=== PATIENT | female | born 1945 | race Caucasian/White ===

== ENCOUNTER 2020-01-06 13:19 | Outpatient (CLI) | payer MEDICARE, OTHER, SELFPAY ==
--- NOTE | 2020-01-06 13:33 | XR_ITS ---
WS: [id number] WRIST RIGHT TECHNIQUE: 3 views of the right wrist CLINICAL INFORMATION: PAIN IN RIGHT WRIST COMPARISON: None. FINDINGS: Moderate diffuse edema right arm and right hand. Degenerative arthritis the first CMC. No acute fract ures. Normal scapholunate interval. Normal radiocarpal joint. Distal radial ulnar joint is normal. Hy pertrophic spurring along the dorsal carpal bones. XR/XR wrist RT min 3V* [id number] IMPRESSION: 1. Moderate diffuse soft tissue edema. No acute fractures. 2. Degenerative arthritis first CMC.
--- NOTE | 2020-01-06 13:33 | XR_ITS ---
WS: [id number] ANKLE RIGHT TECHNIQUE: 3 views of the right ankle CLINICAL INFORMATION: PAIN IN RIGHT ANKLE AND JOINTS OF RIGHT FOOT COMPARISON: None. FINDINGS: Soft tissue edema. Screw fixation across the medial malleolus. Plate and screw fixation distal fibula lateral malleolus. Degenerative arthritis of the ankle mortise. Achilles and plantar calcaneal spurr ing. IMPRESSION: Moderate soft tissue edema with postoperative changes described above.
== END 2020-01-06 13:20 | disposition home or self-care (01) ==
PROVIDERS: Family Provider Nurse Practitioner Family; PCP Nurse Practitioner Family; Visit Provider Nurse Practitioner Family
DX: M19.031 Primary osteoarthritis, right wrist (principal); M25.531 Pain in right wrist; M25.571 Pain in right ankle and joints of right foot; R60.9 Edema, unspecified; Z98.890 Other specified postprocedural states
CPT/HCPCS: 73110; 73610

== ENCOUNTER 2020-04-19 12:42 | Outpatient (CLI) | payer MEDICARE, OTHER, SELFPAY ==
--- NOTE | 2020-04-19 12:50 | XR_ITS ---
WS: [id number] Lumbar spine, 3 views, 04/19/2020 Clinical Data: LOW BACK PAIN Comparison: Lumbar spine, 11/26/2008. Findings: No compression fractures or subluxation is seen. Degenerative disc narrowing is present at L4-L5 and L5-S1. There is a slight dextroscoliosis of the lumbar spine. Osteoarthritic spurring of all the lumb ar vertebral bodies is noted. The transverse processes and SI joints are normal. XR/XR lumbar spine 2-3V* [id number] Impression: 1. Degenerative disc disease at L4-L5 and L5-S1. 2. 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
== END 2020-04-19 12:43 | disposition home or self-care (01) ==
LOC: RADWPI 12:45
PROVIDERS: Family Provider Nurse Practitioner Family; PCP Nurse Practitioner Family; Visit Provider Nurse Practitioner Family
DX: M54.5 Low back pain (principal); R20.0 Anesthesia of skin; M51.36 Other intervertebral disc degeneration, lumbar region; M47.816 Spondylosis without myelopathy or radiculopathy, lumbar region
CPT/HCPCS: 72100

== ENCOUNTER → 2020-05-09 08:16 | Outpatient (BNVA) | payer MEDICARE, OTHER, SELFPAY | PROVIDERS: Family Provider Nurse Practitioner Family; PCP Nurse Practitioner Family; Referring Provider Nurse Practitioner Family; Visit Provider Anesthesiology Pain Medicine | DX: M54.42 Lumbago with sciatica, left side (principal); M62.830 Muscle spasm of back; M54.9 Dorsalgia, unspecified; M47.816 Spondylosis without myelopathy or radiculopathy, lumbar region; M48.061 Spinal stenosis, lumbar region without neurogenic claudication; Z79.891 Long term (current) use of opiate analgesic | CPT/HCPCS: 99204 ==

== ENCOUNTER → 2020-05-24 13:30 | Outpatient (BNVA) | payer MEDICARE, OTHER, SELFPAY | PROVIDERS: Family Provider Nurse Practitioner Family; PCP Nurse Practitioner Family; Visit Provider Anesthesiology Pain Medicine | DX: M47.816 Spondylosis without myelopathy or radiculopathy, lumbar region (principal); M54.9 Dorsalgia, unspecified | CPT/HCPCS: 64493; 64494; 64495; J3490 ==

== ENCOUNTER → 2020-06-07 09:38 | Outpatient (BNVA) | payer MEDICARE, OTHER, SELFPAY | PROVIDERS: Family Provider Nurse Practitioner Family; PCP Nurse Practitioner Family; Visit Provider Anesthesiology Pain Medicine | DX: M47.816 Spondylosis without myelopathy or radiculopathy, lumbar region (principal); M48.061 Spinal stenosis, lumbar region without neurogenic claudication; M54.9 Dorsalgia, unspecified; M62.830 Muscle spasm of back | CPT/HCPCS: 99213 ==

== ENCOUNTER → 2020-06-15 14:20 | Outpatient (BNVA) | payer MEDICARE, OTHER, SELFPAY | PROVIDERS: Family Provider Nurse Practitioner Family; PCP Nurse Practitioner Family; Visit Provider Anesthesiology Pain Medicine | DX: M47.816 Spondylosis without myelopathy or radiculopathy, lumbar region (principal); M54.9 Dorsalgia, unspecified | CPT/HCPCS: 64635; 64636; J1030 ==

== ENCOUNTER → 2020-06-29 12:21 | Outpatient (BNVA) | payer MEDICARE, OTHER, SELFPAY | PROVIDERS: Family Provider Nurse Practitioner Family; PCP Nurse Practitioner Family; Visit Provider Anesthesiology Pain Medicine | DX: M47.816 Spondylosis without myelopathy or radiculopathy, lumbar region (principal); M54.9 Dorsalgia, unspecified | CPT/HCPCS: 64635; 64636; J1030 ==

== ENCOUNTER → 2020-07-13 09:57 | Outpatient (BNVA) | payer MEDICARE, OTHER, SELFPAY | PROVIDERS: Family Provider Nurse Practitioner Family; PCP Nurse Practitioner Family; Visit Provider Anesthesiology Pain Medicine | DX: M47.816 Spondylosis without myelopathy or radiculopathy, lumbar region (principal); M48.061 Spinal stenosis, lumbar region without neurogenic claudication; M54.9 Dorsalgia, unspecified; M62.830 Muscle spasm of back | CPT/HCPCS: 99213 ==

== ENCOUNTER → 2020-08-24 12:46 | Outpatient (BNVA) | payer MEDICARE, OTHER, SELFPAY | PROVIDERS: Family Provider Nurse Practitioner Family; PCP Nurse Practitioner Family; Visit Provider Anesthesiology Pain Medicine | DX: M54.16 Radiculopathy, lumbar region (principal); M54.9 Dorsalgia, unspecified | CPT/HCPCS: 64483; 64484; J1040; J3490 ==

== ENCOUNTER → 2020-09-07 10:27 | Outpatient (BNVA) | payer MEDICARE, OTHER, SELFPAY | PROVIDERS: Family Provider Nurse Practitioner Family; PCP Nurse Practitioner Family; Visit Provider Anesthesiology Pain Medicine | DX: M54.42 Lumbago with sciatica, left side (principal); M47.816 Spondylosis without myelopathy or radiculopathy, lumbar region; M48.061 Spinal stenosis, lumbar region without neurogenic claudication; M62.830 Muscle spasm of back; M79.605 Pain in left leg; M54.9 Dorsalgia, unspecified | CPT/HCPCS: 99213 ==

== ENCOUNTER 2020-11-16 09:18 | Outpatient (CLI) | payer MEDICARE, OTHER, SELFPAY ==
[2020-11-16 09:20] VITALS: BP 166/92; BP 169/88; PULSE 71; PULSE 77; RESP 14; RESP 18; TEMP 36.6; O2SAT 95; O2SAT 96
--- NOTE | 2020-11-16 09:46 | AMB.MCA ---
Patient Information Referred by: Symptom onset date: 11/12/20 COVID 19 common symptoms: positive cough, non-productive cough, fatigue, body aches and nasal congestion COVID 19 other sytmptoms: negative chest pressure, chest pain, pleuritic pain, requiring oxygen or requiring more oxygen Severity: mild Treatment prior to arrival: none OZH COVID test results: No Data to Display outside results available, scanned Criteria/Plan Inclusion/Exclusion Criteria weight >/= 40kg, + direct test </= 10 days ago and symptom onset </= 10 days ago age >/= 65 not requiring hospitalization, not requiring oxygen (if not chronically on oxygen) and no increase oxygen requirement (if chronically on oxygen) Patient education patient/caregiver received/reviewed fact sheet, Emergency Use Authorization/unapproved drug status discussed with patient/caregiver, alternatives to this treatment discussed with patient/caregiver, risks and benefits of medication reviewed with patient/caregiver, patient/caregiver given opportunity for questions, which were answered and patient/caregiver consents to receiving Monoclonal Antibody Treatment Plan for treatment Meets criteria for Monoclonal Antibody infusion Ordering Monoclonal Antibody infusion for today
[2020-11-16 10:32] VITALS: BP 171/89; PULSE 63; RESP 16; TEMP 36.6; O2SAT 96
[2020-11-16 11:02] VITALS: BP 164/89; PULSE 66; RESP 16; TEMP 36.7; O2SAT 96
--- NOTE | 2020-11-16 11:27 | PC.NURSE ---
Prn note Patient infusion complete with no side effects noted. Will continue to monitor post infusion.
[2020-11-16 12:08] VITALS: BP 166/92; PULSE 71; RESP 14; TEMP 36.6; O2SAT 95
--- NOTE | 2020-11-16 12:10 | PC.NURSE ---
Discharge note Patient iv removed with catheter intact. Pressure dressing applied. Patient tolerated well. Patient monitored for post infusion side effects with no side effects noted. Patient left ambulatory to private vehicle.
--- NOTE | 2020-11-23 12:16 | DCPLANNER ---
Addendum entered by Freda Allen 11/29/20 13:46: repair manager called to check on patient after getting the BAM infusion. Patient stated that she is not feeling good at all. Still has all of the symptoms of COVID - patient has a follow up appointment with her primary care physician. She stated that she has not been admitted to hospital. Original Note: repair manager had message that patient received the BAM infusion. repair manager called to check on patient after receiving the BAM infusion. Patient stated that before the infusion she had a cold, had a cough and a fever. Patient stated that after the infusion, she is feeling good, she stated that her muscles are sore, and she has been light headed. Patient stated that she is going to call her primary care physician and scheduling an appointment.
== END 2020-11-16 12:13 | disposition home or self-care (01) ==
PROVIDERS: PCP Nurse Practitioner Family; Referring Provider Nurse Practitioner Family; Visit Provider Nurse Practitioner
DX: U07.1 COVID-19 (principal)
CPT/HCPCS: 96365; J7050

== ENCOUNTER 2020-12-22 10:35 | Inpatient (IN) | payer MEDICARE, OTHER, SELFPAY ==
[2020-12-22] VITALS (65 sets, daily range): BP systolic 129–216; BP diastolic 56–129; PULSE 81–118; RESP 17–42; TEMP 36.8–37.7; O2SAT 85–98; BMI 47.0
--- NOTE | 2020-12-22 11:03 | CT_ITS ---
WS: [id number] CT CHEST ANGIOGRAPHY WITH REFORMATS HISTORY: dyspnea post COVID TECHNIQUE: Contiguous axial images are obtained through the chest during arterial injection of intrav enous contrast. Images are reconstructed to evaluate the pulmonary arteries. MIP imaging also reviewe d. All CT scans at [facility] use at least one of these dose optimization techniques: aut omated exposure control; mA and/or kV adjustment per patient size (includes targeted exams where dose is matched to clinical indication); or iterative reconstruction. CONTRAST: Omnipaque 350; 95 mL IV. DLP: 575.48 mGy.cm COMPARISON: None available. Small bilateral lower lobe pulmonary emboli. There are scattered emboli extending from the proximal l obar branches into the segmental branches. There is mild dilatation of the RIGHT pulmonary artery. Th e main pulmonary artery is normal size. Atherosclerosis aorta. Small bilateral pleural effusions. Compressive atelectasis at the lung bases, LEFT greater than RIGHT . Small pericardial effusion. No adenopathy. Tricuspid regurgitation into hepatic vein. Stable RIGHT adrenal adenoma. LEFT parapelvic cysts. CT/CT angio chest PE protcl [id number] IMPRESSION: 1. Bilateral lower lobe pulmonary emboli. 2. Small bilateral pleural effusions with bibasilar atelectasis. 3. Cardiomegaly.
--- NOTE | 2020-12-22 11:03 | ECG_ITS ---
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: : 1945 Requested By: Franky Garcia Order Number: [id number] Reading MD: SAMANTHA LYON Measurements Intervals [place] Rate: 134 P: CO: QRS: 67 QRSD: 89 T: -55 QT: 301 QTc: 451 Interpretive Statements ATRIAL FIBRILLATION WITH RAPID VENTRICULAR RESPONSE LOW QRS VOLTAGE IN PRECORDIAL LEADS [QRS DEFLECTION < 1.0 mV IN CHEST LEADS] ST DEVIATION AND MODERATE T-WAVE ABNORMALITY, CONSIDER INFERIOR ISCHEMIA [-0.1+ mV T WAVE IN II/aVF] No previous ECG available for comparison Electronically Signed On 12-22-2020 18:17:33 BATTERY TESTER by SAMANTHA LYON [email or web address] regional hospitalCompringcleveland clinic mercy hospital.[employer]/store/OM/[id number]
--- NOTE | 2020-12-22 11:10 | W.ED.COVID ---
HPI - COVID General: Chief Complaint: COVID symptoms Stated Complaint: BODY ACHES, SOB, COVID +11/15 Time Seen by Provider: 12/22/20 10:53 Triage information: Has fever, cough or shortness of breath. No known COVID + exposure last 14 days History of Present Illness: HPI Narrative: 75 yo male presents emergency room complaining of fever and shortness of breath. States she has had these symptoms since mid November. November 15 she tested positive for Covid on the she received a bam infusion. She finished out her quarantine was not hospitalized and did not have any other problems other than she did end up requiring oxygen. She wears 2.5 L/min by nasal cannula at night only. This started after she was diagnosed. She had a low-grade temps up to 100.3 middle of a productive cough but no colored sputum. She gets some chest pain that begins epigastric and radiates up into the center of her chest does not go into the neck or arms. She is not diabetic not hypertensive no history of cancer no history of diabetes or heart disease. Prior testing date: 11/15/20 COVID 19 common symptoms: positive fever(s), chills, cough, productive cough, dyspnea, fatigue, body aches, nasal congestion, nausea and vomiting; negative headache(s), loss of sense of smell and/or taste, throat pain or diarrhea COVID 19 other sytmptoms: positive requiring oxygen; negative chest pain Onset (ago): week(s) Severity: mild Pertinent comorbid conditions: on home oxygen Treatment prior to arrival: none COVID Results: Nasal/Oral Coronavirus 2019 PCR Pending 12/22/20 21:49 12/22/20 Review of Systems Const: Reports: fever(s), chills, body aches and fatigue ENMT: Reports: nasal congestion; Denies: throat pain Card: Denies: chest pain, edema, dyspnea on exertion or orthopnea Resp: Reports: dyspnea and productive cough GI: Reports: nausea and vomiting; Denies: diarrhea : Denies: flank pain, difficulty voiding, dysuria, urinary frequency or urinary urgency Skin/Breast: Denies: rash or pruritus Neuro: Denies: headache(s) PFS ED PFSH: Family History Other Cancer Diabetes Social History Smoking and tobacco status: never smoked Second hand smoke exposure: No Alcohol intake: never History of recent travel: No Physical Exam Const: COMMON NORMALS: no acute distress GENERAL APPEARANCE: cooperative and comfortable ORIENTATION/CONSCIOUSNESS: Yes awake, Yes oriented to person, Yes oriented to place and Yes oriented to time HENMT: COMMON NORMALS: normocephalic, atraumatic and hearing grossly normal bilaterally HEAD & SCALP: normocephalic and atraumatic Neck/C-Spine: COMMON NORMALS: no JVD Resp: COMMON NORMALS: normal respiratory effort, No retractions and No use of accessory muscles AUSCULTATION: rales, wheezes and diminished lung sounds bilateral in the lower lung tom Cardio: COMMON NORMALS: no JVD, regular rate, regular rhythm and No murmurs present (Cardio) RATE: regular rate RHYTHM: regular rhythm GI: COMMON NORMALS: Soft to palpation and No hepatosplenomegaly present AUSCULTATION: Yes normoactive bowel sounds PALPATION: Yes Soft to palpation, No Tenderness to palpation present (GI), No Guarding due to palpation present (GI) and Yes No hepatosplenomegaly present Extremity: COMMON NORMALS: normal to inspection, capillary refill normal, no clubbing, cyanosis or edema, no calf tenderness and no pedal edema Neuro: SENSORIUM/ORIENTATION: Yes oriented to person, Yes oriented to place and Yes oriented to time Skin: COMMON NORMALS: no rashes or lesions noted GENERAL SKIN EXAM: no rashes or lesions noted Course Vital Signs: Vital signs: Vital Signs Temperature 98.7 F 12/23/20 08:00 Pulse Rate 97 12/23/20 12:00 Respiratory Rate 37 H 12/23/20 12:00 Blood Pressure 91/73 12/23/20 12:00 Pulse Oximetry 93 12/23/20 12:00 MDM - COVID MDM Narrative: Medical decision making narrative: Patient is bilateral pulmonary emboli as well as pulmonary effusions started on heparin in the event they decide to drain the effusions. I am also suspicious of underlying secondary pneumonia. Will admit to the hospitalist consult pulmonology or radiology for draining effusions as needed. Discussed with the patient and with ssis ssrs developer and hospitalist orders are written Lab Data: Labs: Lab Results 12/22/20 12/22/2012/22/21 Range/Units 11:11 11:40 11:40 WBC 16.5 H (4.0-10.0) 10^3/ uL RBC 4.04 L (4.1-5.3) 10^6/u L Hgb 10.9 L (11.5-15.3) g/dL Hct 36.5 L (37.0-47.0) % MCV 90.3 (81-99) fL MCH 27.0 L (28.0-34.0) pg MCHC 29.9 L (30.0-36.0) g/dL RDW 13.7 (12.1-15.1) % Plt Count 606 H (130-400) 10^3/c mm MPV 9.2 (7.4-10.4) fL Neut % (Auto) 78.7 % Lymph % (Auto) 12.2 % Nobles % (Auto) 7.8 % Eos % (Auto) 0.1 % Baso % (Auto) 0.2 % Neut # (Auto) 12.98 H (1.8-7.7) 10^3/u L Lymph # (Auto) 2.0 (0.8-4.8) 10^3/u L Nobles # (Auto) 1.3 H (0.2-0.9) 10^3/u L Eos # (Auto) 0.0 (0.0-0.8) 10^3/u L Baso # (Auto) 0.0 (0.0-0.1) 10^3/u L Nucleated RBC % (a uto) 0 % Nucleated RBCs # 0.0 /100WBC D-Dimer 6.09 H (0-0.59) ug/mIFE U Specimen Type Arterial Sample Site Right radial ABG pH 7.50 H (7.35-7.45) ABG pCO2 39.9 (35-45) mmHg ABG pO2 67.8 L (80.0-100.0) mmH g ABG HCO3 30.9 H (22-26) mmol/L ABG Base Excess 7.1 H (-2.0-2.0) mmol/ L Clayton Test Yes Hematocrit 34.7 L (37-47) % O2 Delivery Device Nasal cannula [employer] Developer ID [place] Sodium (136-145) mmol/L Potassium (3.5-5.1) mmol/L Chloride (98-107) mmol/L Carbon Dioxide (22-29) mmol/L Anion Gap (5-19) BUN (8-23) mg/dL Creatinine (0.5-0.9) mg/dL GFR Calculation Glucose (65-115) mg/dL Calculated Osmolal ity (285-295) mOsm/k g Lactic Acid (0.5-2.2) mmol/L Calcium (8.5-10.5) mg/dL Total Bilirubin (0.15-1.2) mg/dL AST (0-32) U/L ALT (0-33) U/L Alkaline Phosphata se (35-105) IU/L Creatine Kinase (26-192) U/L Troponin T Baselin e (0-10) ng/L Troponin T 120 Min mary[place] igloo (0-10) ng/L Delta Troponin T (0-10) ABS# C-Reactive Protein (0.0-4.9) mg/L NT-Pro-B Natriuret Pep (0-450) pg/mL Total Protein (6.6-8.7) g/dL Albumin (3.5-5.2) g/dL Globulin (1.3-4.6) g/dL Procalcitonin (0-0.5) ng/mL 12/22/20 12/22/20 12/22/20 Range/Units 11:40 11:40 11:40 WBC (4.0-10.0) 10^3/ uL RBC (4.1-5.3) 10^6/u L Hgb (11.5-15.3) g/dL Hct (37.0-47.0) % MCV (81-99) fL MCH (28.0-34.0) pg MCHC (30.0-36.0) g/dL RDW (12.1-15.1) % Plt Count (130-400) 10^3/c mm MPV (7.4-10.4) fL Neut % (Auto) % Lymph % (Auto) % Nobles % (Auto) % Eos % (Auto) % Baso % (Auto) % Neut # (Auto) (1.8-7.7) 10^3/u L Lymph # (Auto) (0.8-4.8) 10^3/u L Nobles # (Auto) (0.2-0.9) 10^3/u L Eos # (Auto) (0.0-0.8) 10^3/u L Baso # (Auto) (0.0-0.1) 10^3/u L Nucleated RBC % (a uto) % Nucleated RBCs # /100WBC D-Dimer (0-0.59) ug/mIFE U Specimen Type Sample Site ABG pH (7.35-7.45) ABG pCO2 (35-45) mmHg ABG pO2 (80.0-100.0) mmH g ABG HCO3 (22-26) mmol/L ABG Base Excess (-2.0-2.0) mmol/ L Clayton Test Hematocrit (37-47) % O2 Delivery Device [employer] Developer ID Sodium 142 (136-145) mmol/L Potassium 4.6 (3.5-5.1) mmol/L Chloride 104 (98-107) mmol/L Carbon Dioxide 28 (22-29) mmol/L Anion Gap 14.6 (5-19) BUN 13 (8-23) mg/dL Creatinine 0.5 (0.5-0.9) mg/dL GFR Calculation Not Reportable Glucose 146 H (65-115) mg/dL Calculated Osmolal ity 297 H (285-295) mOsm/k g Lactic Acid 1.2 (0.5-2.2) mmol/L Calcium 8.5 (8.5-10.5) mg/dL Total Bilirubin 0.2 (0.15-1.2) mg/dL AST 35 H (0-32) U/L ALT 59 H (0-33) U/L Alkaline Phosphata se 101 (35-105) IU/L Creatine Kinase 26 (26-192) U/L Troponin T Baselin e 12 H (0-10) ng/L Troponin T 120 Min [place] (0-10) ng/L Delta Troponin T (0-10) ABS# C-Reactive Protein 146.5 H (0.0-4.9) mg/L NT-Pro-B Natriuret Pep (0-450) pg/mL Total Protein 5.6 L (6.6-8.7) g/dL Albumin 2.6 L (3.5-5.2) g/dL Globulin 3.0 (1.3-4.6) g/dL Procalcitonin (0-0.5) ng/mL 12/22/20 12/22/20 12/22/20 Range/Units 11:40 14:16 14:16 WBC (4.0-10.0) 10^3/ uL RBC (4.1-5.3) 10^6/u L Hgb (11.5-15.3) g/dL Hct (37.0-47.0) % MCV (81-99) fL MCH (28.0-34.0) pg MCHC (30.0-36.0) g/dL RDW (12.1-15.1) % Plt Count (130-400) 10^3/c mm MPV (7.4-10.4) fL Neut % (Auto) % Lymph % (Auto) % Nobles % (Auto) % Eos % (Auto) % Baso % (Auto) % Neut # (Auto) (1.8-7.7) 10^3/u L Lymph # (Auto) (0.8-4.8) 10^3/u L Nobles # (Auto) (0.2-0.9) 10^3/u L Eos # (Auto) (0.0-0.8) 10^3/u L Baso # (Auto) (0.0-0.1) 10^3/u L Nucleated RBC % (a uto) % Nucleated RBCs # /100WBC D-Dimer (0-0.59) ug/mIFE U Specimen Type Sample Site ABG pH (7.35-7.45) ABG pCO2 (35-45) mmHg ABG pO2 (80.0-100.0) mmH g ABG HCO3 (22-26) mmol/L ABG Base Excess (-2.0-2.0) mmol/ L Clayton Test Hematocrit (37-47) % O2 Delivery Device [employer] Developer ID Sodium (136-145) mmol/L Potassium (3.5-5.1) mmol/L Chloride (98-107) mmol/L Carbon Dioxide (22-29) mmol/L Anion Gap (5-19) BUN (8-23) mg/dL Creatinine (0.5-0.9) mg/dL GFR Calculation Glucose (65-115) mg/dL Calculated Osmolal ity (285-295) mOsm/k g Lactic Acid (0.5-2.2) mmol/L Calcium (8.5-10.5) mg/dL Total Bilirubin (0.15-1.2) mg/dL AST (0-32) U/L ALT (0-33) U/L Alkaline Phosphata se (35-105) IU/L Creatine Kinase (26-192) U/L Troponin T Baselin e (0-10) ng/L Troponin T 120 Min [place] 11.57 H (0-10) ng/L Delta Troponin T -0.43 L (0-10) ABS# C-Reactive Protein (0.0-4.9) mg/L NT-Pro-B Natriuret Pep 1137 H (0-450) pg/mL Total Protein (6.6-8.7) g/dL Albumin (3.5-5.2) g/dL Globulin (1.3-4.6) g/dL Procalcitonin 0.12 (0-0.5) ng/mL COVID Results: Nasal/Oral Coronavirus 2019 PCR Pending 12/22/20 21:49 12/22/20 Discharge Plan Discharge Admit Provider: Baljinder Sales Coding Level of Care Code ED Preschool Teacher'S Assistant for [facility] Fwd Exam Comprehensive
[2020-12-22 11:26] LABS: ABG PCO2 39.9 mmHg (35-45); Base Excess ABG 7.1 mmol/L (-2.0-2.0); Blood Gas Allen Test YES; Blood Gas Operator Identificat MONRO; HCO3 ABG 30.9 mmol/L (22-26); PO2 ABG 67.8 mmHg (80.0-100.0)
[2020-12-22 11:27] LABS: Arterial Blood Gas Hematocrit 34.7 % (37-47); Blood Gas Sample Site RIGHT RADIAL; Blood Gas Sample Type ARTERIAL; Oxygen Device NASAL CANNULA
[2020-12-22 12:12] LABS: Basophils % 0.2 %; Eosinophils % 0.1 %; Hematocrit 36.5 % (37.0-47.0); Hemoglobin 10.9 g/dL (11.5-15.3); Lymphocytes % 12.2 %; Mean Corpuscular HGB Conc 29.9 g/dL (30.0-36.0); Mean Corpuscular Volume 90.3 fL (81-99); Mean Platelet Volume 9.2 fL (7.4-10.4); Monocytes # 1.3 10^3/uL (0.2-0.9); Monocytes % 7.8 %; Neutrophils # 12.98 10^3/uL (1.8-7.7); Neutrophils % 78.7 %; Nucleated Red Blood Cells % 0 %; Platelet Count 606 10^3/cmm (130-400); Red Blood Count 4.04 10^6/uL (4.1-5.3); Red Cell Distribution Width 13.7 % (12.1-15.1); White Blood Count 16.5 10^3/uL (4.0-10.0)
[2020-12-22] MEDS: metoprolol tartrate 1 mg/1 mL SDV 5 mL 5 MG IV (12:17)
[2020-12-22] MEDS: metoprolol tartrate 50 mg Tablet PO (12:19)
[2020-12-22 12:23] LABS: Alanine Aminotransferase 59 U/L (0-33); Albumin Level 2.6 g/dL (3.5-5.2); Alkaline Phosphatase 101 IU/L (35-105); Aspartate Amino Transferase 35 U/L (0-32); Blood Urea Nitrogen 13 mg/dL (8-23); C Reactive Protein 146.5 mg/L (0.0-4.9); Calcium 8.5 mg/dL (8.5-10.5); Carbon Dioxide 28 mmol/L (22-29); Chloride 104 mmol/L (98-107); Creatine Phosphokinase 26 U/L (26-192); Glucose 146 mg/dL (65-115); Lactic Sepsis W/Reflex 1.2 mmol/L (0.5-2.2); Osmolality Calculated 297 mOsm/kg (285-295); Sodium 142 mmol/L (136-145); Total Bilirubin 0.2 mg/dL (0.15-1.2); Total Protein 5.6 g/dL (6.6-8.7)
[2020-12-22 12:25] LABS: Troponin(5th) Baseline 12 ng/L (0-10)
[2020-12-22 12:31] LABS: Anion Gap 14.6 (5-19); Potassium 4.6 mmol/L (3.5-5.1)
[2020-12-22 12:46] LABS: D Dimer 6.09 ug/mIFEU (0-0.59)
--- NOTE | 2020-12-22 13:03 | ECG_ITS ---
[facility] Test Date: 2020-12-22 Pat Name: Nano Lu Department: Room: Gender: Female Presbyterian Clergy: : 1945 Requested By: Franky Garcia Order Number: [id number] Reading MD: SAMANTHA LYON Measurements Intervals [place] Rate: 83 P: 57 CT: 204 QRS: 55 QRSD: 99 T: 16 QT: 373 QTc: 439 Interpretive Statements SINUS RHYTHM LOW QRS VOLTAGE IN PRECORDIAL LEADS [QRS DEFLECTION < 1.0 mV IN CHEST LEADS] Compared to ECG 12/22/2020 11:20:45 Atrial fibrillation no longer present T-wave abnormality no longer present Possible ischemia no longer present Electronically Signed On 12-22-2020 18:19:27 SERVICE ARCHITECT by SAMANTHA LYON [email or web address] medical [id number]
[2020-12-22] MEDS: iohexol 350 mg/mL 100 mL Btl IV (13:43)
[2020-12-22] MEDS: levofloxacin-dextrose 5 % 750 MG/150 ML PREMIX 100 MG IV (14:59)
[2020-12-22] MEDS: heparin 5,000 unit/mL INJ 1 mL 4000 UNIT IVP (15:00)
--- NOTE | 2020-12-22 15:12 | PM.HP ---
Providers/Chief Complaint Primary Care Provider: GISSELLE Bonilla Chief Complaint: COVID SYMPTOMS, SOB, FEVER History of Present Illness Nano Lu is a 75 year old female who was diagnosed with COVID-19 in mid November who is presenting with complaints of increasing shortness of breath, fever, productive cough with white mucus, and generalized muscle aches. She received monoclonal antibodies when she was diagnosed with Covid. She also took a pill but does not know what it was exactly. Her initial symptoms were mild. However about 2 to 3 weeks ago her symptoms started worsening. Her shortness of breath became worse couple of weeks ago. Currently she describes her symptoms as severe. In emergency room she is found to have leukocytosis, mild hypoxia which improved with supplemental oxygen, CT showing bilateral lower lobe subsegmental PE, small bilateral pleural effusions, and A. fib on EKG. She converted back to sinus after 1 dose of metoprolol IV. She reports to 3 episodes of loose stools couple of days ago. No diarrhea currently. She denies abdominal pain. No rectal blood or black stool. No nausea or vomiting. Denies chest pain. Denies similar episodes in the past. Review of Systems General: Reports: 10 or more systems reviewed and unremarkable except in HPI and below Medications/Allergies Home Medications Medication Instructions Recorded Confirmed Last Taken Type ibuprofen 200 mg capsule 200 mg PO Q6H PRN 05/09/20 12/22/20 12/22/20 History Allergies Allergy/AdvReac Type Severity Reaction Status Date / Time codeine Allergy Unknown Verified 12/22/20 11:41 PFSH Acute PFSH: Family History Other Cancer Diabetes Social History Smoking and tobacco status: never smoked Second hand smoke exposure: No Alcohol intake: never History of recent travel: No Vitals/I&O/Wt Last Vital Signs Temp 98.4 F 12/22/20 10:47 Pulse 82 12/22/20 14:32 Resp 21 H 12/22/20 14:32 BP 158/114 12/22/20 14:32 Pulse Ox 96 12/22/20 14:32 Weight last 48 hrs Weight 136.078 kg Physical Exam Narrative: EXAM NARRATIVE: The patient is awake alert oriented. Mild distress. Mood and affect are appropriate. Responses are adequate. Skin is warm and dry. Moist mucous membranes. Eyes PERRL, extraocular muscles are intact. Normal speech. Speaks in full sentences. Neck is supple. No JVD Lungs decreased breath sounds bibasilarly. No crackles. No respiratory distress no accessory muscle use. Heart S1, S2, regular Abdomen is obese, soft, nontender, bowel sounds are present Extremities bilateral 2+ pedal edema, no cyanosis, no calf tenderness bilaterally. Normal capillary refill. Neuro exam is nonfocal. Data : 12/22/20 11:40 12/22/20 11:40 Other Labs: Generic Name Dose Route Start Last Admin Trade Name Freq PRN Reason Stop Dose Admin Levofloxacin/Dextrose 750 mg in 150 mls @ 100 mls/hr 12/22/20 14:29 12/22/20 14:59 Levaquin-D5w IV 12/22/20 15:58 100 mls/hr ONCE ONE Administration Protocol Laboratory Results WBC 16.5 10^3/uL (4.0-10.0) H 12/22/20 11:40 RBC 4.04 10^6/uL (4.1-5.3) L 12/22/20 11:40 Hgb 10.9 g/dL (11.5-15.3) L 12/22/20 11:40 Hct 36.5 % (37.0-47.0) L 12/22/20 11:40 MCV 90.3 fL (81-99) 12/22/20 11:40 MCH 27.0 pg (28.0-34.0) L 12/22/20 11:40 MCHC 29.9 g/dL (30.0-36.0) L 12/22/20 11:40 RDW 13.7 % (12.1-15.1) 12/22/20 11:40 Plt Count 606 10^3/cmm (130-400) H 12/22/20 11:40 MPV 9.2 fL (7.4-10.4) 12/22/20 11:40 Neut % (Auto) 78.7 % 12/22/20 11:40 Lymph % (Auto) 12.2 % 12/22/20 11:40 [place] % (Auto) 7.8 % 12/22/20 11:40 Eos % (Auto) 0.1 % 12/22/20 11:40 Baso % (Auto) 0.2 % 12/22/20 11:40 Neut # (Auto) 12.98 10^3/uL (1.8-7.7) H 12/22/20 11:40 Lymph # (Auto) 2.0 10^3/uL (0.8-4.8) 12/22/20 11:40 [place] # (Auto) 1.3 10^3/uL (0.2-0.9) H 12/22/20 11:40 Eos # (Auto) 0.0 10^3/uL (0.0-0.8) 12/22/20 11:40 Baso # (Auto) 0.0 10^3/uL (0.0-0.1) 12/22/20 11:40 Nucleated RBC % (auto) 0 % 12/22/20 11:40 Nucleated RBCs # 0.0 /100WBC 12/22/20 11:40 D-Dimer 6.09 ug/mIFEU (0-0.59) H 12/22/20 11:40 Specimen Type Arterial 12/22/20 11:11 Sample Site Right radial 12/22/20 11:11 ABG pH 7.50 (7.35-7.45) H 12/22/20 11:11 ABG pCO2 39.9 mmHg (35-45) 12/22/20 11:11 ABG pO2 67.8 mmHg (80.0-100.0) L 12/22/20 11:11 ABG HCO3 30.9 mmol/L (22-26) H 12/22/20 11:11 ABG Base Excess 7.1 mmol/L (-2.0-2.0) H 12/22/20 11:11 [place] Test Yes 12/22/20 11:11 Hematocrit 34.7 % (37-47) L 12/22/20 11:11 O2 Delivery Device Nasal cannula 12/22/20 11:11 Thermal Cutting Machine Operator ID [place] 12/22/20 11:11 Sodium 142 mmol/L (136-145) 12/22/20 11:40 Potassium 4.6 mmol/L (3.5-5.1) 12/22/20 11:40 Chloride 104 mmol/L (98-107) 12/22/20 11:40 Carbon Dioxide 28 mmol/L (22-29) 12/22/20 11:40 Anion Gap 14.6 (5-19) 12/22/20 11:40 BUN 13 mg/dL (8-23) 12/22/20 11:40 Creatinine 0.5 mg/dL (0.5-0.9) 12/22/20 11:40 GFR Calculation Not Reportable 12/22/20 11:40 Glucose 146 mg/dL (65-115) H 12/22/20 11:40 Calculated Osmolality 297 mOsm/kg (285-295) H 12/22/20 11:40 Lactic Acid 1.2 mmol/L (0.5-2.2) 12/22/20 11:40 Calcium 8.5 mg/dL (8.5-10.5) 12/22/20 11:40 Total Bilirubin 0.2 mg/dL (0.15-1.2) 12/22/20 11:40 AST 35 U/L (0-32) H 12/22/20 11:40 ALT 59 U/L (0-33) H 12/22/20 11:40 Alkaline Phosphatase 101 IU/L (35-105) 12/22/20 11:40 Creatine Kinase 26 U/L (26-192) 12/22/20 11:40 Troponin T Baseline 12 ng/L (0-10) H 12/22/20 11:40 Troponin T 120 Minute 11.57 ng/L (0-10) H 12/22/20 14:16 Delta Troponin T -0.43 ABS# (0-10) L 12/22/20 14:16 C-Reactive Protein 146.5 mg/L (0.0-4.9) H 12/22/20 11:40 Total Protein 5.6 g/dL (6.6-8.7) L 12/22/20 11:40 Albumin 2.6 g/dL (3.5-5.2) L 12/22/20 11:40 Globulin 3.0 g/dL (1.3-4.6) 12/22/20 11:40 Impressions Chest CTA 12/22/20 11:03 IMPRESSION: 1. Bilateral lower lobe pulmonary emboli. 2. Small bilateral pleural effusions with bibasilar atelectasis. 3. Cardiomegaly. EKG. First 1 is A. fib with RVR heart rate at around 130. Second EKG is normal sinus. Micro: Microbiology 12/22/20 12:43 Blood Culture - Preliminary Blood SPECIMEN COLLECTED 12/22/20 11:44 Blood Culture - Preliminary Blood SPECIMEN COLLECTED A&P Additional A&P Information 75-year-old female who was diagnosed with COVID-19 and received monoclonal antibodies mid-November who is presenting with worsening shortness of breath, fever, cough. Acute hypoxic respiratory failure secondary to below. Improved with supplemental oxygen. Currently on 2 L of oxygen via nasal cannula and feels better. Bilateral subsegmental PE after recent COVID-19 diagnosis. Being admitted to ICU. Will order echo. Heparin is going. Will be seen by Dr. Cross tomorrow. Recent COVID-19. Received monoclonal antibodies. I am not convinced that her symptoms are related to Covid 19 pneumonia. Not sure if she needs specific treatments for this infection such as convalescent plasma or steroids. We will try to discuss with the molecular technologist. However I think it would be appropriate to cover her with Rocephin and doxycycline for community-acquired type pneumonia. We will check her procalcitonin. We will continue monitor CRP and D-dimer. Also will prescribe vitamins. Bilateral pleural effusions. I suspect this is due to PE or pneumonia. ER physician spoke with interventional radiology. They are planning to do thoracentesis. Will wait for the echo report to rule out CHF. We will check her BNP. A. fib with RVR. Converted to sinus after first dose of metoprolol in ER. Will prescribe p.o. metoprolol. Will wait for echo. We will continue anticoagulation. Cardiac consult inpatient or outpatient. Anemia. Monitor. Morbid obesity. CODE STATUS. She was to be full code. The plan of care was discussed with the patient. She verbalized understanding and agreement. Attestations Medical Necessity Statement*: The patient is being admitted with several serious medical findings to ICU. I expect that she will spend more than 2 midnights in the hospital. 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
[2020-12-22 15:13] LABS: Troponin 5 2HR 11.57 ng/L (0-10)
[2020-12-22 15:14] LABS: Troponin 5 2HR Delta -0.43 ABS# (0-10)
[2020-12-22 15:35] LABS: Procalcitonin 0.12 ng/mL (0-0.5)
[2020-12-22] MEDS: famotidine 20 mg/2 mL INJ IVP (15:41)
[2020-12-22] MEDS: cefTRIAXone 1,000 MG in sodium chloride 0.9% (plus) 50 ML 100 MG IV ×2 (15:42→20:02)
[2020-12-22 16:26] LABS: NT Pro B Type Natriuretic Pept 1137 pg/mL (0-450)
--- NOTE | 2020-12-22 17:03 | ECG_ITS ---
[facility] Test Date: 2020-12-22 Pat Name: Nano Lu Department: Room: [facility] Gender: Female Test Technician: : 1945 Requested By: Frnaky Garcia Order Number: [id number] Reading MD: SAMANTHA LYON Measurements Intervals [place] Rate: 84 P: 59 GA: 203 QRS: 62 QRSD: 98 T: -16 QT: 369 QTc: 438 Interpretive Statements SINUS RHYTHM NONSPECIFIC T-WAVE ABNORMALITY Compared to ECG 12/22/2020 12:55:47 T-wave abnormality now present Electronically Signed On 12-22-2020 18:18:58 IMMERSION METALCLEANER by SAMANTHA LYON [email or web address] [email or web address] hospitals lake west medical centerYgrene Energy Fund/store/[id number]
[2020-12-22] MEDS: heparin drip 25,000 UNIT/500 ML PREMIX 98 UNIT IV (17:10)
--- NOTE | 2020-12-22 18:22 | PC.NURSE ---
EKG done at 1809 and shown to ER doctor
[2020-12-22 18:43] LABS: Troponin 5 6HR 10.98 ng/L (0-10); Troponin 5 6HR Delta -1.02 ng/L (0-12)
--- NOTE | 2020-12-22 19:45 | PC.NURSE ---
ICU arrival: Patient arrived to ICU9 via gurney from ER and accompanied by ER staff X1. 3L O2 via NC being given with SPO2 93%. Patient A&O4, and able to transfer self to and from ER bed to ICU bed with standby assistance. Pt brought suitcase, purse, and phone that was all included in her belongings, and were placed at bedside. Heparin gtt running at 36mL/hr. James light in reach. Bed locked and in lowest position. No verbalized needs at this time
--- NOTE | 2020-12-22 20:00 | PC.NURSE ---
Heparin gtt running at 36mL/hr at time of transfer. RN updated this in JAN to reflect current infusion rate (starting at 1900).
[2020-12-22] MEDS: guaiFENesin-dextromethorphan UDC 10 mL PO (20:02)
[2020-12-22] MEDS: doxycycline 100 mg Tablet PO (20:02)
[2020-12-22] MEDS: metoprolol tartrate 25 mg Tablet PO (20:04)
[2020-12-22 23:40] LABS: Partial Thromboplastin Time 58.5 SECONDS (23.9-36.7)
[2020-12-23] VITALS (296 sets, daily range): BP systolic 91–180; BP diastolic 56–114; PULSE 86–148; RESP 21–47; TEMP 36.8–38.3; O2SAT 90–95
[2020-12-23] MEDS: guaiFENesin-dextromethorphan UDC 10 mL PO (00:28)
[2020-12-23] MEDS: albuterol 8 gm MDI 2 PUFF INHALATION ×4 (01:08→23:14)
[2020-12-23] MEDS: famotidine 20 mg/2 mL INJ IVP (03:49)
[2020-12-23 05:22] LABS: Basophils # 0.1 10^3/uL (0.0-0.1); Basophils % 0.4 %; Eosinophils % 0.1 %; Hemoglobin 10.9 g/dL (11.5-15.3); Lymphocytes # 1.8 10^3/uL (0.8-4.8); Lymphocytes % 8.2 %; Mean Corpuscular HGB Conc 30.3 g/dL (30.0-36.0); Mean Corpuscular Hemoglobin 27.6 pg (28.0-34.0); Mean Corpuscular Volume 91.1 fL (81-99); Mean Platelet Volume 10.6 fL (7.4-10.4); Monocytes # 1.9 10^3/uL (0.2-0.9); Monocytes % 8.6 %; Neutrophils # 17.96 10^3/uL (1.8-7.7); Nucleated Red Blood Cells % 0 %; Platelet Count 451 10^3/cmm (130-400); Red Blood Count 3.95 10^6/uL (4.1-5.3); Red Cell Distribution Width 13.8 % (12.1-15.1); White Blood Count 21.9 10^3/uL (4.0-10.0)
[2020-12-23 05:32] LABS: D Dimer 7.49 ug/mIFEU (0-0.59)
[2020-12-23 05:45] LABS: Partial Thromboplastin Time 39.7 SECONDS (23.9-36.7)
--- NOTE | 2020-12-23 06:00 | USCV_ITS ---
Nano Lu Age: 75 Gender: F : 1945 Exam Date: 12/23/2020 05:19 Ordering Phys: Baljinder Sales MD Technologist: Winifred Henriquez [place] [facility] [place]: AFIB,PE BP: 151 / 112 HR: 108 Rhythm: Sinus Technical Quality: Suboptimal MEASUREMENTS (Male / Female) Normal Values 2D ECHO LV Diastolic Diameter PLAX 4.0 cm 4.2 - 5.9 / 3.9 - 5.3 cm LV Systolic Diameter PLAX 2.8 cm LV Chamber Size 3.4 cm IVS Diastolic Thickness 1.4 cm 0.6 - 1.0 / 0.6 - 0.9 cm IVS Systolic Thickness 1.8 cm LVPW Diastolic Thickness 1.6 cm 0.6 - 1.0 / 0.6 - 0.9 cm LVPW Systolic Thickness 1.8 cm RV Chamber Size 2.8 cm LVOT Diameter 2.0 cm LV Ejection Fraction 2D Teich 56.5 % LA Diameter 2.8 cm Aorta at Sinotubular Diameter 3.1 cm M-MODE LV Diastolic Diameter MM 4.2 cm 4.2 - 5.9 / 3.9 - 5.3 cm LV Systolic Diameter MM 3.2 cm LV Ejection Fraction MM Teich 47.3 % IVS Diastolic Thickness MM 1.7 cm 0.6 - 1.0 / 0.6 - 0.9 cm IVS Systolic Thickness MM 1.5 cm LVPW Diastolic Thickness MM 1.1 cm 0.6 - 1.0 / 0.6 - 0.9 cm LVPW Systolic Thickness MM 1.8 cm Aortic Annulus Diameter 3.1 cm LA Ao Ratio MM 1.0 MV E Point Septal Separation 0.7 cm DOPPLER AV Peak Velocity 176.0 cm/s LVOT Peak Velocity 63.0 cm/s AV Area Cont Eq vti 1.5 cm squared AV Area Cont Eq pk 1.2 cm squared MV Area PHT 7.9 cm squared Mitral E to A Ratio 0.9 MV E' Velocity 29.5 cm/s Mitral E to MV E' Ratio 3.2 Mitral E to LV E' Lateral Ratio 3.3 Mitral E to LV E' Septal Ratio 3.1 TR Peak Velocity 207.8 cm/s TR Peak Gradient 17.3 mmHg TR Mean Velocity 132.0 cm/s TR Mean Gradient 8.5 mmHg TR Velocity Time Integral 44.7 cm TV Peak E Velocity 82.0 cm/s Right Atrial Pressure 15.0 mmHg Pulmonary Artery Systolic Pressu 32.3 mmHg PV Peak Velocity 114.0 cm/s RV Acceleration Time 0.2 s RV Ejection Time 0.3 s RV AcT/ET 0.5 FINDINGS Left Ventricle Normal left ventricular cavity size. Normal left ventricular systolic function. Left ventricular ejection fraction is estimated at 70 %. Although no diagnostic regional wall motion abnormality could be identified, this possibility cannot be excluded based on the study. Right Ventricle Probably normal right ventricle size and systolic function. Right ventricular systolic pressure 32.3 mmHg. Right Atrium Right atrium not well visualized. Left Atrium Left atrium not well visualized. Mitral Valve Mitral valve not well visualized. Aortic Valve Aortic valve not well visualized. Tricuspid Valve Tricuspid valve not well visualized. Pulmonic Valve Pulmonic valve not well visualized. Pericardium Small pericardial effusion more along right ventricle. No evidence of hemodynamic compromise based on the study. Aorta Normal-sized aortic root. Dilated inferior vena cava with decreased respiratory variation. CONCLUSIONS 1. This is a technically very difficult study. 2. Normal left ventricular cavity size and systolic function. Left ventricular ejection fraction is estimated at 70 %. Although no diagnostic regional wall motion abnormality could be identified, this possibility cannot be excluded based on the study. 3. Small pericardial effusion more along right ventricle. 4. Dilated inferior vena cava. 5. Patient was tachycardic throughout the study. Recommend repeat study with echo contrast once patient's heart rate is better controlled. Daisy Malik MD (Electronically Signed) Final Date: 23 December 2020 12:48 S
--- NOTE | 2020-12-23 06:00 | XR_ITS ---
WS: [id number] PORTABLE CHEST HISTORY: Pneumonia and pleural effusions. COMPARISON: CT 12/22/2020. Mild pulmonary venous congestion. Small bilateral pleural effusions. RIGHT pleural effusion is small. LEFT pleural effusion with associated atelectasis and possible pneumonia at the lingula. Cardiac size: Cardiac silhouette is obscured by the airspace disease and fluid on the LEFT. Mediastinum/Aorta: Normal mediastinum. No osseous abnormality seen. XR/XR chest 1V portable [id number] IMPRESSION: 1. Small bilateral pleural effusions. 2. Mild CHF. 3. Increased consolidation at the lingula is probably pneumonia and pleural fl uid.
[2020-12-23] MEDS: heparin 5,000 unit/mL INJ 1 mL IV ×2 (06:10→22:11)
--- NOTE | 2020-12-23 06:36 | PC.NURSE ---
Shift Summary; Pt rested throughout shift. When up to use restroom, or with any repositioning/active movement pt desat's into low to mid 80%. Heparin gtt per protocol. A&O4. Persistently coughing up copious amounts of thick sputum. Send off collected along with sputum culture. Education given on medications, current plan of care, and need for resting. Education reinforced many times reminding pt the importance of breathing through nose in increase O2 intake through NC. Heparin @ 41mL/hr. 3L NC Bed low and locked. Call light in reach. No verbalized needs at this time. Report given to lianna jurado RN.
[2020-12-23 07:13] LABS: Procalcitonin 0.11 ng/mL (0-0.5)
[2020-12-23 07:24] LABS: Alanine Aminotransferase 47 U/L (0-33); Albumin Level 2.6 g/dL (3.5-5.2); Alkaline Phosphatase 93 IU/L (35-105); Anion Gap 14.4 (5-19); Aspartate Amino Transferase 26 U/L (0-32); Blood Urea Nitrogen 11 mg/dL (8-23); C Reactive Protein 153.7 mg/L (0.0-4.9); Calcium 8.8 mg/dL (8.5-10.5); Carbon Dioxide 28 mmol/L (22-29); Chloride 101 mmol/L (98-107); Globulin 3.9 g/dL (1.3-4.6); Glucose 150 mg/dL (65-115); Magnesium 1.6 mg/dL (1.7-2.3); Osmolality Calculated 290 mOsm/kg (285-295); Potassium 4.4 mmol/L (3.5-5.1); Sodium 139 mmol/L (136-145); Total Bilirubin 0.2 mg/dL (0.15-1.2); Total Protein 6.5 g/dL (6.6-8.7)
--- NOTE | 2020-12-23 08:50 | USCV_ITS ---
MichelleNano friend Age: 75 Gender: F : 1945 Exam Date: 12/23/2020 11:37 Ordering Phys: Baljinder Sales MD Technologist: Winifred Henriquez [place] [facility] [place]: PE BILATERALLY HISTORY: PE bilaterally PROCEDURES: The venous duplex Doppler examination of both lower extremities was performed in the standard fashion. The following venous structures were evaluated: common femoral vein, profunda vein, proximal portion of the greater saphenous vein, superficial femoral vein, and the popliteal vein. In addition, the posterior tibial and peroneal trunk were evaluated. Serial compression, augmentation maneuvers, and spectral Doppler flow evaluation were performed. FINDINGS: Normal 2-D Doppler and augmentation and compressibility throughout the lower extremity venous structures. Additional imaging through the proximal calf veins also reveals no thrombus. Limited evaluation of the greater saphenous vein is patent with no thrombus. CONCLUSIONS No DVT bilateral lower extremities. Dr. Anisha Salazar DO (Electronically Signed) Final Date: 23 December 2020 12:59 S
[2020-12-23] MEDS: magnesium sulfate premix 2 GM/50 ML PIGGYBACK IV (09:12)
[2020-12-23] MEDS: FUROsemide 10 mg/mL SDV 2mL 20 MG IVP ×2 (09:12→15:34)
[2020-12-23] MEDS: doxycycline 100 mg Tablet PO ×2 (09:13→17:09)
[2020-12-23] MEDS: metoprolol tartrate 25 mg Tablet PO ×2 (09:13→15:46)
[2020-12-23] MEDS: zinc gluconate 50 mg Tablet PO (09:13)
[2020-12-23] MEDS: thiamine 100 mg Tablet PO (09:13)
--- NOTE | 2020-12-23 10:55 | US_ITS ---
WS: [id number] Ultrasound chest. HISTORY: Pleural effusions. Only small bilateral pleural effusions are identified. The LEFT pleural effusion is small and contain s atelectatic lung tissue. There is a small RIGHT pleural effusion which also contains moderate amoun t of pleural thickening. This is only a very small effusion. US/US chest [id number] IMPRESSION: Small bilateral pleural effusions containing atelectatic lung. Not sufficient a mount to perform thoracentesis. Pleural fusions probably less than 200 cc.
--- NOTE | 2020-12-23 10:59 | PM.CONSULT ---
Providers/Reason For Consult Consulting Physican/Specialty*: Yayo Cross MD / Pulmonary Critical Care Reason for Consult*: Bilateral PE, Bilateral Pleural Effusions Attending Physician: Baljinder Sales Primary Care Provider: GISSELLE Bonilla History of Present Illness History of Present Illness Nano Lu is a 75 year old female who was diagnosed with COVID-19 in mid November presented to ED on 12/22/2020 with chief complaints of increasing shortness of breath, fever, productive cough with white mucus, and generalized muscle aches, gradual worsening over last 3 weeks. For COVID-19 infection she received monoclonal antibodies as outpatient. She also took a pill but does not know what it was exactly. In the ED, labs revealed leukocytosis, mild hypoxia which improved with 3 L supplemental oxygen, elevated BNP and CT showing bilateral lower lobe subsegmental PE, small bilateral pleural effusions, and A. fib on EKG. She converted back to sinus after 1 dose of metoprolol IV. She reports to 3 episodes of loose stools couple of days ago. No diarrhea currently. She denies abdominal pain. No rectal blood or black stool. No nausea or vomiting. Denies chest pain. Denies similar episodes in the past. Patient is admitted to ICU for close monitoring due to A. fib with RVR on presentation and CT showing bilateral lower lobe PE Pulmonary consulted for bilateral lower lobe PE and bilateral pleural effusions Patient seen at bedside in sitting position with 5 L nasal cannula. Patient reported having to use urinal every hour overnight (received Lasix 20 mg yesterday night in ED) her shortness of breath is worsening on exertion and requiring O2 to increase up to 5 L At rest her O2 requirement is still 3 L. Reported smoking socially during her teenage years. Review of Systems General: Reports: 10 or more systems reviewed and unremarkable except in HPI and below Meds/Allergies Home Medications and Allergies Home Medications Medication Instructions Recorded Confirmed Last Taken Type ibuprofen 200 mg capsule 200 mg PO Q6H PRN 05/09/20 12/22/20 12/22/20 History Allergies Allergy/AdvReac Type Severity Reaction Status Date / Time codeine Allergy Unknown Verified 12/22/20 11:41 Current Medications Current Medications Generic Name Dose Route Start Last Admin Trade Name Freq PRN Reason Stop Dose Admin Albuterol Sulfate 2 puff 12/23/20 00:26 12/23/20 08:47 Albuterol 8 Gm Mdi INHALATION 2 puff Q4H.RESPIRATORY PRN Administration SHORTNESS OF BREATH Doxycycline Monohydrate 100 mg 12/22/20 18:00 12/23/20 09:13 Doxycycline 100 Mg Tablet PO 100 mg BID MARIA DE JESUS Administration Protocol Famotidine 20 mg 12/22/20 15:00 12/23/20 03:49 Famotidine 20 Mg/2 Ml Inj IVP 20 mg Q12H MARIA DE JESUS Administration Guaifenesin/Dextromethorphan 10 ml 12/22/20 19:38 12/23/20 00:28 Guaifenesin-Dextromethorphan Udc 10 Ml PO 10 ml Q4H PRN Administration COUGH Heparin Sodium (Beef Lung) 0 unit 12/22/20 14:00 12/23/20 06:10 Heparin 5,000 Unit/Ml Inj 1 Ml IV 5,000 unit PRN PRN Administration Heparin weight-base protocol Protocol Heparin Sodium/Sodium Chloride 25,000 unit in 500 mls @ 0 mls/hr 12/22/20 14:00 12/23/20 07:06 Heparin Drip IV Infused .Q0M MARIA DE JESUS Titration Protocol Per Protocol Ceftriaxone Sodium 1,000 mg/ 50 mls @ 100 mls/hr 12/22/20 16:00 12/22/20 20:40 Sodium Chloride IV Infused Q24H MARIA DE JESUS Infusion Protocol Metoprolol Tartrate 25 mg 12/22/20 21:00 12/23/20 09:13 Metoprolol Tartrate 25 Mg Tablet PO 25 mg BID@0900,2100 MARIA DE JESUS Administration Thiamine Mononitrate 100 mg 12/23/20 09:00 12/23/20 09:13 Thiamine 100 Mg Tablet PO 100 mg DAILY MARIA DE JESUS Administration Vitamin D 5,000 unit 12/23/20 09:00 12/23/20 09:14 Cholecalciferol (Vitamin D3) 5,000 Unit Tablet PO Not Given DAILY MARIA DE JESUS Zinc Gluconate 50 mg 12/23/20 09:00 12/23/20 09:13 Zinc Gluconate 50 Mg Tablet PO 50 mg DAILY MARIA DE JESUS Administration PFSH Acute PFSH: Medical History History of ankle fracture Surgical History History of back surgery Hx of carpal tunnel repair Hx of knee surgery Family History Other Cancer Diabetes Social History Smoking and tobacco status: never smoked Second hand smoke exposure: No Alcohol intake: never History of recent travel: No Vitals/I&O/Wt Last Vital Signs Temp 98.7 F 12/23/20 08:00 Pulse 107 H 12/23/20 10:35 Resp 37 H 12/23/20 10:35 BP 122/81 12/23/20 10:35 Pulse Ox 92 12/23/20 10:35 12/22/20 12/23/20 12/23/20 22:59 06:59 14:59 Intake Total 679.667 / 679.667 750 / 1429.667 870.333 / 870.333 Balance 679.667 / 679.667 750 / 1429.667 870.333 / 870.333 Weight last 48 hrs Weight 10.625 oz Weight 300 lb Physical Exam Narrative: EXAM NARRATIVE: General: alert, in mild respiratory distress HEENT: conj clear, EOMI, PERRL, mmm, Neck: supple, no meningismus Heme: no cervical LAP Pulmonary: Bilateral lower lobe crackles Cardiovascular: rrr, nl s1s2, no mrg Abdomen: soft, nt, nd, no r/g, bs+ Extremities: pulses +, 2+ pedal edema, no c/c : no CVA tenderness Skin: intact, no rash MSK: no back or neck pain Neurologic: grossly intact Urinary Catheter Management^: Patel: Cath Placed During This Visit: yes Urinary Catheter Date of Insertion: 12/23/20 Urinary Catheter Time of Insertion: 09:30 Data Micro: Micro: Microbiology 12/22/20 12:43 Blood Culture - Pr eliminary Blood Gram positive c occi 12/22/20 11:44 Blood Culture - Pr eliminary Blood SPECIMEN COLLEC KWAKU A&P Assessment and plan (1) Acute respiratory failure with hypoxia: Status: Acute (2) Pulmonary embolism associated with COVID-19: Status: Acute (3) Afib: Status: Acute Qualifiers: Atrial fibrillation type: unspecified chronic Qualified Code(s): I48.20 - Chronic atrial fibrillation, unspecified # Acute hypoxic respiratory failure due to bilateral PE and patient with recent COVID-19 infection last month #New onset A. fib with RVR #Bilateral pleural effusions likely due to reduced cardiac function in view of A. fib RVR versus community-acquired pneumonia #Blood cultures positive from for gram-positive cocci -Currently patient is requiring 3 L nasal cannula and a 5 L on exertion and saturating 93% -CTPA 12/22/2020: On admission: Small bilateral lower lobe pulmonary embolus extending from proximal lobar branches to the segmental branches. -In ED patient converted to sinus after first dose of metoprolol. -Currently on metoprolol and heparin drip for A. fib RVR -Held heparin for possible right thoracentesis by IR; resume after thoracentesis -Recommended to do echo to assess LV function and right heart strain in view of bilateral PE -Recommended to give Lasix 20 mg and see how she responds; BNP 1170 -Covered with Rocephin and azithromycin for possible underlying committee acquired pneumonia (patient states she was not admitted nor did she receive antibiotics in the last 90 days) -1 set blood cultures positive for gram-positive cocci-likely contamination (low procalcitonin) but recommended to change antibiotics to vancomycin and cefepime; in view of worsening leukocytosis Recommendations conveyed to RN, hospitalist covering the patient Consult Attestations Medical Necessity Statement: Patient with new onset A. fib-rate controlled with metoprolol, bilateral subsegmental PE on heparin drip requiring 3 to 5 L of nasal cannula, currently being treated for pneumonia. Requires at least 2 days of close monitoring in the hospital Time Spent in Patient Care: (>than 50% of time spent in counselling and/or direct pt care on unit). Critical Care Time: Critical Care Time (min): 45 Coding Level of Care Code New Pt Acute Primer Assembler for Chg Fwd Patient Type New History Comprehensive Exam Comprehensive Medical Decision Making High Complexity Diagnoses Acute respiratory failure with hypoxia J96.01 Pulmonary embolism associated with COVID-19 U07.1; I26.99 Afib I48.20 Atrial fibrillation type: unspecified chronic Time Spent (min) 45
--- NOTE | 2020-12-23 11:34 | P.CONIM_ITS ---
Providers/Reason For Consult Consulting Physican/Specialty*: Dr. Malik, cardiology Reason for Consult*: Atrial fibrillation with response, hypoxic respiratory failure, PE Attending Physician: Baljinder Sales Primary Care Provider: GISSELLE Bonilla History of Present Illness History of Present Illness Nano Lu is a 75 year old female who was diagnosed with COVID-19 pneumonia in mid November and was treated with monoclonal antibodies. She was not hospitalized with Covid pneumonia as her initial symptoms were mild but over the last 3 weeks her symptoms have progressively worsened. She complains of shortness of breath as well as tachycardia. She presented to the ER for further evaluation and underwent CT chest and was found to have bilateral lower lobe subsegmental PE with small bilateral pleural effusions. She was also noted to have cardiomegaly and was in atrial fibrillation with rapid response on her EKG. She received metoprolol tartrate IV dose with scientology of sinus rhythm. She was started on heparin drip and was scheduled to have IR guided thoracentesis but bilateral pleural effusion was thought to be too small to be drained. She denies having any chest pain before or after admission. Her white count was at 16.5 on admission which has increased to 22 this morning. Hemoglobin 10.9, platelet count of 606. At the time of evaluation she continues to be shortness of breath. She used BiPAP for some time this morning and received Lasix 20 mg IV x1 with about 500 cc of urine output. Review of Systems General: Reports: 10 or more systems reviewed and unremarkable except in HPI and below Const: Denies: fever(s) or chills Card: Reports: palpitations; Denies: chest pain Resp: Reports: dyspnea, non-productive cough and wheezing GI: Reports: diarrhea; Denies: abdominal pain or hematochezia : Denies: difficulty voiding or hematuria Musc: Reports: extremity swelling Skin/Breast: Denies: rash Neuro: Denies: numbness in extremities or weakness in extremities Psych: Reports: anxiety; Denies: depression Endo: Denies: tired all the time William/Lymph: Denies: petechiae or purpura All/Imm: Denies: tongue swelling or facial swelling Meds/Allergies Home Medications and Allergies Home Medications Medication Instructions Recorded Confirmed Last Taken Type ibuprofen 200 mg capsule 200 mg PO Q6H PRN 05/09/20 12/22/20 12/22/20 History Allergies Allergy/AdvReac Type Severity Reaction Status Date / Time codeine Allergy Unknown Verified 12/22/20 11:41 Current Medications Current Medications Generic Name Dose Route Start Last Admin Trade Name Freq PRN Reason Stop Dose Admin Albuterol Sulfate 2 puff 12/23/20 00:26 12/23/20 08:47 Albuterol 8 Gm Mdi INHALATION 2 puff Q4H.RESPIRATORY PRN Administration SHORTNESS OF BREATH Doxycycline Monohydrate 100 mg 12/22/20 18:00 12/23/20 09:13 Doxycycline 100 Mg Tablet PO 100 mg BID MARIA DE JESUS Administration Protocol Famotidine 20 mg 12/22/20 15:00 12/23/20 03:49 Famotidine 20 Mg/2 Ml Inj IVP 20 mg Q12H MARIA DE JESUS Administration Guaifenesin/Dextromethorphan 10 ml 12/22/20 19:38 12/23/20 00:28 Guaifenesin-Dextromethorphan Udc 10 Ml PO 10 ml Q4H PRN Administration COUGH Heparin Sodium (Beef Lung) 0 unit 12/22/20 14:00 12/23/20 06:10 Heparin 5,000 Unit/Ml Inj 1 Ml IV 5,000 unit PRN PRN Administration Heparin weight-base protocol Protocol Heparin Sodium/Sodium Chloride 25,000 unit in 500 mls @ 0 mls/hr 12/22/20 14:00 12/23/20 07:06 Heparin Drip IV Infused .Q0M MARIA DE JESUS Titration Protocol Per Protocol Ceftriaxone Sodium 1,000 mg/ 50 mls @ 100 mls/hr 12/22/20 16:00 12/22/20 20:40 Sodium Chloride IV Infused Q24H MARIA DE JESUS Infusion Protocol Metoprolol Tartrate 25 mg 12/22/20 21:00 12/23/20 09:13 Metoprolol Tartrate 25 Mg Tablet PO 25 mg BID@0900,2100 MARIA DE JESUS Administration Thiamine Mononitrate 100 mg 12/23/20 09:00 12/23/20 09:13 Thiamine 100 Mg Tablet PO 100 mg DAILY MARIA DE JESUS Administration Vitamin D 5,000 unit 12/23/20 09:00 12/23/20 09:14 Cholecalciferol (Vitamin D3) 5,000 Unit Tablet PO Not Given DAILY MARIA DE JESUS Zinc Gluconate 50 mg 12/23/20 09:00 12/23/20 09:13 Zinc Gluconate 50 Mg Tablet PO 50 mg DAILY MARIA DE JESUS Administration PFSH Acute PFSH: Medical History (Updated 12/23/20 @ 17:19 by Daisy Malik MD) History of ankle fracture Surgical History (Updated 12/23/20 @ 17:13 by Daisy Malik MD) History of back surgery Hx of carpal tunnel repair Hx of knee surgery Family History Other Cancer Diabetes Social History Smoking and tobacco status: never smoked Second hand smoke exposure: No Alcohol intake: never History of recent travel: No Vitals/I&O/Wt Last Vital Signs Temp 98.7 F 12/23/20 08:00 Pulse 99 12/23/20 11:19 Resp 37 H 12/23/20 10:35 BP 122/81 12/23/20 10:35 Pulse Ox 92 12/23/20 11:19 12/22/20 12/23/20 12/23/20 22:59 06:59 14:59 Intake Total 679.667 / 679.667 750 / 1429.667 870.333 / 870.333 Balance 679.667 / 679.667 750 / 1429.667 870.333 / 870.333 Weight last 48 hrs Weight 10.625 oz Weight 300 lb Physical Exam Narrative: EXAM NARRATIVE: GENERAL: Obese woman lying in bed in some respiratory distress. Currently saturating 93% on oxygen via nasal cannula HEENT: Pupils equal round reactive to light. No pallor or icterus. NECK: Short thick neck, unable to appreciate JVD. CARDIOVASCULAR SYSTEM: S1-S2 regular. Tachycardia present no S3 or S4 present. No murmur rubs or gallops. RESPIRATORY SYSTEM: Coarse bilateral breath sounds absent at the bases. +wheezes and rhonchi. + use of accessory muscles. ABDOMEN: Soft, nontender and nondistended. Normal bowel sounds present. EXTREMITIES: No cyanosis or clubbing. 2+ bilateral edema. No signs of chronic venous insufficiency. CENTER MGR: Patient is alert oriented ?3. No focal neurological deficits. SKIN: Normal turgor and temperature. PSYCH: Normal insight and judgment. Urinary Catheter Management^: Patel: Cath Placed During This Visit: yes Urinary Catheter Date of Insertion: 12/23/20 Urinary Catheter Time of Insertion: 09:30 Data Labs: Other Labs: HbA1c 6.3, magnesium 1.6. AST 26, ALT 47. Baseline troponin T of 12, at 1 10:40 0.6 and at 6 hours of 10.9 Micro: Micro: Microbiology 12/22/20 12:43 Blood Culture - Pr eliminary Blood Gram positive c occi 12/22/20 11:44 Blood Culture - Pr eliminary Blood SPECIMEN COLLE KWAKU Imaging^: CTA Chest: Radiologist's impression: IMPRESSION: 1. Bilateral lower lobe pulmonary emboli. 2. Small bilateral pleural effusions with bibasilar atelectasis. 3. Cardiomegaly. CXR: Radiologist's impression: IMPRESSION: 1. Small bilateral pleural effusions. 2. Mild CHF. 3. Increased consolidation at the lingula is probably pneumonia and pleural fluid. Other Data: Attestation for Other Data: I personally reviewed and interpreted the following: Other data: EKG on arrival showed atrial fibrillation with rapid ventricular response at 134 bpm low QRS voltage in precordial leads. ST and T wave abnormality in inferolateral leads. Repeat EKG with sinus rhythm at 83 bpm, normal axis axis with low QRS voltage in precordial leads. Nonspecific T wave changes in lead III and V3 Third EKG with sinus rhythm with nonspecific T wave inversion. Echocardiogram 23 December 2020 CONCLUSIONS 1. This is a technically very difficult study. 2. Normal left ventricular cavity size and systolic function. Left ventricular ejection fraction is estimated at 70 %. Although no diagnostic regional wall motion abnormality could be identified, this possibility cannot be excluded based on the study. 3. Small pericardial effusion more along right ventricle. 4. Dilated inferior vena cava. 5. Patient was tachycardic throughout the study. Recommend repeat study with echo contrast once patient's heart rate is better controlled. A&P Assessment and plan (1) Acute respiratory failure with hypoxia: She was on 2- 3 L of oxygen via nasal cannula at home -likely multifactorial in setting of decompensation of heart failure with preserved ejection fraction, pneumonia (possible bacterial pneumonia with recent history of COVID-19 pneumonia) -Repeat COVID-19 PCR pending Status: Acute (2) CHF exacerbation: I will give another Lasix 20 mg IV x1 Status: Acute Qualifiers: Heart failure type: diastolic Qualified Code(s): I50.33 - Acute on chronic diastolic (congestive) heart failure (3) Afib: Currently on heparin drip; increase metoprolol tartrate to 25 mg every 8 hourly. Status: Acute Qualifiers: Atrial fibrillation type: unspecified chronic Qualified Code(s): I48.20 - Chronic atrial fibrillation, unspecified (4) Pulmonary embolism associated with COVID-19: Status: Acute Additional A&P Information Possible pneumonia : Empirically being treated with broad-spectrum antibiotics Normocytic anemia Bilateral small pleural effusion Small pericardial effusion Thrombocytosis Elevated D-dimer Hypomagnesemia Elevated liver enzymes Hypoalbuminemia Thank you for allowing me to participate in patient's care. Please feel free to call with questions or concerns. Consult Attestations Medical Necessity Statement: As per primary team Time Spent in Patient Care: Greater than 35 minutes (>than 50% of time spent in counselling and/or direct pt care on unit) . 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
[2020-12-23 11:40] LABS: Estmated Average Glucose 134; Hemoglobin A1C 6.3 % (4.0-6.0)
[2020-12-23 12:46] LABS: Partial Thromboplastin Time 26.1 SECONDS (23.9-36.7)
[2020-12-23] MEDS: heparin drip 25,000 UNIT/500 ML PREMIX 111.6 UNIT IV (14:21)
[2020-12-23] MEDS: vancomycin 1,500 MG/300 ML PIGGYBACK 200 MG IV ×2 (14:30→23:20)
--- NOTE | 2020-12-23 14:38 | PM.PN ---
Subjective Subjective: Interval history: And developed increased shortness of breath today. Was tachypneic. BiPAP is initiated. She reports feeling better with BiPAP. Denies chest pain or cough. No fever or chills. No nausea or vomiting. Medications: Reviewed: Yes Medication Review Details: Generic Name Dose Route Start Last Admin Trade Name Freq PRN Reason Stop Dose Admin Albuterol Sulfate 2 puff 12/23/20 00:26 12/23/20 08:47 Albuterol 8 Gm M di INHALATION 2 puff Q4H.RESPIRATORY P RN Administration SHORTNESS OF LOIS TH Doxycycline Monohy drate 100 mg 12/22/20 18:00 12/23/20 09:13 Doxycycline 100 Mg Tablet PO 100 mg BID MARIA DE JESUS Administration Protocol Guaifenesin/Dextro methorphan 10 ml 12/22/20 19:38 12/23/20 00:28 Guaifenesin-Dext romethorphan Udc 1 0 Ml PO 10 ml Q4H PRN Administration COUGH Heparin Sodium (Be ef Lung) 0 unit 12/22/20 14:00 12/23/20 06:10 Heparin 5,000 Un it/Ml Inj 1 Ml IV 5,000 unit PRN PRN Administration Heparin weight-ba se protocol Protocol Heparin Sodium/Sod ium Chloride 25,000 unit in 50 0 mls @ 0 mls/hr 12/22/20 14:00 12/23/20 14:21 Heparin Drip IV 41 unit/kg/hr .Q0M MARIA DE JESUS 111.6 mls/hr Administration Protocol Per Protocol Imipenem/Cilastati n Sodium 500 100 mls @ 200 mls /hr 12/23/20 14:00 12/23/20 14:29 mg/ Sodium Chlor sunil IV Infused Q6H MARIA DE JESUS Infusion Vancomycin/PEG/NAD A/Lysine/Water 1,500 mg in 300 m ls @ 200 mls/hr 12/23/20 15:00 12/23/20 14:30 Vancocin IV 200 mls/hr Q8H MARIA DE JESUS Administration Metoprolol Tartrat e 25 mg 12/22/20 21:00 12/23/20 09:13 Metoprolol Tartr ate 25 Mg Tablet PO 25 mg BID@0900,2100 MARIA DE JESUS Administration Thiamine Mononitra te 100 mg 12/23/20 09:00 12/23/20 09:13 Thiamine 100 Mg Tablet PO 100 mg DAILY MARIA DE JESUS Administration Vitamin D 5,000 unit 12/23/20 09:00 12/23/20 09:14 Cholecalciferol (Vitamin D3) 5,000 Unit Tablet PO Not Given DAILY [facility] Zinc Gluconate 50 mg 12/23/20 09:00 12/23/20 09:13 Zinc Gluconate 5 0 Mg Tablet PO 50 mg DAILY MARIA DE JESUS Administration Vitals/I&O/Wt Last Vital Signs Temp 98.7 F 12/23/20 08:00 Pulse 97 12/23/20 12:00 Resp 37 H 12/23/20 12:00 BP 91/73 12/23/20 12:00 Pulse Ox 93 12/23/20 12:00 12/22/20 12/23/20 12/23/20 22:59 06:59 14:59 Intake Total 679.667 / 679.667 750 / 1429.667 970.333 / 970.333 Balance 679.667 / 679.667 750 / 1429.667 970.333 / 970.333 Weight last 48 hrs Weight 137.127 kg Weight 301.2 g Weight 136.078 kg Physical Exam Narrative: EXAM NARRATIVE: The patient is awake alert oriented. Mild distress. Mood and affect are appropriate. Responses are adequate. Skin is warm and dry. Moist mucous membranes. Eyes PERRL, extraocular muscles are intact. Normal speech. Neck is supple. No JVD Lungs decreased breath sounds bibasilarly. No crackles. No respiratory distress no accessory muscle use. Heart S1, S2, regular Abdomen is obese, soft, nontender, bowel sounds are present Extremities bilateral 2+ pedal edema, no cyanosis, no calf tenderness bilaterally. Normal capillary refill. Neuro exam is nonfocal. Urinary Catheter Management^: Patel: Cath Placed During This Visit: yes Urinary Catheter Date of Insertion: 12/23/20 Urinary Catheter Time of Insertion: 09:30 Data : 12/23/20 04:25 12/23/20 06:21 Other Labs: Laboratory Results WBC 21.9 10^3/uL (4.0-10.0) H 12/23/20 04:25 RBC 3.95 10^6/uL (4.1-5.3) L 12/23/20 04:25 Hgb 10.9 g/dL (11.5-15.3) L 12/23/20 04:25 Hct 36.0 % (37.0-47.0) L 12/23/20 04:25 MCV 91.1 fL (81-99) 12/23/20 04:25 MCH 27.6 pg (28.0-34.0) L 12/23/20 04:25 MCHC 30.3 g/dL (30.0-36.0) 12/23/20 04:25 RDW 13.8 % (12.1-15.1) 12/23/20 04:25 Plt Count 451 10^3/cmm (130-400) H 12/23/20 04:25 MPV 10.6 fL (7.4-10.4) H 12/23/20 04:25 Neut % (Auto) 82.0 % 12/23/20 04:25 Lymph % (Auto) 8.2 % 12/23/20 04:25 [place] % (Auto) 8.6 % 12/23/20 04:25 Eos % (Auto) 0.1 % 12/23/20 04:25 Baso % (Auto) 0.4 % 12/23/20 04:25 Neut # (Auto) 17.96 10^3/uL (1.8-7.7) H 12/23/20 04:25 Lymph # (Auto) 1.8 10^3/uL (0.8-4.8) 12/23/20 04:25 [place] # (Auto) 1.9 10^3/uL (0.2-0.9) H 12/23/20 04:25 Eos # (Auto) 0.0 10^3/uL (0.0-0.8) 12/23/20 04:25 Baso # (Auto) 0.1 10^3/uL (0.0-0.1) 12/23/20 04:25 Nucleated RBC % (auto) 0 % 12/23/20 04:25 Nucleated RBCs # 0.0 /100WBC 12/23/20 04:25 APTT 26.1 SECONDS (23.9-36.7) 12/23/20 12:13 D-Dimer 7.49 ug/mIFEU (0-0.59) H 12/23/20 04:25 Specimen Type Arterial 12/22/20 11:11 Sample Site Right radial 12/22/20 11:11 ABG pH 7.50 (7.35-7.45) H 12/22/20 11:11 ABG pCO2 39.9 mmHg (35-45) 12/22/20 11:11 ABG pO2 67.8 mmHg (80.0-100.0) L 12/22/20 11:11 ABG HCO3 30.9 mmol/L (22-26) H 12/22/20 11:11 ABG Base Excess 7.1 mmol/L (-2.0-2.0) H 12/22/20 11:11 Clayton Test Yes 12/22/20 11:11 Hematocrit 34.7 % (37-47) L 12/22/20 11:11 O2 Delivery Device Nasal cannula 12/22/20 11:11 Roll Off Driver ID Monro 12/22/20 11:11 Sodium 139 mmol/L (136-145) 12/23/20 06:21 Potassium 4.4 mmol/L (3.5-5.1) 12/23/20 06:21 Chloride 101 mmol/L (98-107) 12/23/20 06:21 Carbon Dioxide 28 mmol/L (22-29) 12/23/20 06:21 Anion Gap 14.4 (5-19) 12/23/20 06:21 BUN 11 mg/dL (8-23) 12/23/20 06:21 Creatinine 0.4 mg/dL (0.5-0.9) L 12/23/20 06:21 GFR Calculation Not Reportable 12/23/20 06:21 Glucose 150 mg/dL (65-115) H 12/23/20 06:21 Estimat Average Glucose 134 12/23/20 04:25 Hemoglobin A1c 6.3 % (4.0-6.0) H 12/23/20 04:25 Calculated Osmolality 290 mOsm/kg (285-295) 12/23/20 06:21 Lactic Acid 1.2 mmol/L (0.5-2.2) 12/22/20 11:40 Calcium 8.8 mg/dL (8.5-10.5) 12/23/20 06:21 Magnesium 1.6 mg/dL (1.7-2.3) L 12/23/20 06:21 Total Bilirubin 0.2 mg/dL (0.15-1.2) 12/23/20 06:21 AST 26 U/L (0-32) 12/23/20 06:21 ALT 47 U/L (0-33) H 12/23/20 06:21 Alkaline Phosphatase 93 IU/L (35-105) 12/23/20 06:21 Creatine Kinase 26 U/L (26-192) 12/22/20 11:40 Troponin T Baseline 12 ng/L (0-10) H 12/22/20 11:40 Troponin T 120 Minute 11.57 ng/L (0-10) H 12/22/20 14:16 Delta Troponin T -0.43 ABS# (0-10) L 12/22/20 14:16 Troponin T Hi Sens 6Hr 10.98 ng/L (0-10) H 12/22/20 18:02 Troponin T Hi Sens 6Hr Delta -1.02 ng/L (0-12) L 12/22/20 18:02 C-Reactive Protein 153.7 mg/L (0.0-4.9) H 12/23/20 06:21 NT-Pro-B Natriuret Pep 1137 pg/mL (0-450) H 12/22/20 14:16 Total Protein 6.5 g/dL (6.6-8.7) L 12/23/20 06:21 Albumin 2.6 g/dL (3.5-5.2) L 12/23/20 06:21 Globulin 3.9 g/dL (1.3-4.6) 12/23/20 06:21 Procalcitonin 0.11 ng/mL (0-0.5) 12/23/20 06:21 Impressions Chest CTA 12/22/20 11:03 IMPRESSION: 1. Bilateral lower lobe pulmonary emboli. 2. Small bilateral pleural effusions with bibasilar atelectasis. 3. Cardiomegaly. Chest X-Ray 12/23/20 06:00 IMPRESSION: 1. Small bilateral pleural effusions. 2. Mild CHF. 3. Increased consolidation at the lingula is probably pneumonia and pleural fluid. Chest Ultrasound 12/23/20 10:55 IMPRESSION: Small bilateral pleural effusions containing atelectatic lung. Not sufficient amount to perform thoracentesis. Pleural fusions probably less than 200 cc. Micro: Microbiology 02/18/21 11:44 Blood Culture - Preliminary Blood NEGATIVE TO DATE 12/22/20 12:43 Blood Culture - Preliminary Blood Gram positive cocci A&P Additional A&P Information 75-year-old female who was diagnosed with COVID-19 and received monoclonal antibodies mid-November who is presenting with worsening shortness of breath, fever, cough. Acute hypoxic respiratory failure secondary to below. Worsened. Started on BiPAP. Currently feels a little better. Appreciate Dr. Cross's input. He does not feel that patient's respiratory problems are due to Covid pneumonia. No specific treatment for Covid is recommended. Recommends to change to antibiotics for broader coverage. Gram-positive bacteremia. Could be a contamination. We will recheck her cultures. For now we will cover her with vancomycin and Carbapenem. Bilateral subsegmental PE after recent COVID-19 diagnosis. Could not show right-sided strain. Heparin is going. Discussed with Dr. Cross. Switch her to p.o. anticoagulation probably tomorrow. Recent COVID-19. Received monoclonal antibodies. I am not convinced that her symptoms are related to Covid 19 pneumonia. We will continue vitamins for now. Bilateral pleural effusions. I suspect this is due to PE or cardiac. Most reevaluated by radiology again today. They described less than 200 cc of pleural fluid on each side. Not sufficient enough for safe thoracentesis and not sufficient enough to improve patient's respiratory failure with tapping. Will receive small amount of Lasix. A. fib with RVR. Converted to sinus after first dose of metoprolol in ER. Appreciate dr Malik's input! Continue management per her recommendations. Anemia. Stable. Monitor. Morbid obesity. CODE STATUS. Full code. The plan of care was discussed with the patient. She verbalized understanding and agreement. I also spoke with her son on her phone per her request. I described her condition to best of my knowledge. They both understand that her condition is pretty serious and possibility of worsening and decompensation is high. They verbalized satisfaction with the conversation and agreement with the plan of care Critical care time spent on this encounter is 40 minutes.. 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
[2020-12-23] MEDS: famotidine 20 mg Tablet PO (17:09)
[2020-12-23 18:06] LABS: Coronavirus Lab Test PTC Negative
[2020-12-23] MEDS: acetaminophen 325 mg Tablet 650 MG PO (19:59)
[2020-12-23] MEDS: heparin drip 25,000 UNIT/500 ML PREMIX 119.7 UNIT IV (20:20)
[2020-12-23 21:29] LABS: Partial Thromboplastin Time 52.8 SECONDS (23.9-36.7)
[2020-12-24] VITALS (253 sets, daily range): BP systolic 87–153; BP diastolic 51–101; PULSE 67–129; RESP 17–49; TEMP 36.8–37.5; O2SAT 87–98
[2020-12-24] MEDS: metoprolol tartrate 25 mg Tablet PO ×3 (01:32→21:17)
[2020-12-24] MEDS: dexmedetomidine 400 MCG in sodium chloride 0.9% (100 ml) 100 ML IV (01:56)
[2020-12-24 03:27] LABS: Partial Thromboplastin Time 67.1 SECONDS (23.9-36.7)
[2020-12-24 05:42] LABS: Basophils # 0.1 10^3/uL (0.0-0.1); Basophils % 0.2 %; Eosinophils # 0.1 10^3/uL (0.0-0.8); Eosinophils % 0.4 %; Hematocrit 33.3 % (37.0-47.0); Lymphocytes # 2.1 10^3/uL (0.8-4.8); Lymphocytes % 10.5 %; Mean Corpuscular Hemoglobin 27.9 pg (28.0-34.0); Mean Platelet Volume 11.2 fL (7.4-10.4); Monocytes # 1.9 10^3/uL (0.2-0.9); Monocytes % 9.2 %; Neutrophils # 15.95 10^3/uL (1.8-7.7); Neutrophils % 78.8 %; Nucleated Red Blood Cells % 0 %; Platelet Count 400 10^3/cmm (130-400); Red Blood Count 3.58 10^6/uL (4.1-5.3); Red Cell Distribution Width 14.5 % (12.1-15.1); White Blood Count 20.3 10^3/uL (4.0-10.0)
[2020-12-24] MEDS: famotidine 20 mg Tablet PO ×2 (06:27→17:38)
[2020-12-24] MEDS: vancomycin 1,500 MG/300 ML PIGGYBACK 200 MG IV ×2 (06:29→21:17)
[2020-12-24] MEDS: heparin drip 25,000 UNIT/500 ML PREMIX 44 UNIT IV (07:00)
[2020-12-24] MEDS: doxycycline 100 mg Tablet PO ×2 (08:21→17:38)
[2020-12-24] MEDS: thiamine 100 mg Tablet PO (08:21)
[2020-12-24] MEDS: zinc gluconate 50 mg Tablet PO (08:22)
[2020-12-24] MEDS: dexmedetomidine 400 MCG in sodium chloride 0.9% (100 ml) 100 ML 17.8 MCG IV ×2 (08:36→14:43)
[2020-12-24 08:40] LABS: ABG PCO2 42.1 mmHg (35-45); ABG PH Result 7.45 (7.35-7.45); Arterial Blood Gas Hematocrit 31.6 % (37-47); Base Excess ABG 4.6 mmol/L (-2.0-2.0); Blood Gas Operator Identificat ED; Blood Gas Sample Site Brachial, right; Blood Gas Sample Type Arterial; HCO3 ABG 29.1 mmol/L (22-26); Oxygen Device BIPAP; PO2 ABG 70.6 mmHg (80.0-100.0)
[2020-12-24 08:40] LABS: Procalcitonin 0.15 ng/mL (0-0.5)
[2020-12-24 08:51] LABS: Alanine Aminotransferase 36 U/L (0-33); Alkaline Phosphatase 100 IU/L (35-105); Aspartate Amino Transferase 26 U/L (0-32); Blood Urea Nitrogen 16 mg/dL (8-23); C Reactive Protein 217.2 mg/L (0.0-4.9); Calcium 8.5 mg/dL (8.5-10.5); Carbon Dioxide 26 mmol/L (22-29); Chloride 99 mmol/L (98-107); Globulin 3.8 g/dL (1.3-4.6); Glucose 134 mg/dL (65-115); Magnesium 1.8 mg/dL (1.7-2.3); Osmolality Calculated 281 mOsm/kg (285-295); Sodium 134 mmol/L (136-145); Total Bilirubin 0.3 mg/dL (0.15-1.2); Total Protein 5.8 g/dL (6.6-8.7)
[2020-12-24 08:54] LABS: Anion Gap 13.9 (5-19); Potassium 4.9 mmol/L (3.5-5.1)
[2020-12-24] MEDS: ipratropium-albuterol 3 mL Neb INHALATION ×3 (09:08→19:49)
[2020-12-24] MEDS: morphine 4 mg/mL SDV 1 mL 2 MG IVP (09:18)
--- NOTE | 2020-12-24 12:28 | XRR_ITS ---
PROCEDURE INFORMATION: Exam: XR Chest, 1 View Exam date and time: 12/24/2020 12:29 PM Age: 75 years old Clinical indication: Shortness of breath; Additional info: Resp failure, tachypnea, hypoxia TECHNIQUE: Imaging protocol: XR of the chest Views: 1 view. COMPARISON: CR XR chest 1V portable [id number] 12/23/2020 5:32 AM FINDINGS: Lungs: Unremarkable. No consolidation. Pleural spaces: Unremarkable. No pleural effusion. No pneumothorax. Heart/Mediastinum: Unremarkable. No cardiomegaly. Bones/joints: Unremarkable. XR/XR chest 1V portable [id number] IMPRESSION: No acute findings.
--- NOTE | 2020-12-24 12:45 | PM.PN ---
Subjective Subjective: Interval history: Urine output 1900 mL, remains in positive balance of 900 mL. ABG this morning pH of 7.45, PO2 70.6, FiO2 of 30 (BiPAP 16/8) and bicarb of 26. Medications: Reviewed: Yes Vitals/I&O/Wt Last Vital Signs Temp 99.0 F 12/24/20 04:10 Pulse 75 12/24/20 11:20 Resp 40 H 12/24/20 09:18 BP 101/70 12/24/20 06:05 Pulse Ox 96 12/24/20 11:20 12/23/20 12/24/20 12/24/20 22:59 06:59 14:59 Intake Total 1600 / 2570.333 568.610 / 3138.943 531.88 / 531.88 Output Total 1350 / 1350 550 / 1900 0 / 0 Balance 250 / 1220.333 18.610 / 1238.943 531.88 / 531.88 Weight last 48 hrs Weight 302 lb 4.8 oz Weight 302 lb 5 oz Weight 10.625 oz Physical Exam Narrative: EXAM NARRATIVE: GENERAL: Obese woman lying in bed in some respiratory distress. Currently saturating 93% on oxygen via nasal cannula HEENT: Pupils equal round reactive to light. No pallor or icterus. NECK: Short thick neck, unable to appreciate JVD. CARDIOVASCULAR SYSTEM: S1-S2 regular. no S3 or S4 present. No murmur rubs or gallops. RESPIRATORY SYSTEM: Coarse bilateral breath sounds absent at the bases. +wheezes and rhonchi. + use of accessory muscles. ABDOMEN: Soft, nontender and nondistended. Normal bowel sounds present. EXTREMITIES: No cyanosis or clubbing. 2+ bilateral edema. No signs of chronic venous insufficiency. FIELD UNDERWRITER: Patient is alert oriented ?3. No focal neurological deficits. SKIN: Normal turgor and temperature. PSYCH: Normal insight and judgment. Urinary Catheter Management^: Patel: Cath Placed During This Visit: yes Reason for Continuing Indwelling Catheter: Accurate Measurement of Urinary Output in Critically Ill Patients Urinary Catheter Date of Insertion: 12/23/20 Urinary Catheter Time of Insertion: 09:30 Data : 12/24/20 05:03 12/24/20 07:26 Micro: Microbiology 12/22/20 12:43 Blood Culture - Preliminary Blood Coagulase negativ staphylococc 12/23/20 17:05 Blood Culture - Preliminary Blood SPECIMEN COLLECTED 12/23/20 17:00 Blood Culture - Preliminary Blood SPECIMEN COLLECTED 12/22/20 11:44 Blood Culture - Preliminary Blood NEGATIVE TO DATE A&P Assessment and plan (1) Acute respiratory failure with hypoxia: She was on 2- 3 L of oxygen via nasal cannula at home -likely multifactorial in setting of decompensation of heart failure with preserved ejection fraction, pneumonia (possible bacterial pneumonia with recent history of COVID-19 pneumonia) -Repeat COVID-19 PCR negative Status: Acute (2) CHF exacerbation: I will give another Lasix 40 mg IV x1 and start on lasix 40 mg IV q 12h Status: Acute Qualifiers: Heart failure type: diastolic Qualified Code(s): I50.33 - Acute on chronic diastolic (congestive) heart failure (3) Afib: Paroxysmal atrial fibrillation currently back in sinus rhythm -Patient remained in sinus rhythm overnight and this morning on telemetry review currently on heparin drip; decrease metoprolol tartrate back to 25 mg Q 12 h -transition to lovenox to reduce intake Status: Acute Qualifiers: Atrial fibrillation type: unspecified chronic Qualified Code(s): I48.20 - Chronic atrial fibrillation, unspecified (4) Pulmonary embolism associated with COVID-19: -Currently on heparin drip. Status: Acute Additional A&P Information Possible pneumonia : Empirically being treated with broad-spectrum antibiotics Normocytic anemia Bilateral small pleural effusion Small pericardial effusion Thrombocytosis Elevated D-dimer Hypomagnesemia: Replaced Elevated liver enzymes Hypoalbuminemia Thank you for allowing me to participate in patient's care. Please feel free to call with questions or concerns. Attestations Medical Necessity Statement*: Needs hospital stay for decompensated congestive heart failure, respiratory failure Time Spent in Patient Care: 16 - 35 minutes (>than 50% of time spent in counselling and/or direct pt care on unit). 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
[2020-12-24] MEDS: FUROsemide 10 mg/mL SDV 4mL 40 MG IVP ×2 (12:59→17:38)
--- NOTE | 2020-12-24 13:40 | P.PN_ITS ---
Subjective Subjective: Interval history: The patient is still on BiPAP. Tachypnea is present. She is awake alert and oriented. Denies any pain. No nausea or vomiting. No fevers or chills. No cough. Medications: Reviewed: Yes Medication Review Details: Generic Name Dose Route Start Last Admin Trade Name Freq PRN Reason Stop Dose Admin Acetaminophen 650 mg 12/22/20 14:55 12/23/20 19:59 Acetaminophen 32 5 Mg Tablet PO 650 mg Q6H PRN Administration MILD PAIN Albuterol Sulfate 2 puff 12/23/20 00:26 12/23/20 23:14 Albuterol 8 Gm M di INHALATION 2 puff Q4H.RESPIRATORY P RN Administration SHORTNESS OF LOIS TH Albuterol/Ipratrop ium 3 ml 12/24/20 08:47 12/24/20 13:40 Ipratropium-Albu terol 3 Ml Neb INHALATION 3 ml Q4H PRN Administration SHORTNESS OF LOIS TH Doxycycline Monohy drate 100 mg 12/22/20 18:00 12/24/20 08:21 Doxycycline 100 Mg Tablet PO 100 mg BID MARIA DE JESUS Administration Protocol Famotidine 20 mg 12/23/20 18:00 12/24/20 06:27 Famotidine 20 Mg Tablet PO 20 mg Q12H MARIA DE JESUS Administration Guaifenesin/Dextro methorphan 10 ml 12/22/20 19:38 12/23/20 00:28 Guaifenesin-Dext romethorphan Udc 1 0 Ml PO 10 ml Q4H PRN Administration COUGH Heparin Sodium (Be ef Lung) 0 unit 12/22/20 14:00 12/23/20 22:11 Heparin 5,000 Un it/Ml Inj 1 Ml IV 2,700 unit PRN PRN Administration Heparin weight-ba se protocol Protocol Heparin Sodium/Sod ium Chloride 25,000 unit in 50 0 mls @ 0 mls/hr 12/22/20 14:00 12/23/20 20:20 Heparin Drip IV 44 unit/kg/hr .Q0M MARIA DE JESUS 119.7 mls/hr Administration Protocol Per Protocol Imipenem/Cilastati n Sodium 500 100 mls @ 200 mls /hr 12/23/20 14:00 12/24/20 13:39 mg/ Sodium Chlor sunil IV Infused Q6H MARIA DE JESUS Infusion Vancomycin/PEG/NAD A/Lysine/Water 1,500 mg in 300 m ls @ 200 mls/hr 12/23/20 15:00 12/24/20 07:59 Vancocin IV Infused Q8H MARIA DE JESUS Infusion Dexmedetomidine HC l 400 mcg/ 104 mls @ 0 mls/h r 12/24/20 01:45 12/24/20 08:36 Sodium Chloride IV 0.5 mcg/kg/hr .Q0M MARIA DE JESUS 17.8 mls/hr Administration Protocol Per Protocol Morphine Sulfate 2 mg 12/22/20 19:14 12/24/20 09:18 Morphine 4 Mg/Ml Sdv 1 Ml IVP 2 mg Q4H PRN Administration SEVERE PAIN Thiamine Mononitra te 100 mg 12/23/20 09:00 12/24/20 08:21 Thiamine 100 Mg Tablet PO 100 mg DAILY MARIA DE JESUS Administration Vitamin D 5,000 unit 12/23/20 09:00 12/24/20 08:24 Cholecalciferol (Vitamin D3) 5,000 Unit Tablet PO Not Given DAILY MARIA DE JESUS Zinc Gluconate 50 mg 12/23/20 09:00 12/24/20 08:22 Zinc Gluconate 5 0 Mg Tablet PO 50 mg DAILY MARIA DE JESUS Administration Vitals/I&O/Wt Last Vital Signs Temp 99.0 F 12/24/20 04:10 Pulse 72 12/24/20 13:30 Resp 43 H 12/24/20 13:30 BP 117/66 12/24/20 13:30 Pulse Ox 96 12/24/20 13:30 12/23/20 12/24/20 12/24/20 22:59 06:59 14:59 Intake Total 1600 / 2570.333 568.610 / 3138.943 681.88 / 681.88 Output Total 1350 / 1350 550 / 1900 200 / 200 Balance 250 / 1220.333 18.610 / 1238.943 481.88 / 481.88 Weight last 48 hrs Weight 137.121 kg Weight 137.127 kg Weight 301.2 g Physical Exam Narrative: EXAM NARRATIVE: The patient is awake alert oriented. Mild distress. Mood and affect are appropriate. Skin is warm and dry. Moist mucous membranes. Eyes PERRL, extraocular muscles are intact. Normal speech. Neck is supple. No JVD Decreased breath sounds bilaterally, tachypnea, tolerating BiPAP mask okay. No accessory muscle use. No crackles or wheezes. Heart S1, S2, regular Abdomen is obese, soft, nontender, bowel sounds are present Extremities bilateral 2+ pedal edema, no cyanosis, no calf tenderness bilaterally. Normal capillary refill. Neuro exam is nonfocal. Urinary Catheter Management^: Patel: Cath Placed During This Visit: yes Reason for Continuing Indwelling Catheter: Accurate Measurement of Urinary Output in Critically Ill Patients Urinary Catheter Date of Insertion: 12/23/20 Urinary Catheter Time of Insertion: 09:30 Data : 12/24/20 05:03 12/24/20 07:26 Other Labs: Laboratory Results WBC 20.3 10^3/uL (4.0-10.0) H 12/24/20 05:03 RBC 3.58 10^6/uL (4.1-5.3) L 12/24/20 05:03 Hgb 10.0 g/dL (11.5-15.3) L 12/24/20 05:03 Hct 33.3 % (37.0-47.0) L 12/24/20 05:03 MCV 93.0 fL (81-99) 12/24/20 05:03 MCH 27.9 pg (28.0-34.0) L 12/24/20 05:03 MCHC 30.0 g/dL (30.0-36.0) 12/24/20 05:03 RDW 14.5 % (12.1-15.1) 12/24/20 05:03 Plt Count 400 10^3/cmm (130-400) 12/24/20 05:03 MPV 11.2 fL (7.4-10.4) H 12/24/20 05:03 Neut % (Auto) 78.8 % 12/24/20 05:03 Lymph % (Auto) 10.5 % 12/24/20 05:03 [place] % (Auto) 9.2 % 12/24/20 05:03 Eos % (Auto) 0.4 % 12/24/20 05:03 Baso % (Auto) 0.2 % 12/24/20 05:03 Neut # (Auto) 15.95 10^3/uL (1.8-7.7) H 12/24/20 05:03 Lymph # (Auto) 2.1 10^3/uL (0.8-4.8) 12/24/20 05:03 [place] # (Auto) 1.9 10^3/uL (0.2-0.9) H 12/24/20 05:03 Eos # (Auto) 0.1 10^3/uL (0.0-0.8) 12/24/20 05:03 Baso # (Auto) 0.1 10^3/uL (0.0-0.1) 12/24/20 05:03 Nucleated RBC % (auto) 0 % 12/24/20 05:03 Nucleated RBCs # 0.0 /100WBC 12/24/20 05:03 APTT 67.1 SECONDS (23.9-36.7) H 12/24/20 02:55 D-Dimer 7.49 ug/mIFEU (0-0.59) H 12/23/20 04:25 Specimen Type Arterial 12/24/20 08:30 Sample Site Brachial, right 12/24/20 08:30 ABG pH 7.45 (7.35-7.45) 12/24/20 08:30 ABG pCO2 42.1 mmHg (35-45) 12/24/20 08:30 ABG pO2 70.6 mmHg (80.0-100.0) L 12/24/20 08:30 ABG HCO3 29.1 mmol/L (22-26) H 12/24/20 08:30 ABG Base Excess 4.6 mmol/L (-2.0-2.0) H 12/24/20 08:30 [place] Test N/a 12/24/20 08:30 Hematocrit 31.6 % (37-47) L 12/24/20 08:30 O2 Delivery Device Bipap 12/24/20 08:30 FiO2 30.0 % 12/24/20 08:30 Mill Tender ID Ed 12/24/20 08:30 Sodium 134 mmol/L (136-145) L 12/24/20 07:26 Potassium 4.9 mmol/L (3.5-5.1) 12/24/20 07:26 Chloride 99 mmol/L (98-107) 12/24/20 07:26 Carbon Dioxide 26 mmol/L (22-29) 12/24/20 07:26 Anion Gap 13.9 (5-19) 12/24/20 07:26 BUN 16 mg/dL (8-23) 12/24/20 07:26 Creatinine 0.5 mg/dL (0.5-0.9) 12/24/20 07:26 GFR Calculation Not Reportable 12/24/20 07:26 Glucose 134 mg/dL (65-115) H 12/24/20 07:26 Estimat Average Glucose 134 12/23/20 04:25 Hemoglobin A1c 6.3 % (4.0-6.0) H 12/23/20 04:25 Calculated Osmolality 281 mOsm/kg (285-295) L 12/24/20 07:26 Lactic Acid 1.2 mmol/L (0.5-2.2) 12/22/20 11:40 Calcium 8.5 mg/dL (8.5-10.5) 12/24/20 07:26 Magnesium 1.8 mg/dL (1.7-2.3) 12/24/20 07:26 Total Bilirubin 0.3 mg/dL (0.15-1.2) 12/24/20 07:26 AST 26 U/L (0-32) 12/24/20 07:26 ALT 36 U/L (0-33) H 12/24/20 07:26 Alkaline Phosphatase 100 IU/L (35-105) 12/24/20 07:26 Creatine Kinase 26 U/L (26-192) 12/22/20 11:40 Troponin T Baseline 12 ng/L (0-10) H 12/22/20 11:40 Troponin T 120 Minute 11.57 ng/L (0-10) H 12/22/20 14:16 Delta Troponin T -0.43 ABS# (0-10) L 12/22/20 14:16 Troponin T Hi Sens 6Hr 10.98 ng/L (0-10) H 12/22/20 18:02 Troponin T Hi Sens 6Hr Delta -1.02 ng/L (0-12) L 12/22/20 18:02 C-Reactive Protein 217.2 mg/L (0.0-4.9) H 12/24/20 07:26 NT-Pro-B Natriuret Pep 1137 pg/mL (0-450) H 12/22/20 14:16 Total Protein 5.8 g/dL (6.6-8.7) L 12/24/20 07:26 Albumin 2.0 g/dL (3.5-5.2) L 12/24/20 07:26 Globulin 3.8 g/dL (1.3-4.6) 12/24/20 07:26 Procalcitonin 0.15 ng/mL (0-0.5) 12/24/20 07:26 Nasal/Oral COVID-19 PCR Negative 12/22/20 21:49 Impressions Chest CTA 12/22/20 11:03 IMPRESSION: 1. Bilateral lower lobe pulmonary emboli. 2. Small bilateral pleural effusions with bibasilar atelectasis. 3. Cardiomegaly. Chest Ultrasound 12/23/20 10:55 IMPRESSION: Small bilateral pleural effusions containing atelectatic lung. Not sufficient amount to perform thoracentesis. Pleural fusions probably less than 200 cc. Chest X-Ray 12/24/20 12:28 IMPRESSION: No acute findings. Micro: Microbiology 12/22/20 12:43 Blood Culture - Preliminary Blood Coagulase negativ staphylococc 12/23/20 17:05 Blood Culture - Preliminary Blood SPECIMEN COLLECTED 12/23/20 17:00 Blood Culture - Preliminary Blood SPECIMEN COLLECTED 12/22/20 11:44 Blood Culture - Preliminary Blood NEGATIVE TO DATE A&P Additional A&P Information 75-year-old female who was diagnosed with COVID-19 and received monoclonal antibodies mid-November who is presenting with worsening shortness of breath, fever, cough. Acute hypoxic respiratory failure secondary to below. Worsened. Change the settings on BiPAP which improved her tachypnea. Currently feels a little b parker. Repeat chest x-ray did not show any infiltrates or CHF, no pleural effusion was described. No evidence of Covid pneumonia. We will reassess her ABGs. If there is no significant improvement in the ABGs or her respiratory function will consider intubation. Gram-positive bacteremia. Probably a contamination. Repeat cultures are pending. For now we will continue current antibiotics per Dr. Cross's recommendation. Bilateral subsegmental PE after recent COVID-19 diagnosis. We will stop heparin drip later today and start Lovenox twice daily to decrease amount of fluids that she is getting with IV. After stabilization we will switch her to p.o. antiCoagulant. Recent COVID-19. Received monoclonal antibodies. I am not convinced that her symptoms are related to Covid 19 pneumonia. We will continue vitamins for now. Bilateral pleural effusions. Probably very small and improved with diuresis. Continue close monitoring. A. fib with RVR. Converted to sinus after first dose of metoprolol in ER. Appreciate dr Malik's input! Continue management per her recommendations. Anemia. Stable. Monitor. Morbid obesity. CODE STATUS. Full code. The plan of care was discussed with the patient. She verbalized understanding and agreement. Critical care time spent on this encounter is 40 minutes.. Attestations Medical Necessity Statement*: The patient is in critical condition in ICU requires respiratory support. 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
[2020-12-24 15:03] LABS: Partial Thromboplastin Time 49.9 SECONDS (23.9-36.7)
[2020-12-24] MEDS: heparin 5,000 unit/mL INJ 1 mL IV (15:25)
--- NOTE | 2020-12-24 15:36 | PC.NURSE ---
Heparin running at 44ml/hr on IV pump upon start of my shift. This ml/hr rate is correct per the heparin protocol sheet. Shows in the mar that the pump is running at 119ml/hr and at 44u/kg/hr. Looks as if the night rn had switched the u/kg/hr and ml/hr. Will have her fix it when she is back tonight.
--- NOTE | 2020-12-24 16:27 | PC.NURSE ---
1500 vanc dose held due to elevated trough.
[2020-12-25] VITALS (288 sets, daily range): BP systolic 107–176; BP diastolic 53–103; PULSE 82–141; RESP 14–42; TEMP 37.2–37.4; O2SAT 78–96
[2020-12-25] MEDS: acetaminophen 325 mg Tablet 650 MG PO (00:40)
[2020-12-25] MEDS: guaiFENesin-dextromethorphan UDC 10 mL PO ×3 (01:28→19:31)
[2020-12-25] MEDS: morphine 4 mg/mL SDV 1 mL 2 MG IVP (03:22)
[2020-12-25 04:40] LABS: Basophils % 0.2 %; Eosinophils # 0.1 10^3/uL (0.0-0.8); Eosinophils % 0.7 %; Hematocrit 33.5 % (37.0-47.0); Hemoglobin 10.1 g/dL (11.5-15.3); Lymphocytes # 2.4 10^3/uL (0.8-4.8); Mean Corpuscular HGB Conc 30.1 g/dL (30.0-36.0); Mean Corpuscular Hemoglobin 27.8 pg (28.0-34.0); Mean Corpuscular Volume 92.3 fL (81-99); Mean Platelet Volume 9.7 fL (7.4-10.4); Monocytes # 1.9 10^3/uL (0.2-0.9); Monocytes % 9.7 %; Neutrophils # 14.99 10^3/uL (1.8-7.7); Neutrophils % 76.2 %; Nucleated Red Blood Cells % 0 %; Platelet Count 424 10^3/cmm (130-400); Red Blood Count 3.63 10^6/uL (4.1-5.3); Red Cell Distribution Width 13.8 % (12.1-15.1); White Blood Count 19.7 10^3/uL (4.0-10.0)
[2020-12-25 05:05] LABS: D Dimer 4.58 ug/mIFEU (0-0.59)
[2020-12-25 05:08] LABS: Procalcitonin 0.19 ng/mL (0-0.5)
[2020-12-25 05:21] LABS: Alanine Aminotransferase 44 U/L (0-33); Albumin Level 2.2 g/dL (3.5-5.2); Alkaline Phosphatase 85 IU/L (35-105); Anion Gap 14.6 (5-19); Aspartate Amino Transferase 51 U/L (0-32); Blood Urea Nitrogen 22 mg/dL (8-23); C Reactive Protein 212.2 mg/L (0.0-4.9); Calcium 8.1 mg/dL (8.5-10.5); Carbon Dioxide 27 mmol/L (22-29); Chloride 100 mmol/L (98-107); Globulin 3.9 g/dL (1.3-4.6); Glucose 122 mg/dL (65-115); Magnesium 1.9 mg/dL (1.7-2.3); Osmolality Calculated 291 mOsm/kg (285-295); Potassium 3.6 mmol/L (3.5-5.1); Sodium 138 mmol/L (136-145); Total Bilirubin 0.3 mg/dL (0.15-1.2); Total Protein 6.1 g/dL (6.6-8.7)
[2020-12-25 05:33] LABS: ABG PCO2 45.1 mmHg (35-45); ABG PH Result 7.45 (7.35-7.45); Arterial Blood Gas Hematocrit 35.4 % (37-47); Base Excess ABG 6.4 mmol/L (-2.0-2.0); Blood Gas Operator Identificat JB; Blood Gas Sample Site Brachial, right; Blood Gas Sample Type Arterial; HCO3 ABG 31.2 mmol/L (22-26); Oxygen Device HAG; PO2 ABG 63.5 mmHg (80.0-100.0)
[2020-12-25] MEDS: famotidine 20 mg Tablet PO ×2 (05:34→17:04)
[2020-12-25] MEDS: FUROsemide 10 mg/mL SDV 4mL 40 MG IVP ×3 (05:35→21:49)
--- NOTE | 2020-12-25 06:52 | XRR_ITS ---
PROCEDURE INFORMATION: Exam: XR Chest, 1 View Exam date and time: 12/25/2020 6:03 AM Age: 75 years old Clinical indication: Condition or disease; Lung condition and disease; Pleural effusion; Other: Not specified; Additional info: Pleural effusions TECHNIQUE: Imaging protocol: XR of the chest Views: 1 view. COMPARISON: CR (CHEST, ) 12/24/2020 12:54 PM FINDINGS: Lungs: See Pleural spaces finding. Pleural spaces: Persistent small bilateral pleural effusions with adjacent airspace opacities, left greater than right. The airspace opacities in the right lower lung have mildly worsened. No pneumothorax. Heart/Mediastinum: Stable cardiomediastinal silhouette. Bones/joints: Degenerative changes of the spine seen. XR/XR chest 1V portable [id number] IMPRESSION: 1. Slight worsening of right lower lung airspace opacities. 2. Persistent small bilateral pleural effusions, and dense airspace opacity in the left lower lobe.
[2020-12-25] MEDS: ipratropium-albuterol 3 mL Neb INHALATION ×4 (07:52→19:46)
--- NOTE | 2020-12-25 08:52 | ECG_ITS ---
[facility] Test Date: 2020-12-25 Pat Name: Nano Lu Department: Room: [facility] Gender: Female Communications Writer: : 1945 Requested By: Baljinder Patrick Order Number: [id number] Rebel MD: Daisy Malik M.D. Measurements Intervals [place] Rate: 137 P: 100 HI: 181 QRS: 110 QRSD: 94 T: -36 QT: 330 QTc: 499 Interpretive Statements Possible atrial flutter with rapid ventricular response ARM LEADS REVERSED [INVERTED P AND QRS IN I] ABNORMAL RHYTHM ECG Compared to ECG 12/22/2020 18:10:20 Sinus rhythm no longer present T-wave abnormality no longer present Electronically Signed On 12-26-2020 12:48:22 BEAUTY ADVISOR by Daisy Malik M.D. [id number]
[2020-12-25] MEDS: doxycycline 100 mg Tablet PO ×2 (08:53→17:05)
[2020-12-25] MEDS: thiamine 100 mg Tablet PO (08:53)
[2020-12-25] MEDS: magnesium oxide 400 mg tablet PO ×2 (08:53→17:05)
[2020-12-25] MEDS: zinc gluconate 50 mg Tablet PO (08:53)
[2020-12-25] MEDS: metoprolol tartrate 25 mg Tablet PO ×4 (08:53→23:07)
[2020-12-25] MEDS: potassium chloride oral liq 20 mEq/15 mL UDC PO (08:53)
--- NOTE | 2020-12-25 09:27 | P.PN_ITS ---
Subjective Subjective: Interval history: She has been transitioned to HiFlo from BiPaP. Cumulative UO 5.7 L and +2.2 L Telemetry with short runs of atrial tachycardia/A. fib with RVR, frequent PACs and atrial bigeminy Medications: Reviewed: Yes Medication Review Details: Current Medications Acetaminophen (Acetaminophen 325 Mg Tablet) 650 mg PO Q6H PRN PRN Reason: MILD PAIN Last Admin: 12/25/20 00:40 Dose: 650 mg Documented by: Albuterol Sulfate (Albuterol 8 Gm Mdi) 2 puff INHALATION Q4H.RESPIRATORY PRN PRN Reason: SHORTNESS OF BREATH Last Admin: 12/23/20 23:14 Dose: 2 puff Documented by: Albuterol/Ipratropium (Ipratropium-Albuterol 3 Ml Neb) 3 ml INHALATION Q4H PRN PRN Reason: SHORTNESS OF BREATH Last Admin: 12/25/20 07:52 Dose: 3 ml Documented by: Alprazolam (Alprazolam 0.25 Mg Tablet) 0.125 mg PO TID PRN PRN Reason: ANXIETY Doxycycline Monohydrate (Doxycycline 100 Mg Tablet) 100 mg PO BID [facility]; Protocol Last Admin: 12/25/20 08:53 Dose: 100 mg Documented by: Enoxaparin Sodium 100 mg/ (Enoxaparin Sodium 30 mg) 130 mg SUBCUT Q12H MARIA DE JESUS Last Admin: 12/25/20 05:35 Dose: 130 mg Documented by: Famotidine (Famotidine 20 Mg Tablet) 20 mg PO Q12H MARIA DE JESUS Last Admin: 12/25/20 05:34 Dose: 20 mg Documented by: Furosemide (Furosemide 10 Mg/Ml Sdv 4ml) 40 mg IVP Q12H MARIA DE JESUS Last Admin: 12/25/20 05:35 Dose: 40 mg Documented by: Guaifenesin/Dextromethorphan (Guaifenesin-Dextromethorphan Udc 10 Ml) 10 ml PO Q4H PRN PRN Reason: COUGH Last Admin: 12/25/20 07:38 Dose: 10 ml Documented by: Imipenem/Cilastatin Sodium 500 (mg/ Sodium Chloride) 100 mls @ 200 mls/hr IV Q6H [facility] Last Infusion: 12/25/20 08:27 Dose: Infused Documented by: Dexmedetomidine HCl 400 mcg/ (Sodium Chloride) 104 mls @ 0 mls/hr IV .Q0M [facility]; Protocol Last Titration: 12/24/20 15:30 Dose: Infused Documented by: Magnesium Oxide (Magnesium Oxide 400 Mg Tablet) 400 mg PO BID [facility] Stop: 12/25/20 18:01 Last Admin: 12/25/20 08:53 Dose: 400 mg Documented by: Metoprolol Tartrate (Metoprolol Tartrate 25 Mg Tablet) 25 mg PO TID [facility] Morphine Sulfate (Morphine 4 Mg/Ml Sdv 1 Ml) 2 mg IVP Q4H PRN PRN Reason: SEVERE PAIN Last Admin: 12/25/20 03:22 Dose: 2 mg Documented by: Ondansetron HCl (Ondansetron 2 Mg/Ml Sdv 2 Ml) 4 mg IVP Q6H PRN PRN Reason: NAUSEA AND VOMITING Potassium Chloride (Potassium Chloride Oral Liq 20 Meq/15 Ml Udc) 20 meq PO DAILY [facility] Last Admin: 12/25/20 08:53 Dose: 20 meq Documented by: Thiamine Mononitrate (Thiamine 100 Mg Tablet) 100 mg PO DAILY [facility] Last Admin: 12/25/20 08:53 Dose: 100 mg Documented by: Vitamin D (Cholecalciferol (Vitamin D3) 5,000 Unit Tablet) 5,000 unit PO DAILY [facility] Last Admin: 12/24/20 08:24 Dose: Not Given Documented by: Zinc Gluconate (Zinc Gluconate 50 Mg Tablet) 50 mg PO DAILY [facility] Last Admin: 12/25/20 08:53 Dose: 50 mg Documented by: Vitals/I&O/Wt Last Vital Signs Temp 99.4 F 12/25/20 09:15 Pulse 121 H 12/25/20 09:15 Resp 31 H 12/25/20 09:15 BP 176/92 12/25/20 09:15 Pulse Ox 89 L 12/25/20 09:15 12/24/20 12/25/20 12/25/20 22:59 06:59 14:59 Intake Total 1372.693 / 2158.573 100 / 2258.573 580 / 580 Output Total 250 / 450 1600 / 2050 1750 / 1750 Balance 1122.693 / 1708.573 -1500 / 208.573 -1170 / -1170 Weight last 48 hrs Weight 302 lb 4.8 oz Weight 302 lb 5 oz Physical Exam Narrative: EXAM NARRATIVE: GENERAL: Obese woman lying in bed in some respiratory distress. Currently saturating 93% on oxygen via nasal cannula HEENT: Pupils equal round reactive to light. No pallor or icterus. NECK: Short thick neck, unable to appreciate JVD. CARDIOVASCULAR SYSTEM: S1-S2 regular. no S3 or S4 present. No murmur rubs or gallops. RESPIRATORY SYSTEM: Coarse bilateral breath sounds absent at the bases. +wheezes and rhonchi. + use of accessory muscles. ABDOMEN: Soft, nontender and nondistended. Normal bowel sounds present. EXTREMITIES: No cyanosis or clubbing. 2+ bilateral edema. No signs of chronic venous insufficiency. CAREER DEVELOPMENT FACILITATOR: Patient is alert oriented ?3. No focal neurological deficits. SKIN: Normal turgor and temperature. PSYCH: Normal insight and judgment. Urinary Catheter Management^: Patel: Cath Placed During This Visit: yes Reason for Continuing Indwelling Catheter: Accurate Measurement of Urinary Outpu t in Critically Ill Patients Urinary Catheter Date of Insertion: 12/23/20 Urinary Catheter Time of Insertion: 09:30 Data : 12/25/20 04:11 12/25/20 04:11 Micro: Microbiology 12/23/20 17:00 Blood Culture - Preliminary Blood NEGATIVE TO DATE 12/23/20 17:05 Blood Culture - Preliminary Blood NEGATIVE TO DATE 12/22/20 12:43 Blood Culture - Preliminary Blood Coagulase negativ staphylococc Attestation for Other Data: I personally reviewed and interpreted the following: Other data: Chest x-ray 25 December 2020 IMPRESSION: 1. Slight worsening of right lower lung airspace opacities. 2. Persistent small bilateral pleural effusions, and dense airspace opacity in the left lower lobe. A&P Assessment and plan (1) Acute respiratory failure with hypoxia: She was on 2- 3 L of oxygen via nasal cannula at home. Currently on BiPAP/high flow -likely multifactorial in setting of decompensation of heart failure with preserved ejection fraction, pneumonia (possible bacterial pneumonia with recent history of COVID-19 pneumonia) -Repeat COVID-19 PCR negative. Status: Acute (2) CHF exacerbation: Increase Lasix to 40 mg every 8 hourly Status: Acute Qualifiers: Heart failure type: diastolic Qualified Code(s): I50.33 - Acute on chronic diastolic (congestive) heart failure (3) Afib: Paroxysmal atrial fibrillation currently back in sinus rhythm -Patient remained in sinus rhythm overnight and this morning on telemetry review -Metoprolol tartrate 25 mg every 8 hourly. Continue therapeutic Lovenox. -transition to lovenox to reduce intake Status: Acute Qualifiers: Atrial fibrillation type: unspecified chronic Qualified Code(s): I48.20 - Chronic atrial fibrillation, unspecified (4) Pulmonary embolism associated with COVID-19: -Currently on therapeutic Lovenox Status: Acute Additional A&P Information Possible pneumonia : Empirically being treated with broad-spectrum antibiotics Normocytic anemia Bilateral small pleural effusion Small pericardial effusion Thrombocytosis Elevated D-dimer Hypomagnesemia: Replaced Elevated liver enzymes Hypoalbuminemia Thank you for allowing me to participate in patient's care. Please feel free to call with questions or concerns. 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
[2020-12-25] MEDS: cholecalciferol (vitamin D3) 5,000 unit Tablet 5000 UNIT PO (10:25)
[2020-12-25 10:50] LABS: NT Pro B Type Natriuretic Pept 620 pg/mL (0-450)
--- NOTE | 2020-12-25 11:35 | PC.SOCIAL ---
Pg 2 IMM Explained to pt Pg 2 IMM. No questions voiced. Provided pt a copy. Signed, dated, & timed a copy & placed in chart.
[2020-12-25] MEDS: metoprolol tartrate 1 mg/1 mL SDV 5 mL 5 MG IV (11:50)
--- NOTE | 2020-12-25 12:42 | PC.NURSE ---
Patient has been resting in bed this shift on heated high flow. Patient has complained of shortness of breath with respirations in the 30's. HR was in 130's when was rounding. New orders were given.
--- NOTE | 2020-12-25 14:02 | P.PN_ITS ---
Subjective Subjective: Interval history: Patient's condition is about the same as yesterday. Still on high flow oxygen. Slightly tachypneic. Reports shortness of breath. Denies pain. No chills. No nausea or vomiting. Vitals/I&O/Wt Last Vital Signs Temp 99.4 F 12/25/20 09:15 Pulse 92 12/25/20 12:10 Resp 28 H 12/25/20 12:10 BP 141/73 12/25/20 12:10 Pulse Ox 94 12/25/20 12:10 12/24/20 12/25/20 12/25/20 22:59 06:59 14:59 Intake Total 1372.693 / 2158.573 100 / 2258.573 940 / 940 Output Total 250 / 450 1600 / 2050 1750 / 1750 Balance 1122.693 / 1708.573 -1500 / 208.573 -810 / -810 Weight last 48 hrs Weight 137.121 kg Physical Exam Narrative: EXAM NARRATIVE: The patient is awake alert oriented. Mild distress. Mood and affect are appropriate. Skin is warm and dry. Moist mucous membranes. Eyes PERRL, extraocular muscles are intact. Normal speech. Neck is supple. No JVD Decreased breath sounds bilaterally, tachypnea, tolerating BiPAP mask okay. No accessory muscle use. No crackles or wheezes. Heart S1, S2, regular Abdomen is obese, soft, nontender, bowel sounds are present Extremities bilateral 2+ pedal edema, no cyanosis, no calf tenderness bilaterally. Normal capillary refill. Neuro exam is nonfocal. Urinary Catheter Management^: Patel: Cath Placed During This Visit: yes Reason for Continuing Indwelling Catheter: Accurate Measurement of Urinary Output in Critically Ill Patients Urinary Catheter Date of Insertion: 12/23/20 Urinary Catheter Time of Insertion: 09:30 Data : 12/25/20 04:11 12/25/20 04:11 Micro: Microbiology 12/23/20 17:00 Blood Culture - Preliminary Blood NEGATIVE TO DATE 12/23/20 17:05 Blood Culture - Preliminary Blood NEGATIVE TO DATE 12/22/20 12:43 Blood Culture - Preliminary Blood Coagulase negativ staphylococc A&P Additional A&P Information 75-year-old female who was diagnosed with COVID-19 and received monoclonal antibodies mid-November who is presenting with worsening shortness of breath, fever, cough. Acute hypoxic respiratory failure secondary to below. Stable since yesterday. She is tolerating high flow better than the BiPAP. Repeat chest x-ray did not show any infiltrates or CHF. pleural effusion is described again today. We will repeat chest x-ray in the morning. He will tap the fluid if the amount has increased and is significant. Dr Cross will be back tomorrow. We will reassess her ABGs. Gram-positive bacteremia. Probably a contamination. Repeat cultures are ne gative. We will stop vancomycin today. Bilateral subsegmental PE after recent COVID-19 diagnosis. Continue Lovenox full dose. Recent COVID-19. Received monoclonal antibodies. I am not convinced that her symptoms are related to Covid 19 pneumonia. We will continue vitamins for now. Bilateral pleural effusions. Probably very small and improved with diuresis. Continue close monitoring. Continue furosemide. A. fib with RVR. Management per Dr Ybarra. Appreciate dr Malik's input! Continue management per her recommendations. Anemia. Stable. Monitor. Morbid obesity. CODE STATUS. Full code. The plan of care was discussed with the patient. She verbalized understanding and agreement. Critical care time spent on this encounter is 32 minutes. Attestations Medical Necessity Statement*: The patient is in critical condition in ICU requiring respiratory support and IV medications. 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
[2020-12-25] MEDS: amiodarone 200 mg Tablet 400 MG PO (17:05)
[2020-12-25] MEDS: ALPRAZolam 0.25 mg Tablet 0.125 MG PO (19:32)
[2020-12-26] VITALS (300 sets, daily range): BP systolic 92–148; BP diastolic 51–98; PULSE 66–149; RESP 15–42; TEMP 36.6–37.2; O2SAT 88–95
[2020-12-26] MEDS: metoprolol tartrate 25 mg Tablet PO ×2 (04:10→10:25)
[2020-12-26] MEDS: ALPRAZolam 0.25 mg Tablet 0.125 MG PO (04:19)
[2020-12-26] MEDS: FUROsemide 10 mg/mL SDV 4mL 40 MG IVP ×3 (05:37→21:41)
[2020-12-26] MEDS: famotidine 20 mg Tablet PO ×2 (05:37→17:23)
[2020-12-26 05:49] LABS: Basophils # 0.1 10^3/uL (0.0-0.1); Basophils % 0.3 %; Eosinophils # 0.1 10^3/uL (0.0-0.8); Eosinophils % 0.4 %; Hemoglobin 10.9 g/dL (11.5-15.3); Lymphocytes # 1.9 10^3/uL (0.8-4.8); Lymphocytes % 11.1 %; Mean Corpuscular HGB Conc 30.3 g/dL (30.0-36.0); Mean Corpuscular Hemoglobin 27.1 pg (28.0-34.0); Mean Corpuscular Volume 89.6 fL (81-99); Monocytes # 1.8 10^3/uL (0.2-0.9); Monocytes % 10.4 %; Neutrophils # 13.09 10^3/uL (1.8-7.7); Nucleated Red Blood Cells % 0 %; Platelet Count 489 10^3/cmm (130-400); Red Blood Count 4.02 10^6/uL (4.1-5.3); Red Cell Distribution Width 13.7 % (12.1-15.1)
--- NOTE | 2020-12-26 06:00 | XR_ITS ---
WS: [id number] Exam: XR chest 1V portable [id number] Date/Time of Exam: 12/26/2020 6:00 AM Reason For Exam: resp failure, pleural effusions Comparison 12/25/2020. Bibasal infiltrates show little change since prior study. The heart is enlarged but unchanged in size . Bilateral pleural effusions without change. The lungs are fully expanded. The mediastinum is not wi dened. XR/XR chest 1V portable [id number] IMPRESSION: 1. Chest radiograph showing very little change since the last exam.
[2020-12-26 06:14] LABS: NT Pro B Type Natriuretic Pept 977 pg/mL (0-450); Procalcitonin 0.18 ng/mL (0-0.5)
[2020-12-26 06:17] LABS: D Dimer 4.23 ug/mIFEU (0-0.59)
[2020-12-26 06:25] LABS: Albumin Level 2.3 g/dL (3.5-5.2); Anion Gap 14.4 (5-19); Blood Urea Nitrogen 18 mg/dL (8-23); C Reactive Protein 200.1 mg/L (0.0-4.9); Calcium 8.5 mg/dL (8.5-10.5); Carbon Dioxide 30 mmol/L (22-29); Chloride 98 mmol/L (98-107); Glucose 126 mg/dL (65-115); Magnesium 1.8 mg/dL (1.7-2.3); Phosphorus 3.1 mg/dL (2.5-4.5); Potassium 3.4 mmol/L (3.5-5.1); Sodium 139 mmol/L (136-145)
[2020-12-26] MEDS: ipratropium-albuterol 3 mL Neb INHALATION ×5 (06:48→23:32)
[2020-12-26] MEDS: morphine 4 mg/mL SDV 1 mL 2 MG IVP (07:22)
[2020-12-26] MEDS: amiodarone 200 mg Tablet 400 MG PO ×3 (07:47→23:07)
--- NOTE | 2020-12-26 09:31 | PM.PN ---
Subjective Subjective: Interval history: She remains the same. Currently on HFNC FiO2 45%, CXR with no change. -Telemetry showing A. fib with RVR. LOS -1L Medications: Reviewed: Yes Medication Review Details: Current Medications Acetaminophen (Acetaminophen 325 Mg Tablet) 650 mg PO Q6H PRN PRN Reason: MILD PAIN Last Admin: 12/25/20 00:40 Dose: 650 mg Documented by: Albuterol Sulfate (Albuterol 8 Gm Mdi) 2 puff INHALATION Q4H.RESPIRATORY PRN PRN Reason: SHORTNESS OF BREATH Last Admin: 12/23/20 23:14 Dose: 2 puff Documented by: Albuterol/Ipratropium (Ipratropium-Albuterol 3 Ml Neb) 3 ml INHALATION Q4H PRN PRN Reason: SHORTNESS OF BREATH Last Admin: 12/26/20 06:48 Dose: 3 ml Documented by: Alprazolam (Alprazolam 0.25 Mg Tablet) 0.125 mg PO TID PRN PRN Reason: ANXIETY Last Admin: 12/26/20 04:19 Dose: 0.125 mg Documented by: Amiodarone HCl (Amiodarone 200 Mg Tablet) 400 mg PO Q8H [facility] Last Admin: 12/26/20 07:47 Dose: 400 mg Documented by: Doxycycline Monohydrate (Doxycycline 100 Mg Tablet) 100 mg PO BID [facility]; Protocol Last Admin: 12/25/20 17:05 Dose: 100 mg Documented by: Enoxaparin Sodium 100 mg/ (Enoxaparin Sodium 30 mg) 130 mg SUBCUT Q12H [facility] Last Admin: 12/26/20 05:37 Dose: 130 mg Documented by: Famotidine (Famotidine 20 Mg Tablet) 20 mg PO Q12H [facility] Last Admin: 12/26/20 05:37 Dose: 20 mg Documented by: Furosemide (Furosemide 10 Mg/Ml Sdv 4ml) 40 mg IVP Q8H [facility] Last Admin: 12/26/20 05:37 Dose: 40 mg Documented by: Guaifenesin/Dextromethorphan (Guaifenesin-Dextromethorphan Udc 10 Ml) 10 ml PO Q4H PRN PRN Reason: COUGH Last Admin: 12/25/20 19:31 Dose: 10 ml Documented by: Imipenem/Cilastatin Sodium 500 (mg/ Sodium Chloride) 100 mls @ 200 mls/hr IV Q6H [facility] Last Admin: 12/26/20 07:57 Dose: 200 mls/hr Documented by: Dexmedetomidine HCl 400 mcg/ (Sodium Chloride) 104 mls @ 0 mls/hr IV .Q0M [facility]; Protocol Last Titration: 12/24/20 15:30 Dose: Infused Documented by: Diltiazem HCl 125 mg/ Sodium (Chloride) 125 mls @ 0 mls/hr IV .Q0M [facility]; Protocol Vancomycin/PEG/NADA/Lysine/Water (Vancocin) 1,500 mg in 300 mls @ 200 mls/hr IV Q12H [facility] Metoprolol Tartrate (Metoprolol Tartrate 25 Mg Tablet) 25 mg PO Q6H [facility] Last Admin: 12/26/20 04:10 Dose: 25 mg Documented by: Morphine Sulfate (Morphine 4 Mg/Ml Sdv 1 Ml) 2 mg IVP Q4H PRN PRN Reason: SEVERE PAIN Last Admin: 12/26/20 07:22 Dose: 2 mg Documented by: Ondansetron HCl (Ondansetron 2 Mg/Ml Sdv 2 Ml) 4 mg IVP Q6H PRN PRN Reason: NAUSEA AND VOMITING Potassium Chloride (Potassium Chloride Oral Liq 20 Meq/15 Ml Udc) 40 meq PO DAILY [facility] Thiamine Mononitrate (Thiamine 100 Mg Tablet) 100 mg PO DAILY [facility] Last Admin: 12/25/20 08:53 Dose: 100 mg Documented by: Vitamin D (Cholecalciferol (Vitamin D3) 5,000 Unit Tablet) 5,000 unit PO DAILY [facility] Last Admin: 12/25/20 10:25 Dose: 5,000 unit Documented by: Zinc Gluconate (Zinc Gluconate 50 Mg Tablet) 50 mg PO DAILY [facility] Last Admin: 12/25/20 08:53 Dose: 50 mg Documented by: Vitals/I&O/Wt Last Vital Signs Temp 98.9 F 12/26/20 08:00 Pulse 134 H 12/26/20 08:00 Resp 32 H 12/26/20 08:00 BP 109/88 12/26/20 08:00 Pulse Ox 93 12/26/20 08:00 12/25/20 12/26/20 12/26/20 22:59 06:59 14:59 Intake Total 558 / 1498 100 / 1598 Output Total 2400 / 4150 450 / 4600 1400 / 1400 Balance -1842 / -2652 -350 / -3002 -1400 / -1400 Weight last 48 hrs Weight 283 lb Physical Exam Narrative: EXAM NARRATIVE: GENERAL: Obese woman lying in bed in some respiratory distress. HEENT: Pupils equal round reactive to light. No pallor or icterus. NECK: Short thick neck, unable to appreciate JVD. CARDIOVASCULAR SYSTEM: S1-S2 regular. no S3 or S4 present. No murmur rubs or gallops. RESPIRATORY SYSTEM: Coarse bilateral breath sounds absent at the bases. +rhonchi. ABDOMEN: Soft, nontender and nondistended. Normal bowel sounds present. EXTREMITIES: No cyanosis or clubbing. 2+ bilateral edema. No signs of chronic venous insufficiency. SPECIAL NEEDS CAREGIVER: Patient is alert oriented ?3. No focal neurological deficits. SKIN: Normal turgor and temperature. Urinary Catheter Management^: Patel: Cath Placed During This Visit: yes Reason for Continuing Indwelling Catheter: Accurate Measurement of Urinary Output in Critically Ill Patients Urinary Catheter Date of Insertion: 12/23/20 Urinary Catheter Time of Insertion: 09:30 Data : 12/26/20 05:13 12/26/20 05:13 A&P Assessment and plan (1) Acute respiratory failure with hypoxia: She is currently on oxygen via HFNC -likely multifactorial in setting of decompensation of heart failure with preserved ejection fraction, pneumonia (possible bacterial pneumonia with recent history of COVID-19 pneumonia) -Repeat COVID-19 PCR negative. Status: Acute (2) CHF exacerbation: Increased Lasix to 40 mg every 8 hourly, good UP so far. continue. Status: Acute Qualifiers: Heart failure type: diastolic Qualified Code(s): I50.33 - Acute on chronic diastolic (congestive) heart failure (3) Afib: Paroxysmal atrial fibrillation, currently in RVR with rates in 130'-140's -Metoprolol tartrate 25 mg every 6 hourly. Continue therapeutic Lovenox. -increase amiodarone to 400 mg PO TID. -May have to add digoxin. Status: Acute Qualifiers: Atrial fibrillation type: unspecified chronic Qualified Code(s): I48.20 - Chronic atrial fibrillation, unspecified (4) Pulmonary embolism associated with COVID-19: -Currently on therapeutic Lovenox Status: Acute Additional A&P Information Pneumonia : On antibiotics as per primary team. Normocytic anemia Bilateral small pleural effusion Small pericardial effusion Thrombocytosis Elevated D-dimer Hypomagnesemia: Replaced Elevated liver enzymes: f/u CMP in am Hypoalbuminemia Thank you for allowing me to participate in patient's care. Please feel free to call with questions or concerns. Attestations Medical Necessity Statement*: Remains critically ill in ICU with respiratory failure Time Spent in Patient Care: Greater than 35 minutes (>than 50% of time spent in counselling and/or direct pt care on unit). Critical Care Time: Critical Care Time (min): 30 Coding Level of Care Code Acute Clinic Licensed Practical Nurse for [facility] Fwd Diagnoses Acute respiratory failure with hypoxia J96.01 CHF exacerbation I50.33 Heart failure type: diastolic Afib I48.20 Atrial fibrillation type: unspecified chronic Pulmonary embolism associated with COVID-19 U07.1; I26.99
[2020-12-26] MEDS: vancomycin 1,500 MG/300 ML PIGGYBACK 200 MG IV ×2 (09:37→20:30)
--- NOTE | 2020-12-26 09:37 | PC.CHAP ---
Pastoral Care Encounter/Spiritual Assessment Type of Contact [] Declined mold maker helper visit [] Patient/Family/Request visit [] Outpatient visit [] Follow-up visit [] Physician referral [] Code/Alert [x] Routine visit [] Staff referral [] Actively dying [] Patient sleeping [] Family support [] [] Out of room [] Palliative care [] [] Receiving care in room [] Pre-surgical visit [] Trauma [] Long length of stay [x] ICU visit [] Other: Relational/Emotional Strength [] Patient feels connected with others/family/visitors/staff [] Distress [] Loneliness/isolation [] Abandonment Spirituality of Patient [] Person of Tonya [] Attends Islam of their Tonya [] Believes in Prayer [] Reads Bible or Latter-Day materials [] There are Spiritual issues to be addressed [employer] B[employer]er Interventions [x] Prayer [] Active listening [] Non-anxious presence [] Spiritual/emotional support [] Crisis/trauma care [] Spiritual counseling [] Bereavement support [] Provided bereavement packet [] Provided Bible/devotional materials [] Provided toy/stuffed animal, coloring book to patient or family member [] Provided Communion [] Anointing/[place] [] Salvation [x] Completed spiritual assessment [] Other: Impact on Illness or Injury [] Angry [] Fearful [] Anxious [] Often cries [] Exhaustion [] Unable to work [] Unable to attend latter-day [] Unable to walk/stand [] Unable to read [] Unable to drive [] Unable to eat/drink [] Unable to sleep [] Unable to be with family [] Patient intubated [] Other: Summary Time spent with patient
[2020-12-26] MEDS: potassium chloride oral liq 20 mEq/15 mL UDC 40 MEQ PO (09:50)
[2020-12-26] MEDS: zinc gluconate 50 mg Tablet PO (09:50)
[2020-12-26] MEDS: doxycycline 100 mg Tablet PO ×2 (09:50→17:22)
[2020-12-26] MEDS: thiamine 100 mg Tablet PO (09:50)
[2020-12-26] MEDS: cholecalciferol (vitamin D3) 5,000 unit Tablet 5000 UNIT PO (09:50)
--- NOTE | 2020-12-26 12:26 | P.PN_ITS ---
Subjective Subjective: Interval history: This morning patient was examined, she tells me that she is just not feeling well, she is feeling more short of breath, her heart rates in the 130s to 140s, atrial fibrillation, no fevers overnight, no chest pain, denies lightheadedness, no dizziness, no cough, her urine output for the last 24 hours is over 4 L Medications: Reviewed: Yes Medication Review Details: Current Medications Acetaminophen (Acetaminophen 325 Mg Tablet) 650 mg PO Q6H PRN PRN Reason: MILD PAIN Last Admin: 12/25/20 00:40 Dose: 650 mg Documented by: Albuterol Sulfate (Albuterol 8 Gm Mdi) 2 puff INHALATION Q4H.RESPIRATORY PRN PRN Reason: SHORTNESS OF BREATH Last Admin: 12/23/20 23:14 Dose: 2 puff Documented by: Albuterol/Ipratropium (Ipratropium-Albuterol 3 Ml Neb) 3 ml INHALATION Q4H PRN PRN Reason: SHORTNESS OF BREATH Last Admin: 12/26/20 06:48 Dose: 3 ml Documented by: Alprazolam (Alprazolam 0.25 Mg Tablet) 0.125 mg PO TID PRN PRN Reason: ANXIETY Last Admin: 12/26/20 04:19 Dose: 0.125 mg Documented by: Amiodarone HCl (Amiodarone 200 Mg Tablet) 400 mg PO Q8H [facility] Last Admin: 12/26/20 07:47 Dose: 400 mg Documented by: Doxycycline Monohydrate (Doxycycline 100 Mg Tablet) 100 mg PO BID [facility]; Protocol Last Admin: 12/25/20 17:05 Dose: 100 mg Documented by: Enoxaparin Sodium 100 mg/ (Enoxaparin Sodium 30 mg) 130 mg SUBCUT Q12H [facility] Last Admin: 12/26/20 05:37 Dose: 130 mg Documented by: Famotidine (Famotidine 20 Mg Tablet) 20 mg PO Q12H [facility] Last Admin: 12/26/20 05:37 Dose: 20 mg Documented by: Furosemide (Furosemide 10 Mg/Ml Sdv 4ml) 40 mg IVP Q8H [facility] Last Admin: 12/26/20 05:37 Dose: 40 mg Documented by: Guaifenesin/Dextromethorphan (Guaifenesin-Dextromethorphan Udc 10 Ml) 10 ml PO Q4H PRN PRN Reason: COUGH Last Admin: 12/25/20 19:31 Dose: 10 ml Documented by: Imipenem/Cilastatin Sodium 500 (mg/ Sodium Chloride) 100 mls @ 200 mls/hr IV Q6H [facility] Last Admin: 12/26/20 07:57 Dose: 200 mls/hr Documented by: Dexmedetomidine HCl 400 mcg/ (Sodium Chloride) 104 mls @ 0 mls/hr IV .Q0M [facility]; Protocol Last Titration: 12/24/20 15:30 Dose: Infused Documented by: Diltiazem HCl 125 mg/ Sodium (Chloride) 125 mls @ 0 mls/hr IV .Q0M [facility]; Protocol Vancomycin/PEG/NADA/Lysine/Water (Vancocin) 1,500 mg in 300 mls @ 200 mls/hr IV Q12H [facility] Metoprolol Tartrate (Metoprolol Tartrate 25 Mg Tablet) 25 mg PO Q6H [facility] Last Admin: 12/26/20 04:10 Dose: 25 mg Documented by: Morphine Sulfate (Morphine 4 Mg/Ml Sdv 1 Ml) 2 mg IVP Q4H PRN PRN Reason: SEVERE PAIN Last Admin: 12/26/20 07:22 Dose: 2 mg Documented by: Ondansetron HCl (Ondansetron 2 Mg/Ml Sdv 2 Ml) 4 mg IVP Q6H PRN PRN Reason: NAUSEA AND VOMITING Potassium Chloride (Potassium Chloride Oral Liq 20 Meq/15 Ml Udc) 40 meq PO DAILY [facility] Thiamine Mononitrate (Thiamine 100 Mg Tablet) 100 mg PO DAILY [facility] Last Admin: 12/25/20 08:53 Dose: 100 mg Documented by: Vitamin D (Cholecalciferol (Vitamin D3) 5,000 Unit Tablet) 5,000 unit PO DAILY [facility] Last Admin: 12/25/20 10:25 Dose: 5,000 unit Documented by: Zinc Gluconate (Zinc Gluconate 50 Mg Tablet) 50 mg PO DAILY [facility] Last Admin: 12/25/20 08:53 Dose: 50 mg Documented by: Vitals/I&O/Wt Last Vital Signs Temp 98.9 F 12/26/20 08:00 Pulse 110 H 12/26/20 11:13 Resp 22 H 12/26/20 11:13 BP 98/77 12/26/20 10:10 Pulse Ox 93 12/26/20 11:13 12/25/20 12/26/20 12/26/20 22:59 06:59 14:59 Intake Total 558 / 1498 100 / 1598 107.833 / 107.833 Output Total 2400 / 4150 450 / 4600 1400 / 1400 Balance -1842 / -2652 -350 / -3002 -1292.167 / -1292.167 Weight last 48 hrs Weight 134.037 kg Weight 128.367 kg Physical Exam Const: COMMON NORMALS: no acute distress and patient oriented x3 HENMT: COMMON NORMALS: normocephalic HEAD & SCALP: normocephalic Neck/C-Spine: COMMON NORMALS: no JVD Resp: COMMON NORMALS: normal respiratory effort, No retractions and No use of accessory muscles EFFORT & INSPECTION: Yes tachypneic and Yes retractions AUSCULTATION: crackles Cardio: COMMON NORMALS: no JVD, regular rate, regular rhythm, S1 normal heart sound present and S2 normal heart sound present RATE: regular rate RHYTHM: regular rhythm HEART SOUNDS: S1 normal heart sound present and S2 normal heart sound present GI: COMMON NORMALS: Normal to inspection, nondistended, normoactive bowel sounds present, Soft to palpation, non-tender, No hepatosplenomegaly present, no masses and no bruits PALPATION: Yes Soft to palpation and Yes No hepatosplenomegaly present Extremity: COMMON NORMALS: capillary refill normal, no clubbing, cyanosis or edema, no calf tenderness and no pedal edema Neuro: COMMON NORMALS: patient oriented x3 Psych: COMMON NORMALS: mental status grossly normal Urinary Catheter Management^: Patel: Cath Placed During This Visit: yes Reason for Continuing Indwelling Catheter: Accurate Measurement of Urinary Output in Critically Ill Patients Urinary Catheter Date of Insertion: 12/23/20 Urinary Catheter Time of Insertion: 09:30 Data : 12/26/20 05:13 12/26/20 05:13 Micro: Microbiology 12/26/20 09:22 Blood Culture - Preliminary Blood SPECIMEN COLLECTED 12/26/20 09:30 Blood Culture - Preliminary Blood SPECIMEN COLLECTED A&P Assessment and plan (1) Acute respiratory failure with hypoxia: Secondary to bilateral subsegmental pulmonary emboli, recent diagnosis of COVID-19 status post monoclonal antibody infusion, possible underlying pneumonia, diastolic CHF, A. fib with RVR Plan: -Continue to monitor in ICU -Currently on high flow, 35 L, 45% FiO2 -We will try to achieve better heart rate control -Continue diuresis Lasix 40 mg IV twice daily, potassium replacement -We will broaden antibiotic coverage to vancomycin, Primaxin -If patient's respiratory status worsens can consider starting her on Decadron, remdesivir, convalescent plasma -Repeat blood cultures, sputum cultures, urine bacterial antigens -Continue therapeutic dose Lovenox, monitor hemoglobin -Monitor respiratory status closely -Full code -Lovenox for DVT prophylaxis Status: Acute (2) Pulmonary embolism associated with COVID-19: Status: Acute (3) CHF exacerbation: Status: Acute Qualifiers: Heart failure type: diastolic Qualified Code(s): I50.33 - Acute on chronic diastolic (congestive) heart failure (4) Atrial fibrillation with RVR: -On metoprolol 25 every 6h -Amiodarone 400 mg every 8h -As heart rates were 130s to 140s this morning, and patient was short of breath, she was started on Cardizem drip -Lovenox for DVT prophylaxis -Appreciate cardiology's input Status: Acute (5) Anemia: Hemoglobin 10.9, baseline is unknown Monitor hemoglobin as she is on full dose Lovenox Status: Acute Additional A&P Information 75-year-old female who was diagnosed with COVID-19 and received monoclonal antibodies mid-November who is presenting with worsening shortness of breath, fever, cough. Gram-positive bacteremia. Probably a contamination. Repeat cultures are negative. Bilateral subsegmental PE after recent COVID-19 diagnosis. Continue Lovenox full dose. Recent COVID-19. Received monoclonal antibodies. If patient clinically does not improve after better rate control and diuresis, will consider treatment for COVID-19 Bilateral pleural effusions. Probably very small and improved with diuresis. Continue close monitoring. Continue furosemide. A. fib with RVR Morbid obesity. CODE STATUS. Full code. The plan of care was discussed with the patient. She verbalized understanding and agreement. Attestations Medical Necessity Statement*: Patient requires hospitalization for acute respiratory failure secondary to bilateral pulmonary emboli, diastolic CHF, possible pneumonia, A. fib with RVR, critical care time spent over 45 minutes Coding Level of Care Code Acute Printed Circuit Designer for [facility] Diagnoses Acute respiratory failure with hypoxia J96.01 Pulmonary embolism associated with COVID-19 U07.1; I26.99 CHF exacerbation I50.33 Heart failure type: diastolic Atrial fibrillation with RVR I48.91 Anemia D64.9
--- NOTE | 2020-12-26 14:01 | PC.NURSE ---
Upon morning shift change, patient was reporting that she as unable to catch her breath and was very anxious. Otherwise asymptomatic. Nurse administered 2 mg prn morphine for air hunger. Patient responded positively. No longer anxious or reporting difficulty breathing.
--- NOTE | 2020-12-26 14:08 | PC.NURSE ---
Nurse assisted patient up to a chair and explained benefits of sitting up. Encouraged at least a couple hours a day. Nurse changed bed linens while pt was up.
[2020-12-26] MEDS: morphine 4 mg/mL SDV 1 mL 1 MG IVP (14:56)
[2020-12-26] MEDS: metoprolol tartrate 50 mg Tablet PO (17:22)
--- NOTE | 2020-12-26 19:02 | P.PN_ITS ---
Subjective Subjective: Interval history: - Examined patient today at bedside -Patient heart rate still in 130-140s -Cardiology increased amiodarone to 400 mg p.o. 3 times daily and metoprolol 25 mg every 6 hours and considering to add digoxin -Patient as needed moderate respiratory distress and is on 45% FiO2 and 35 L high flow oxygen -Bedside ultrasound revealed mild bilateral pleural effusions right appeared more than left but it difficult pockets to tap. -Reviewed labs and imaging Medications: Reviewed: Yes Medication Review Details: Current Medications Acetaminophen (Acetaminophen 325 Mg Tablet) 650 mg PO Q6H PRN PRN Reason: MILD PAIN Last Admin: 12/25/20 00:40 Dose: 650 mg Documented by: Albuterol Sulfate (Albuterol 8 Gm Mdi) 2 puff INHALATION Q4H.RESPIRATORY PRN PRN Reason: SHORTNESS OF BREATH Last Admin: 12/23/20 23:14 Dose: 2 puff Documented by: Albuterol/Ipratropium (Ipratropium-Albuterol 3 Ml Neb) 3 ml INHALATION Q4H PRN PRN Reason: SHORTNESS OF BREATH Last Admin: 12/26/20 06:48 Dose: 3 ml Documented by: Alprazolam (Alprazolam 0.25 Mg Tablet) 0.125 mg PO TID PRN PRN Reason: ANXIETY Last Admin: 12/26/20 04:19 Dose: 0.125 mg Documented by: Amiodarone HCl (Amiodarone 200 Mg Tablet) 400 mg PO Q8H [facility] Last Admin: 12/26/20 07:47 Dose: 400 mg Documented by: Doxycycline Monohydrate (Doxycycline 100 Mg Tablet) 100 mg PO BID [facility]; Protocol Last Admin: 12/25/20 17:05 Dose: 100 mg Documented by: Enoxaparin Sodium 100 mg/ (Enoxaparin Sodium 30 mg) 130 mg SUBCUT Q12H [facility] Last Admin: 12/26/20 05:37 Dose: 130 mg Documented by: Famotidine (Famotidine 20 Mg Tablet) 20 mg PO Q12H [facility] Last Admin: 12/26/20 05:37 Dose: 20 mg Documented by: Furosemide (Furosemide 10 Mg/Ml Sdv 4ml) 40 mg IVP Q8H [facility] Last Admin: 12/26/20 05:37 Dose: 40 mg Documented by: Guaifenesin/Dextromethorphan (Guaifenesin-Dextromethorphan Udc 10 Ml) 10 ml PO Q4H PRN PRN Reason: COUGH Last Admin: 12/25/20 19:31 Dose: 10 ml Documented by: Imipenem/Cilastatin Sodium 500 (mg/ Sodium Chloride) 100 mls @ 200 mls/hr IV Q6H [facility] Last Admin: 12/26/20 07:57 Dose: 200 mls/hr Documented by: Dexmedetomidine HCl 400 mcg/ (Sodium Chloride) 104 mls @ 0 mls/hr IV .Q0M [facility]; Protocol Last Titration: 12/24/20 15:30 Dose: Infused Documented by: Diltiazem HCl 125 mg/ Sodium (Chloride) 125 mls @ 0 mls/hr IV .Q0M [facility]; Protocol Vancomycin/PEG/NADA/Lysine/Water (Vancocin) 1,500 mg in 300 mls @ 200 mls/hr IV Q12H [facility] Metoprolol Tartrate (Metoprolol Tartrate 25 Mg Tablet) 25 mg PO Q6H [facility] Last Admin: 12/26/20 04:10 Dose: 25 mg Documented by: Morphine Sulfate (Morphine 4 Mg/Ml Sdv 1 Ml) 2 mg IVP Q4H PRN PRN Reason: SEVERE PAIN Last Admin: 12/26/20 07:22 Dose: 2 mg Documented by: Ondansetron HCl (Ondansetron 2 Mg/Ml Sdv 2 Ml) 4 mg IVP Q6H PRN PRN Reason: NAUSEA AND VOMITING Potassium Chloride (Potassium Chloride Oral Liq 20 Meq/15 Ml Udc) 40 meq PO DAILY [facility] Thiamine Mononitrate (Thiamine 100 Mg Tablet) 100 mg PO DAILY [facility] Last Admin: 12/25/20 08:53 Dose: 100 mg Documented by: Vitamin D (Cholecalciferol (Vitamin D3) 5,000 Unit Tablet) 5,000 unit PO DAILY [facility] Last Admin: 12/25/20 10:25 Dose: 5,000 unit Documented by: Zinc Gluconate (Zinc Gluconate 50 Mg Tablet) 50 mg PO DAILY [facility] Last Admin: 12/25/20 08:53 Dose: 50 mg Documented by: Vitals/I&O/Wt Last Vital Signs Temp 98.1 F 12/26/20 16:00 Pulse 91 12/26/20 18:00 Resp 26 H 12/26/20 18:00 BP 121/69 12/26/20 18:00 Pulse Ox 91 12/26/20 18:00 12/26/20 12/26/20 12/26/20 06:59 14:59 22:59 Intake Total 100 / 1598 407.833 / 407.833 100 / 507.833 Output Total 450 / 4600 1750 / 1750 850 / 2600 Balance -350 / -3002 -1342.167 / -1342.167 -750 / -2092.167 Weight last 48 hrs Weight 295 lb 8 oz Weight 283 lb Physical Exam Narrative: EXAM NARRATIVE: General: alert, in mild respiratory distress HEENT: conj clear, EOMI, PERRL, mmm, Neck: supple, no meningismus Heme: no cervical LAP Pulmonary: Bilateral lower lobe crackles Cardiovascular: rrr, nl s1s2, no mrg Abdomen: soft, nt, nd, no r/g, bs+ Extremities: pulses +, 2+ pedal edema, no c/c : no CVA tenderness Skin: intact, no rash MSK: no back or neck pain Neurologic: grossly intact Urinary Catheter Management^: Patel: Cath Placed During This Visit: yes Reason for Continuing Indwelling Catheter: Accurate Measurement of Urinary Output in Critically Ill Patients Urinary Catheter Date of Insertion: 12/23/20 Urinary Catheter Time of Insertion: 09:30 Data : 12/26/20 05:13 12/26/20 05:13 Micro: Microbiology 12/26/20 10:30 MRSA Culture - Final Nose 12/26/20 10:30 Bacterial Antigens - Final Urine,Voided 12/26/20 09:22 Blood Culture - Preliminary Blood SPECIMEN COLLECTED 12/26/20 09:30 Blood Culture - Preliminary Blood SPECIMEN COLLECTED A&P Assessment and plan (1) Acute respiratory failure with hypoxia: Status: Acute (2) Pulmonary embolism associated with COVID-19: Status: Acute (3) Afib: Status: Acute Qualifiers: Atrial fibrillation type: unspecified chronic Qualified Code(s): I48.20 - Chronic atrial fibrillation, unspecified # Acute hypoxic respiratory failure due to bilateral PE and patient with recent COVID-19 infection last month #New onset A. fib with RVR #Bilateral pleural effusions likely due to reduced cardiac function in view of A. fib RVR versus pneumonia -Currently patient is requiring 45% FiO2 on 35 L high flow nasal cannula -CTPA 12/22/2020: On admission: Small bilateral lower lobe pulmonary embolus extending from proximal lobar branches to the segmental branches. -Atrial fibrillation with still RVR-patient is being followed by cardiology and is currently on metoprolol 25 every 6 hours and increased amiodarone to 400 p.o. 3 times daily and considering to add digoxin -Currently on Lovenox for PE and A. fib -Bedside ultrasound revealed bilateral pleural effusions right greater than left but no good pocket to tap -Good urine output with Lasix 40 mg every 8 hours; -3 L last 24 hours; monitor electrolytes and replenish -Echo 12/23/2020: Reported as technically very difficult study with normal LV size and systolic function with EF 70%. Dilated IVC. Recommended repeat echo with contrast once patient heart rate is better controlled. -Broaden antibiotics to vancomycin, imipenem and doxycycline to cover atypicals I feel patient hypoxic and hypercapnic respiratory failure is secondary to bilateral pleural effusions, unfortunately not a good window to tap, requires better heart rate rate control and diuresis to reduce fluid overload and improve her respiration. Patient being afebrile, low procalcitonin and improving white count suggestive if at all there is any component of pneumonia is better covered with antibiotic coverage. CT evidence of bilateral subsegmental PE is being treated with Lovenox does not appear to be major contributor for her worsening respiratory status. Recommendations conveyed to RN, hospitalist covering the patient Attestations Medical Necessity Statement*: Patient needs close monitoring in ICU for her worsening respiratory distress with high flow nasal cannula, aggressive diuresis and better heart rate control for her A. fib with RVR Time Spent in Patient Care: (>than 50% of time spent in counselling and/or direct pt care on unit) . 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
[2020-12-27] VITALS (288 sets, daily range): BP systolic 94–138; BP diastolic 47–78; PULSE 69–130; RESP 11–40; TEMP 37.1–37.6; O2SAT 80–99
[2020-12-27] MEDS: ipratropium-albuterol 3 mL Neb INHALATION ×4 (03:07→20:33)
[2020-12-27 04:40] LABS: ABG PCO2 47.3 mmHg (35-45); ABG PH Result 7.49 (7.35-7.45); Arterial Blood Gas Hematocrit 30.7 % (37-47); Base Excess ABG 11.2 mmol/L (-2.0-2.0); Blood Gas Sample Site Brachial, right; Blood Gas Sample Type Arterial; HCO3 ABG 35.9 mmol/L (22-26); PO2 ABG 58.5 mmHg (80.0-100.0)
[2020-12-27] MEDS: FUROsemide 10 mg/mL SDV 4mL 40 MG IVP (05:30)
[2020-12-27] MEDS: famotidine 20 mg Tablet PO ×2 (05:30→17:56)
[2020-12-27 05:35] LABS: Basophils # 0.1 10^3/uL (0.0-0.1); Basophils % 0.4 %; Eosinophils # 0.2 10^3/uL (0.0-0.8); Eosinophils % 0.9 %; Hematocrit 34.9 % (37.0-47.0); Hemoglobin 10.5 g/dL (11.5-15.3); Lymphocytes # 2.4 10^3/uL (0.8-4.8); Lymphocytes % 14.3 %; Mean Corpuscular HGB Conc 30.1 g/dL (30.0-36.0); Mean Corpuscular Hemoglobin 27.3 pg (28.0-34.0); Mean Corpuscular Volume 90.6 fL (81-99); Monocytes # 1.6 10^3/uL (0.2-0.9); Monocytes % 9.6 %; Neutrophils # 12.58 10^3/uL (1.8-7.7); Neutrophils % 73.8 %; Nucleated Red Blood Cells % 0 %; Platelet Count 483 10^3/cmm (130-400); Red Blood Count 3.85 10^6/uL (4.1-5.3); Red Cell Distribution Width 13.8 % (12.1-15.1); White Blood Count 17.1 10^3/uL (4.0-10.0)
[2020-12-27 06:10] LABS: Alanine Aminotransferase 34 U/L (0-33); Albumin Level 2.5 g/dL (3.5-5.2); Alkaline Phosphatase 96 IU/L (35-105); Anion Gap 12.3 (5-19); Aspartate Amino Transferase 28 U/L (0-32); Blood Urea Nitrogen 21 mg/dL (8-23); C Reactive Protein 160.1 mg/L (0.0-4.9); Calcium 8.6 mg/dL (8.5-10.5); Carbon Dioxide 33 mmol/L (22-29); Chloride 99 mmol/L (98-107); Globulin 3.7 g/dL (1.3-4.6); Glucose 117 mg/dL (65-115); Magnesium 1.7 mg/dL (1.7-2.3); Osmolality Calculated 296 mOsm/kg (285-295); Phosphorus 3.5 mg/dL (2.5-4.5); Potassium 3.3 mmol/L (3.5-5.1); Sodium 141 mmol/L (136-145); Total Bilirubin 0.4 mg/dL (0.15-1.2); Total Protein 6.2 g/dL (6.6-8.7)
[2020-12-27 06:50] LABS: NT Pro B Type Natriuretic Pept 849 pg/mL (0-450)
--- NOTE | 2020-12-27 07:00 | XR_ITS ---
WS: [id number] Exam: XR chest 1V portable [id number] Date/Time of Exam: 12/27/2020 7:00 AM Reason For Exam: sob Comparison 12/26/2020. Right basal infiltrate and pleural effusion slightly improved since prior study. Left lower lobe infi ltrate is unchanged. Small left pleural effusion. The heart is enlarged but unchanged in size. The kane ngs remain fully expanded. XR/XR chest 1V portable [id number] IMPRESSION: 1. Right basal infiltrate and pleural effusion show minimal improvement. No oth er significant change.
[2020-12-27] MEDS: acetaZOLAMIDE 250 mg Tablet PO ×2 (08:58→20:21)
[2020-12-27] MEDS: amiodarone 200 mg Tablet 400 MG PO ×3 (08:58→22:58)
[2020-12-27] MEDS: doxycycline 100 mg Tablet PO (08:59)
[2020-12-27] MEDS: zinc gluconate 50 mg Tablet PO (08:59)
[2020-12-27] MEDS: metoprolol tartrate 50 mg Tablet PO ×2 (08:59→17:55)
[2020-12-27] MEDS: lidocaine 1% 5 ML in potassium chloride premix 100 ML 25 ML IV (08:59)
[2020-12-27] MEDS: thiamine 100 mg Tablet PO (08:59)
[2020-12-27] MEDS: potassium chloride oral liq 20 mEq/15 mL UDC 40 MEQ PO (09:00)
--- NOTE | 2020-12-27 09:32 | PC.CHAP ---
Pastoral Care Encounter/Spiritual Assessment Type of Contact [] Declined program officer visit [] Patient/Family/Request visit [] Outpatient visit [] Follow-up visit [] Physician referral [] Code/Alert [x] Routine visit [] Staff referral [] Actively dying [] Patient sleeping [] Family support [] [] Out of room [] Palliative care [] [] Receiving care in room [] Pre-surgical visit [] Trauma [] Long length of stay [x] ICU visit [] Other: Relational/Emotional Strength [] Patient feels connected with others/family/visitors/staff [] Distress [] Loneliness/isolation [] Abandonment Spirituality of Patient [x] Person of Tonya [] Attends Lutheran of their Tonya [] Believes in Prayer [] Reads Bible or Baptism materials [] There are Spiritual issues to be addressed 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 Interventions [x] Prayer [x] Active listening [x] Non-anxious presence [x] Spiritual/emotional support [] Crisis/trauma care [] Spiritual counseling [] Bereavement support [] Provided bereavement packet [] Provided Bible/devotional materials [] Provided toy/stuffed animal, coloring book to patient or family member [] Provided Communion [] Anointing/Amalia [] Salvation [x] Completed spiritual assessment [] Other: Impact on Illness or Injury [] Angry [] Fearful [] Anxious [] Often cries [] Exhaustion [] Unable to work [] Unable to attend caodaism [] Unable to walk/stand [] Unable to read [] Unable to drive [] Unable to eat/drink [] Unable to sleep [] Unable to be with family [] Patient intubated [] Other: Summary patient feeling stronger... setting up in chair.. Time spent with patient 10 min
[2020-12-27] MEDS: cholecalciferol (vitamin D3) 5,000 unit Tablet 5000 UNIT PO (09:43)
[2020-12-27] MEDS: saline nasal spray 44mL Btl 1 SPRAY NASAL (10:19)
[2020-12-27] MEDS: morphine 4 mg/mL SDV 1 mL 1 MG IVP (10:23)
[2020-12-27] MEDS: vancomycin 1,500 MG/300 ML PIGGYBACK 200 MG IV ×2 (10:24→21:35)
--- NOTE | 2020-12-27 12:55 | P.PN_ITS ---
Subjective Subjective: Interval history: UO 4 L, -2.9 L; length of stay -2.4 L; she remains on high flow nasal cannula FiO2 45% She states she feels somewhat better. Complains of stuffed nose. She has converted to sinus rhythm. Medications: Reviewed: Yes Medication Review Details: Current Medications Acetaminophen (Acetaminophen 325 Mg Tablet) 650 mg PO Q6H PRN PRN Reason: MILD PAIN Last Admin: 12/25/20 00:40 Dose: 650 mg Documented by: Acetazolamide (Acetazolamide 250 Mg Tablet) 250 mg PO Q12H [facility] Last Admin: 12/27/20 08:58 Dose: 250 mg Documented by: Albuterol Sulfate (Albuterol 8 Gm Mdi) 2 puff INHALATION Q4H.RESPIRATORY PRN PRN Reason: SHORTNESS OF BREATH Last Admin: 12/23/20 23:14 Dose: 2 puff Documented by: Albuterol/Ipratropium (Ipratropium-Albuterol 3 Ml Neb) 3 ml INHALATION Q4H PRN PRN Reason: SHORTNESS OF BREATH Last Admin: 12/27/20 08:37 Dose: 3 ml Documented by: Alprazolam (Alprazolam 0.25 Mg Tablet) 0.125 mg PO TID PRN PRN Reason: ANXIETY Last Admin: 12/26/20 04:19 Dose: 0.125 mg Documented by: Amiodarone HCl (Amiodarone 200 Mg Tablet) 400 mg PO Q8H [facility] Last Admin: 12/27/20 08:58 Dose: 400 mg Documented by: Doxycycline Monohydrate (Doxycycline 100 Mg Tablet) 100 mg PO BID [facility]; Protocol Last Admin: 12/27/20 08:59 Dose: 100 mg Documented by: Enoxaparin Sodium 100 mg/ (Enoxaparin Sodium 30 mg) 130 mg SUBCUT Q12H [facility] Last Admin: 12/27/20 05:30 Dose: 130 mg Documented by: Famotidine (Famotidine 20 Mg Tablet) 20 mg PO Q12H [facility] Last Admin: 12/27/20 05:30 Dose: 20 mg Documented by: Furosemide (Furosemide 10 Mg/Ml Sdv 4ml) 40 mg IVP Q8H [facility] Last Admin: 12/27/20 05:30 Dose: 40 mg Documented by: Guaifenesin/Dextromethorphan (Guaifenesin-Dextromethorphan Udc 10 Ml) 10 ml PO Q4H PRN PRN Reason: COUGH Last Admin: 12/25/20 19:31 Dose: 10 ml Documented by: Imipenem/Cilastatin Sodium 500 (mg/ Sodium Chloride) 100 mls @ 200 mls/hr IV Q6H [facility] Last Infusion: 12/27/20 10:31 Dose: Infused Documented by: Dexmedetomidine HCl 400 mcg/ (Sodium Chloride) 104 mls @ 0 mls/hr IV .Q0M [facility]; Protocol Last Titration: 12/24/20 15:30 Dose: Infused Documented by: Diltiazem HCl 125 mg/ Sodium (Chloride) 125 mls @ 0 mls/hr IV .Q0M [facility]; Protocol Last Titration: 12/26/20 19:43 Dose: 0 mg/hr, 0 mls/hr Documented by: Vancomycin/PEG/NADA/Lysine/Water (Vancocin) 1,500 mg in 300 mls @ 200 mls/hr IV Q12H [facility] Last Admin: 12/27/20 10:24 Dose: 200 mls/hr Documented by: Metoprolol Tartrate (Metoprolol Tartrate 50 Mg Tablet) 50 mg PO Q8H [facility] Last Admin: 12/27/20 08:59 Dose: 50 mg Documented by: Morphine Sulfate (Morphine 4 Mg/Ml Sdv 1 Ml) 1 mg IVP Q4H PRN PRN Reason: SEVERE PAIN Last Admin: 12/27/20 10:23 Dose: 1 mg Documented by: Ondansetron HCl (Ondansetron 2 Mg/Ml Sdv 2 Ml) 4 mg IVP Q6H PRN PRN Reason: NAUSEA AND VOMITING Potassium Chloride (Potassium Chloride Oral Liq 20 Meq/15 Ml Udc) 40 meq PO DAILY [facility] Last Admin: 12/27/20 09:00 Dose: 40 meq Documented by: Sodium Chloride (Saline Nasal Mason 44ml Btl) 1 spray NASAL PRN PRN PRN Reason: DRYNESS Last Admin: 12/27/20 10:19 Dose: 1 appful Documented by: Thiamine Mononitrate (Thiamine 100 Mg Tablet) 100 mg PO DAILY [facility] Last Admin: 12/27/20 08:59 Dose: 100 mg Documented by: Vitamin D (Cholecalciferol (Vitamin D3) 5,000 Unit Tablet) 5,000 unit PO DAILY [facility] Last Admin: 12/27/20 09:43 Dose: 5,000 unit Documented by: Zinc Gluconate (Zinc Gluconate 50 Mg Tablet) 50 mg PO DAILY [facility] Last Admin: 12/27/20 08:59 Dose: 50 mg Documented by: Vitals/I&O/Wt Last Vital Signs Temp 99.6 F 12/27/20 08:55 Pulse 83 12/27/20 11:52 Resp 30 H 12/27/20 11:52 BP 103/62 12/27/20 11:15 Pulse Ox 93 12/27/20 11:52 12/26/20 12/27/20 12/27/20 22:59 06:59 14:59 Intake Total 586 / 993.833 100 / 1093.833 940 / 940 Output Total 1300 / 3050 950 / 4000 800 / 800 Balance -714 / -2056.167 -850 / -2906.167 140 / 140 Weight last 48 hrs Weight 295 lb 8 oz Weight 283 lb Physical Exam Narrative: EXAM NARRATIVE: GENERAL: Obese woman lying in bed in some respiratory distress. HEENT: Pupils equal round reactive to light. No pallor or icterus. NECK: Short thick neck, unable to appreciate JVD. CARDIOVASCULAR SYSTEM: S1-S2 regular. no S3 or S4 present. No murmur rubs or gallops. RESPIRATORY SYSTEM: Coarse bilateral breath sounds absent at the bases. ABDOMEN: Soft, nontender and nondistended. Normal bowel sounds present. EXTREMITIES: No cyanosis or clubbing. No edema. No signs of chronic venous insufficiency. SALES AND MARKETING ASSISTANT: Patient is alert oriented ?3. No focal neurological deficits. Urinary Catheter Management^: Patel: Cath Placed During This Visit: yes Reason for Continuing Indwelling Catheter: Accurate Measurement of Urinary Output in Critically Ill Patients Urinary Catheter Date of Insertion: 12/23/20 Urinary Catheter Time of Insertion: 09:30 Data : 12/27/20 04:40 12/27/20 04:40 Micro: Microbiology 12/22/20 11:44 Blood Culture - Final Blood NO GROWTH AFTER 5 DAYS 12/26/20 20:34 Gram Stain - Final Sputum - Expectorated Sputum 12/26/20 09:22 Blood Culture - Preliminary Blood NEGATIVE TO DATE 12/26/20 09:30 Blood Culture - Preliminary Blood NEGATIVE TO DATE 12/26/20 10:30 MRSA Culture - Final Nose 12/26/20 10:30 Bacterial Antigens - Final Urine,Voided CXR: Radiologist's impression: IMPRESSION: 1. Right basal infiltrate and pleural effusion show minimal improvement. No other significant change. A&P Assessment and plan (1) Acute respiratory failure with hypoxia: She is currently on oxygen via HFNC -likely multifactorial in setting of decompensation of heart failure with preserved ejection fraction, pneumonia (possible bacterial pneumonia with recent history of COVID-19 pneumonia) -Repeat COVID-19 PCR negative. Status: Acute (2) CHF exacerbation: continue Lasix to 40 mg every 8 hourly, good UP so far. -Diamox was added Status: Acute Qualifiers: Heart failure type: diastolic Qualified Code(s): I50.33 - Acute on chronic diastolic (congestive) heart failure (3) Afib: Paroxysmal atrial fibrillation, converted back to sinus rhythm. -Metoprolol tartrate 50 mg q 8h. Continue therapeutic Lovenox. -continue amiodarone to 400 mg PO TID. Status: Acute Qualifiers: Atrial fibrillation type: unspecified chronic Qualified Code(s): I48.20 - Chronic atrial fibrillation, unspecified (4) Pulmonary embolism associated with COVID-19: -Currently on therapeutic Lovenox Status: Acute Additional A&P Information Pneumonia : On antibiotics as per primary team. Normocytic anemia Bilateral small pleural effusion Small pericardial effusion Thrombocytosis Elevated D-dimer Hypomagnesemia: Replaced Elevated liver enzymes: f/u CMP in am Hypoalbuminemia Thank you for allowing me to participate in patient's care. Please feel free to call with questions or concerns. Attestations Medical Necessity Statement*: Remains critically ill in ICU with respiratory failure Time Spent in Patient Care: Greater than 35 minutes (>than 50% of time spent in counselling and/or direct pt care on unit) . Critical Care Time: Critical Care Time (min): 30 Coding Level of Care Code Acute Reliability Technologist for Real Fwrichard Diagnoses Acute respiratory failure with hypoxia J96.01 CHF exacerbation I50.33 Heart failure type: diastolic Afib I48.20 Atrial fibrillation type: unspecified chronic Pulmonary embolism associated with COVID-19 U07.1; I26.99
[2020-12-27] MEDS: guaiFENesin-dextromethorphan UDC 10 mL PO (13:08)
--- NOTE | 2020-12-27 13:56 | P.PN_ITS ---
Subjective Subjective: Interval history: This morning patient was examined, she sitting up until chair, eating Cheerios, she is on high flow oxygen, she tells me that she is feeling better, she is feeling less short of breath, she does feel generalized weakness, but overall doing better Medications: Reviewed: Yes Medication Review Details: Current Medications Acetaminophen (Acetaminophen 325 Mg Tablet) 650 mg PO Q6H PRN PRN Reason: MILD PAIN Last Admin: 12/25/20 00:40 Dose: 650 mg Documented by: Acetazolamide (Acetazolamide 250 Mg Tablet) 250 mg PO Q12H [facility] Last Admin: 12/27/20 08:58 Dose: 250 mg Documented by: Albuterol Sulfate (Albuterol 8 Gm Mdi) 2 puff INHALATION Q4H.RESPIRATORY PRN PRN Reason: SHORTNESS OF BREATH Last Admin: 12/23/20 23:14 Dose: 2 puff Documented by: Albuterol/Ipratropium (Ipratropium-Albuterol 3 Ml Neb) 3 ml INHALATION Q4H PRN PRN Reason: SHORTNESS OF BREATH Last Admin: 12/27/20 08:37 Dose: 3 ml Documented by: Alprazolam (Alprazolam 0.25 Mg Tablet) 0.125 mg PO TID PRN PRN Reason: ANXIETY Last Admin: 12/26/20 04:19 Dose: 0.125 mg Documented by: Amiodarone HCl (Amiodarone 200 Mg Tablet) 400 mg PO Q8H [facility] Last Admin: 12/27/20 08:58 Dose: 400 mg Documented by: Doxycycline Monohydrate (Doxycycline 100 Mg Tablet) 100 mg PO BID [facility]; Protocol Last Admin: 12/27/20 08:59 Dose: 100 mg Documented by: Enoxaparin Sodium 100 mg/ (Enoxaparin Sodium 30 mg) 130 mg SUBCUT Q12H [facility] Last Admin: 12/27/20 05:30 Dose: 130 mg Documented by: Famotidine (Famotidine 20 Mg Tablet) 20 mg PO Q12H [facility] Last Admin: 12/27/20 05:30 Dose: 20 mg Documented by: Furosemide (Furosemide 10 Mg/Ml Sdv 4ml) 40 mg IVP Q8H [facility] Last Admin: 12/27/20 05:30 Dose: 40 mg Documented by: Guaifenesin/Dextromethorphan (Guaifenesin-Dextromethorphan Udc 10 Ml) 10 ml PO Q4H PRN PRN Reason: COUGH Last Admin: 12/25/20 19:31 Dose: 10 ml Documented by: Imipenem/Cilastatin Sodium 500 (mg/ Sodium Chloride) 100 mls @ 200 mls/hr IV Q6H [facility] Last Infusion: 12/27/20 10:31 Dose: Infused Documented by: Dexmedetomidine HCl 400 mcg/ (Sodium Chloride) 104 mls @ 0 mls/hr IV .Q0M [facility]; Protocol Last Titration: 12/24/20 15:30 Dose: Infused Documented by: Diltiazem HCl 125 mg/ Sodium (Chloride) 125 mls @ 0 mls/hr IV .Q0M [facility]; Protocol Last Titration: 12/26/20 19:43 Dose: 0 mg/hr, 0 mls/hr Documented by: Vancomycin/PEG/[place]DA/Lysine/Water (Vancocin) 1,500 mg in 300 mls @ 200 mls/hr IV Q12H [facility] Last Admin: 12/27/20 10:24 Dose: 200 mls/hr Documented by: Metoprolol Tartrate (Metoprolol Tartrate 50 Mg Tablet) 50 mg PO Q8H [facility] Last Admin: 12/27/20 08:59 Dose: 50 mg Documented by: Morphine Sulfate (Morphine 4 Mg/Ml Sdv 1 Ml) 1 mg IVP Q4H PRN PRN Reason: SEVERE PAIN Last Admin: 12/27/20 10:23 Dose: 1 mg Documented by: Ondansetron HCl (Ondansetron 2 Mg/Ml Sdv 2 Ml) 4 mg IVP Q6H PRN PRN Reason: NAUSEA AND VOMITING Potassium Chloride (Potassium Chloride Oral Liq 20 Meq/15 Ml Udc) 40 meq PO DAILY [facility] Last Admin: 12/27/20 09:00 Dose: 40 meq Documented by: Sodium Chloride (Saline Nasal [place] 44ml Btl) 1 spray NASAL PRN PRN PRN Reason: DRYNESS Last Admin: 12/27/20 10:19 Dose: 1 appful Documented by: Thiamine Mononitrate (Thiamine 100 Mg Tablet) 100 mg PO DAILY [facility] Last Admin: 12/27/20 08:59 Dose: 100 mg Documented by: Vitamin D (Cholecalciferol (Vitamin D3) 5,000 Unit Tablet) 5,000 unit PO DAILY [facility] Last Admin: 12/27/20 09:43 Dose: 5,000 unit Documented by: Zinc Gluconate (Zinc Gluconate 50 Mg Tablet) 50 mg PO DAILY [facility] Last Admin: 12/27/20 08:59 Dose: 50 mg Documented by: Vitals/I&O/Wt Last Vital Signs Temp 99.6 F 12/27/20 08:55 Pulse 78 12/27/20 13:05 Resp 36 H 12/27/20 13:05 BP 110/63 12/27/20 13:05 Pulse Ox 95 12/27/20 13:05 12/26/20 12/27/20 12/27/20 22:59 06:59 14:59 Intake Total 586 / 993.833 100 / 6508.805 5685 / 1300 Output Total 1300 / 3050 950 / 4000 800 / 800 Balance -714 / -2056.167 -850 / -2906.167 500 / 500 Weight last 48 hrs Weight 134.037 kg Weight 128.367 kg Physical Exam Const: COMMON NORMALS: no acute distress and patient oriented x3 HENMT: COMMON NORMALS: normocephalic HEAD & SCALP: normocephalic Neck/C-Spine: COMMON NORMALS: no JVD Resp: COMMON NORMALS: normal respiratory effort, No retractions, No use of accessory muscles and clear to auscultation bilaterally EFFORT & INSPECTION: Yes tachypneic and Yes retractions AUSCULTATION: clear to auscultation bilaterally Cardio: COMMON NORMALS: no JVD, regular rate, regular rhythm, S1 normal heart sound present and S2 normal heart sound present RATE: regular rate RHYTHM: regular rhythm HEART SOUNDS: S1 normal heart sound present and S2 normal heart sound present GI: COMMON NORMALS: Normal to inspection, nondistended, normoactive bowel sounds present, Soft to palpation, non-tender, No hepatosplenomegaly present, no masses and no bruits PALPATION: Yes Soft to palpation and Yes No hepatosplenomegaly present Extremity: COMMON NORMALS: capillary refill normal, no clubbing, cyanosis or edema, no calf tenderness and no pedal edema Neuro: COMMON NORMALS: patient oriented x3 Psych: COMMON NORMALS: mental status grossly normal Urinary Catheter Management^: Patel: Cath Placed During This Visit: yes Reason for Continuing Indwelling Catheter: Accurate Measurement of Urinary Output in Critically Ill Patients Urinary Catheter Date of Insertion: 12/23/20 Urinary Catheter Time of Insertion: 09:30 Data : 12/27/20 04:40 12/27/20 04:40 Micro: Microbiology 12/22/20 11:44 Blood Culture - Final Blood NO GROWTH AFTER 5 DAYS 12/26/20 20:34 Gram Stain - Final Sputum - Expectorated Sputum 12/26/20 09:22 Blood Culture - Preliminary Blood NEGATIVE TO DATE 12/26/20 09:30 Blood Culture - Preliminary Blood NEGATIVE TO DATE 12/26/20 10:30 MRSA Culture - Final Nose 12/26/20 10:30 Bacterial Antigens - Final Urine,Voided A&P Assessment and plan (1) Acute respiratory failure with hypoxia: Secondary to bilateral subsegmental pulmonary emboli, recent diagnosis of COVID-19 status post monoclonal antibody infusion, possible underlying pneumonia, diastolic CHF, A. fib with RVR Plan: -Continue to monitor in ICU -Currently on high flow, 35 L, 45% FiO2 -Heart rates are better controlled, converted back to normal sinus rhythm on metoprolol,, amiodarone, off Cardizem drip -Continue diuresis Lasix 40 mg IV twice daily, potassium replacement -Currently on vancomycin, Primaxin -Continue therapeutic Lovenox, monitor hemoglobin --2 L since admission, will hold Lasix, Diamox for metabolic alkalosis -Repeat blood cultures, sputum cultures, urine bacterial antigens -Monitor respiratory status closely -Full code -Lovenox for DVT prophylaxis Status: Acute (2) Pulmonary embolism associated with COVID-19: Status: Acute (3) CHF exacerbation: Status: Acute Qualifiers: Heart failure type: diastolic Qualified Code(s): I50.33 - Acute on chronic diastolic (congestive) heart failure (4) Atrial fibrillation with RVR: -Converted to normal sinus rhythm -On metoprolol 25 every 6h -Amiodarone 400 mg every 8h -Currently off Cardizem drip -Lovenox for DVT prophylaxis -Appreciate cardiology's input Status: Acute (5) Anemia: Hemoglobin 10.9, baseline is unknown Monitor hemoglobin as she is on full dose Lovenox Status: Acute Additional A&P Information 75-year-old female who was diagnosed with COVID-19 and received monoclonal antibodies mid-November who is presenting with worsening shortness of breath, fever, cough. Gram-positive bacteremia. Probably a contamination. Repeat cultures are negative. Bilateral subsegmental PE after recent COVID-19 diagnosis. Continue Lovenox full dose. Recent COVID-19. Received monoclonal antibodies. If patient clinically does not improve after better rate control and diuresis, will consider treatment for COVID-19 Bilateral pleural effusions. Probably very small and improved with diuresis. Continue close monitoring. Continue furosemide. A. fib with RVR Morbid obesity. CODE STATUS. Full code. The plan of care was discussed with the patient. She verbalized understanding and agreement. Attestations Medical Necessity Statement*: Patient requires hospitalization for acute respiratory failure, secondary to pulmonary emboli, A. fib, CHF, pneumonia Coding Level of Care Code Acute Contribution Solicitor for [facility] Diagnoses Acute respiratory failure with hypoxia J96.01 Pulmonary embolism associated with COVID-19 U07.1; I26.99 CHF exacerbation I50.33 Heart failure type: diastolic Atrial fibrillation with RVR I48.91 Anemia D64.9
--- NOTE | 2020-12-27 18:11 | PM.PN ---
Subjective Subjective: Interval history: Today morning heart rate is better controlled Patient also reported subjective improvement in her difficulty breathing -She is still on 45% and 35 L saturating 92 to 93% -Patient is net -2.9 L over last 24 hours ; bedside ultrasound showed significantly reduced to bilateral pleural effusions -Labs and imaging reviewed -CMP and ABG suggestive of metabolic alkalosis Medications: Reviewed: Yes Medication Review Details: Current Medications Acetaminophen (Acetaminophen 325 Mg Tablet) 650 mg PO Q6H PRN PRN Reason: MILD PAIN Last Admin: 12/25/20 00:40 Dose: 650 mg Documented by: Acetazolamide (Acetazolamide 250 Mg Tablet) 250 mg PO Q12H [facility] Last Admin: 12/27/20 08:58 Dose: 250 mg Documented by: Albuterol Sulfate (Albuterol 8 Gm Mdi) 2 puff INHALATION Q4H.RESPIRATORY PRN PRN Reason: SHORTNESS OF BREATH Last Admin: 12/23/20 23:14 Dose: 2 puff Documented by: Albuterol/Ipratropium (Ipratropium-Albuterol 3 Ml Neb) 3 ml INHALATION Q4H PRN PRN Reason: SHORTNESS OF BREATH Last Admin: 12/27/20 08:37 Dose: 3 ml Documented by: Alprazolam (Alprazolam 0.25 Mg Tablet) 0.125 mg PO TID PRN PRN Reason: ANXIETY Last Admin: 12/26/20 04:19 Dose: 0.125 mg Documented by: Amiodarone HCl (Amiodarone 200 Mg Tablet) 400 mg PO Q8H [facility]ES[facility] Last Admin: 12/27/20 08:58 Dose: 400 mg Documented by: Doxycycline Monohydrate (Doxycycline 100 Mg Tablet) 100 mg PO BID [facility]; Protocol Last Admin: 12/27/20 08:59 Dose: 100 mg Documented by: Enoxaparin Sodium 100 mg/ (Enoxaparin Sodium 30 mg) 130 mg SUBCUT Q12H [facility] Last Admin: 12/27/20 05:30 Dose: 130 mg Documented by: Famotidine (Famotidine 20 Mg Tablet) 20 mg PO Q12H [facility] Last Admin: 12/27/20 05:30 Dose: 20 mg Documented by: Furosemide (Furosemide 10 Mg/Ml Sdv 4ml) 40 mg IVP Q8H [facility] Last Admin: 12/27/20 05:30 Dose: 40 mg Documented by: Guaifenesin/Dextromethorphan (Guaifenesin-Dextromethorphan Udc 10 Ml) 10 ml PO Q4H PRN PRN Reason: COUGH Last Admin: 12/25/20 19:31 Dose: 10 ml Documented by: Imipenem/Cilastatin Sodium 500 (mg/ Sodium Chloride) 100 mls @ 200 mls/hr IV Q6H [facility] Last Infusion: 12/27/20 10:31 Dose: Infused Documented by: Dexmedetomidine HCl 400 mcg/ (Sodium Chloride) 104 mls @ 0 mls/hr IV .Q0M [facility]; Protocol Last Titration: 12/24/20 15:30 Dose: Infused Documented by: Diltiazem HCl 125 mg/ Sodium (Chloride) 125 mls @ 0 mls/hr IV .Q0M [facility]; Protocol Last Titration: 12/26/20 19:43 Dose: 0 mg/hr, 0 mls/hr Documented by: Vancomycin/PEG/NADA/Lysine/Water (Vancocin) 1,500 mg in 300 mls @ 200 mls/hr IV Q12H [facility] Last Admin: 12/27/20 10:24 Dose: 200 mls/hr Documented by: Metoprolol Tartrate (Metoprolol Tartrate 50 Mg Tablet) 50 mg PO Q8H [facility] Last Admin: 12/27/20 08:59 Dose: 50 mg Documented by: Morphine Sulfate (Morphine 4 Mg/Ml Sdv 1 Ml) 1 mg IVP Q4H PRN PRN Reason: SEVERE PAIN Last Admin: 12/27/20 10:23 Dose: 1 mg Documented by: Ondansetron HCl (Ondansetron 2 Mg/Ml Sdv 2 Ml) 4 mg IVP Q6H PRN PRN Reason: NAUSEA AND VOMITING Potassium Chloride (Potassium Chloride Oral Liq 20 Meq/15 Ml Udc) 40 meq PO DAILY [facility] Last Admin: 12/27/20 09:00 Dose: 40 meq Documented by: Sodium Chloride (Saline Nasal [place] 44ml Btl) 1 spray NASAL PRN PRN PRN Reason: DRYNESS Last Admin: 12/27/20 10:19 Dose: 1 appful Documented by: Thiamine Mononitrate (Thiamine 100 Mg Tablet) 100 mg PO DAILY [facility] Last Admin: 12/27/20 08:59 Dose: 100 mg Documented by: Vitamin D (Cholecalciferol (Vitamin D3) 5,000 Unit Tablet) 5,000 unit PO DAILY [facility] Last Admin: 12/27/20 09:43 Dose: 5,000 unit Documented by: Zinc Gluconate (Zinc Gluconate 50 Mg Tablet) 50 mg PO DAILY [facility] Last Admin: 12/27/20 08:59 Dose: 50 mg Documented by: Vitals/I&O/Wt Last Vital Signs Temp 98.7 F 12/27/20 15:45 Pulse 88 12/27/20 17:41 Resp 18 12/27/20 17:41 BP 114/60 12/27/20 15:53 Pulse Ox 93 12/27/20 17:41 12/27/20 12/27/20 12/27/20 06:59 14:59 22:59 Intake Total 100 / 9140.783 7291 / 1300 400 / 1700 Output Total 950 / 4000 800 / 800 Balance -850 / -2906.167 500 / 500 400 / 900 Weight last 48 hrs Weight 295 lb 8 oz Weight 283 lb Physical Exam Narrative: EXAM NARRATIVE: General: alert, in mild respiratory distress HEENT: conj clear, EOMI, PERRL, mmm, Neck: supple, no meningismus Heme: no cervical LAP Pulmonary: Improving bilateral breath sounds with bibasilar crackles still present Cardiovascular: rrr, nl s1s2, no mrg Abdomen: soft, nt, nd, no r/g, bs+ Extremities: pulses +, 1+ pedal edema, no c/c : no CVA tenderness Skin: intact, no rash MSK: no back or neck pain Neurologic: grossly intact Urinary Catheter Management^: Patel: Cath Placed During This Visit: yes Reason for Continuing Indwelling Catheter: Accurate Measurement of Urinary Output in Critically Ill Patients Urinary Catheter Date of Insertion: 12/23/20 Urinary Catheter Time of Insertion: 09:30 Data : 12/27/20 04:40 12/27/20 04:40 Micro: Microbiology 12/22/20 12:43 Blood Culture - Final Blood Coagulase negativ staphylococc 12/22/20 11:44 Blood Culture - Final Blood NO GROWTH AFTER 5 DAYS 12/26/20 20:34 Gram Stain - Final Sputum - Expectorated Sputum 12/26/20 09:22 Blood Culture - Preliminary Blood NEGATIVE TO DATE 12/26/20 09:30 Blood Culture - Preliminary Blood NEGATIVE TO DATE 12/26/20 10:30 MRSA Culture - Final Nose 12/26/20 10:30 Bacterial Antigens - Final Urine,Voided A&P Assessment and plan (1) Acute respiratory failure with hypoxia: Status: Acute (2) Pulmonary embolism associated with COVID-19: Status: Acute (3) Afib: Status: Acute Qualifiers: Atrial fibrillation type: unspecified chronic Qualified Code(s): I48.20 - Chronic atrial fibrillation, unspecified # Acute hypoxic respiratory failure due to bilateral PE and patient with recent COVID-19 infection last month #New onset A. fib with RVR #Bilateral pleural effusions likely due to reduced cardiac function in view of A. fib RVR versus pneumonia -Currently patient is requiring 45% FiO2 on 35 L high flow nasal cannula -can start titrating down as patient tolerates -ABG 7.4 9/47/58/30 5/93% saturation and CMP suggestive of metabolic alkalosis -Overall net -1.6 L since admission -Significantly reduced bilateral pleural effusions -Received Lasix 40 mg today early hours; held Lasix and started on Diamox 250 mg twice daily -CTPA 12/22/2020: On admission: Small bilateral lower lobe pulmonary embolus extending from proximal lobar branches to the segmental branches. -Atrial fibrillation with rate control-converted back to sinus rhythm. Currently on metoprolol 50 every 8 and amiodarone 400 mg p.o. 3 times daily. Cardiology following -Currently on Lovenox for PE and A. fib -Echo 12/23/2020: Reported as technically very difficult study with normal LV size and systolic function with EF 70%. Dilated IVC. Recommended repeat echo with contrast once patient heart rate is better controlled. -Broaden antibiotics to vancomycin, imipenem and doxycycline to cover atypicals; complete antibiotics 7 days and discontinue. Recommendations conveyed to RN, hospitalist covering the patient Attestations Medical Necessity Statement*: A. fib with a rate controlled and monitoring input output in view of acute on chronic diastolic heart failure,, need close monitoring to titrate oxygen requirement down Time Spent in Patient Care: Greater than 35 minutes (>than 50% of time spent in counselling and/or direct pt care on unit). Critical Care Time: Critical Care Time (min): 45 Coding Level of Care Code Established Pt Acute [employer] for [employer] Patient Type Established History Comprehensive Exam Comprehensive Medical Decision Making High Complexity Diagnoses Acute respiratory failure with hypoxia J96.01 Pulmonary embolism associated with COVID-19 U07.1; I26.99 Afib I48.20 Atrial fibrillation type: unspecified chronic Time Spent (min) 45
[2020-12-28] VITALS (262 sets, daily range): BP systolic 88–127; BP diastolic 41–83; PULSE 61–93; RESP 4–43; TEMP 37.1–37.3; O2SAT 68–98
[2020-12-28] MEDS: ipratropium-albuterol 3 mL Neb INHALATION ×3 (03:11→19:49)
[2020-12-28 04:03] LABS: Basophils # 0.1 10^3/uL (0.0-0.1); Basophils % 0.4 %; Eosinophils # 0.3 10^3/uL (0.0-0.8); Eosinophils % 1.7 %; Hematocrit 32.9 % (37.0-47.0); Hemoglobin 9.5 g/dL (11.5-15.3); Lymphocytes # 2.6 10^3/uL (0.8-4.8); Lymphocytes % 17.2 %; Mean Corpuscular HGB Conc 28.9 g/dL (30.0-36.0); Mean Corpuscular Hemoglobin 26.8 pg (28.0-34.0); Mean Corpuscular Volume 92.7 fL (81-99); Mean Platelet Volume 10.6 fL (7.4-10.4); Monocytes # 1.6 10^3/uL (0.2-0.9); Monocytes % 10.5 %; Neutrophils # 10.43 10^3/uL (1.8-7.7); Neutrophils % 69.1 %; Nucleated Red Blood Cells % 0 %; Platelet Count 370 10^3/cmm (130-400); Red Blood Count 3.55 10^6/uL (4.1-5.3); Red Cell Distribution Width 13.9 % (12.1-15.1); White Blood Count 15.1 10^3/uL (4.0-10.0)
[2020-12-28 04:18] LABS: INR 1.23 (0.8-1.2)
[2020-12-28 04:25] LABS: Alanine Aminotransferase 34 U/L (0-33); Albumin Level 1.9 g/dL (3.5-5.2); Alkaline Phosphatase 79 IU/L (35-105); Anion Gap 10.5 (5-19); Aspartate Amino Transferase 34 U/L (0-32); Blood Urea Nitrogen 23 mg/dL (8-23); C Reactive Protein 112.4 mg/L (0.0-4.9); Calcium 8.6 mg/dL (8.5-10.5); Carbon Dioxide 29 mmol/L (22-29); Chloride 102 mmol/L (98-107); Globulin 3.8 g/dL (1.3-4.6); Glucose 113 mg/dL (65-115); Magnesium 1.8 mg/dL (1.7-2.3); Osmolality Calculated 290 mOsm/kg (285-295); Potassium 3.5 mmol/L (3.5-5.1); Sodium 138 mmol/L (136-145); Total Bilirubin 0.3 mg/dL (0.15-1.2); Total Protein 5.7 g/dL (6.6-8.7)
[2020-12-28 04:40] LABS: ABG PCO2 44.5 mmHg (35-45); ABG PH Result 7.46 (7.35-7.45); Arterial Blood Gas Hematocrit 31.8 % (37-47); Base Excess ABG 6.6 mmol/L (-2.0-2.0); Blood Gas Allen Test Pos; Blood Gas Sample Site Radial, left; Blood Gas Sample Type Arterial; HCO3 ABG 31.3 mmol/L (22-26); PO2 ABG 67.9 mmHg (80.0-100.0)
[2020-12-28 04:42] LABS: NT Pro B Type Natriuretic Pept 420 pg/mL (0-450)
[2020-12-28] MEDS: famotidine 20 mg Tablet PO (05:36)
[2020-12-28] MEDS: amiodarone 200 mg Tablet 400 MG PO ×3 (07:41→23:23)
[2020-12-28] MEDS: FUROsemide 40 mg Tablet PO ×2 (07:41→15:11)
--- NOTE | 2020-12-28 09:16 | PC.CHAP ---
Pastoral Care Encounter/Spiritual Assessment Type of Contact [] Declined machine set up operator paper goods visit [] Patient/Family/Request visit [] Outpatient visit [] Follow-up visit [] Physician referral [] Code/Alert [x] Routine visit [] Staff referral [] Actively dying [] Patient sleeping [] Family support [] [] Out of room [] Palliative care [] [] Receiving care in room [] Pre-surgical visit [] Trauma [] Long length of stay [x] ICU visit [] Other: Relational/Emotional Strength [] Patient feels connected with others/family/visitors/staff [] Distress [] Loneliness/isolation [] Abandonment Spirituality of Patient [] Person of Tonya [] Attends Uatsdin of their Tonya [] Believes in Prayer [] Reads Bible or Cheondoism materials [] There are Spiritual issues to be addressed [employer]sembler [employer] Interventions [x] Prayer [x] Active listening [x] Non-anxious presence [x] Spiritual/emotional support [] Crisis/trauma care [] Spiritual counseling [] Bereavement support [] Provided bereavement packet [] Provided Bible/devotional materials [] Provided toy/stuffed animal, coloring book to patient or family member [] Provided Communion [] Anointing/[place] [] Salvation [x] Completed spiritual assessment [] Other: Impact on Illness or Injury [] Angry [] Fearful [] Anxious [] Often cries [] Exhaustion [] Unable to work [] Unable to attend yarsanism [] Unable to walk/stand [] Unable to read [] Unable to drive [] Unable to eat/drink [] Unable to sleep [] Unable to be with family [] Patient intubated [] Other: Summary patient setting in chair having breakfast.. not much improvement over yesterday.. but working on it... Time spent with patient 10 min
--- NOTE | 2020-12-28 09:18 | P.PN_ITS ---
Subjective Subjective: Interval history: She feels better. remains in SR on telemetry. Currently on HFNC (35 L, FiO2-45%) Medications: Reviewed: Yes Medication Review Details: Current Medications Acetaminophen (Acetaminophen 325 Mg Tablet) 650 mg PO Q6H PRN PRN Reason: MILD PAIN Last Admin: 12/25/20 00:40 Dose: 650 mg Documented by: Albuterol Sulfate (Albuterol 8 Gm Mdi) 2 puff INHALATION Q4H.RESPIRATORY PRN PRN Reason: SHORTNESS OF BREATH Last Admin: 12/23/20 23:14 Dose: 2 puff Documented by: Albuterol/Ipratropium (Ipratropium-Albuterol 3 Ml Neb) 3 ml INHALATION Q4H PRN PRN Reason: SHORTNESS OF BREATH Last Admin: 12/28/20 08:40 Dose: 3 ml Documented by: Alprazolam (Alprazolam 0.25 Mg Tablet) 0.125 mg PO TID PRN PRN Reason: ANXIETY Last Admin: 12/26/20 04:19 Dose: 0.125 mg Documented by: Amiodarone HCl (Amiodarone 200 Mg Tablet) 400 mg PO Q8H [facility] Last Admin: 12/28/20 07:41 Dose: 400 mg Documented by: Enoxaparin Sodium 100 mg/ (Enoxaparin Sodium 30 mg) 130 mg SUBCUT Q12H [facility] Last Admin: 12/28/20 05:35 Dose: 130 mg Documented by: Furosemide (Furosemide 40 Mg Tablet) 40 mg PO BID@08,16 [facility] Last Admin: 12/28/20 07:41 Dose: 40 mg Documented by: Guaifenesin/Dextromethorphan (Guaifenesin-Dextromethorphan Udc 10 Ml) 10 ml PO Q4H PRN PRN Reason: COUGH Last Admin: 12/27/20 13:08 Dose: 10 ml Documented by: Imipenem/Cilastatin Sodium 500 (mg/ Sodium Chloride) 100 mls @ 200 mls/hr IV Q6H [facility] Last Admin: 12/28/20 07:42 Dose: 200 mls/hr Documented by: Dexmedetomidine HCl 400 mcg/ (Sodium Chloride) 104 mls @ 0 mls/hr IV .Q0M [facility]; Protocol Last Titration: 12/24/20 15:30 Dose: Infused Documented by: Diltiazem HCl 125 mg/ Sodium (Chloride) 125 mls @ 0 mls/hr IV .Q0M [facility]; Protocol Last Titration: 12/26/20 19:43 Dose: 0 mg/hr, 0 mls/hr Documented by: Vancomycin/PEG/NADA/Lysine/Water (Vancocin) 1,500 mg in 300 mls @ 200 mls/hr IV Q12H [facility] Last Infusion: 12/27/20 23:05 Dose: Infused Documented by: Metoprolol Tartrate (Metoprolol Tartrate 50 Mg Tablet) 50 mg PO Q8H [facility] Last Admin: 12/28/20 00:40 Dose: Not Given Documented by: Morphine Sulfate (Morphine 4 Mg/Ml Sdv 1 Ml) 1 mg IVP Q4H PRN PRN Reason: SEVERE PAIN Last Admin: 12/27/20 10:23 Dose: 1 mg Documented by: Ondansetron HCl (Ondansetron 2 Mg/Ml Sdv 2 Ml) 4 mg IVP Q6H PRN PRN Reason: NAUSEA AND VOMITING Pantoprazole Sodium (Pantoprazole Dr 40 Mg Tablet) 40 mg PO BID [facility] Potassium Chloride (Potassium Chloride Oral Liq 20 Meq/15 Ml Udc) 40 meq PO DAILY [facility] Last Admin: 12/27/20 09:00 Dose: 40 meq Documented by: Sodium Chloride (Saline Nasal [place] 44ml Btl) 1 spray NASAL PRN PRN PRN Reason: DRYNESS Last Admin: 12/27/20 10:19 Dose: 1 appful Documented by: Sucralfate (Sucralfate 1 Gm Tablet) 1 gm PO AC&BEDTIME [facility] Thiamine Mononitrate (Thiamine 100 Mg Tablet) 100 mg PO DAILY [facility] Last Admin: 12/27/20 08:59 Dose: 100 mg Documented by: Vitamin D (Cholecalciferol (Vitamin D3) 5,000 Unit Tablet) 5,000 unit PO DAILY [facility] Last Admin: 12/27/20 09:43 Dose: 5,000 unit Documented by: Zinc Gluconate (Zinc Gluconate 50 Mg Tablet) 50 mg PO DAILY [facility] Last Admin: 12/27/20 08:59 Dose: 50 mg Documented by: Vitals/I&O/Wt Last Vital Signs Temp 98.7 F 12/27/20 22:00 Pulse 80 12/28/20 08:42 Resp 22 H 12/28/20 08:40 BP 88/46 12/28/20 06:00 Pulse Ox 96 12/28/20 08:40 12/27/20 12/28/20 12/28/20 22:59 06:59 14:59 Intake Total 1325 / 2625 400 / 3025 Output Total 2450 / 3250 750 / 4000 Balance -1125 / -625 -350 / -975 Weight last 48 hrs Weight 286 lb Weight 295 lb 8 oz Physical Exam Narrative: EXAM NARRATIVE: GENERAL: Obese woman lying in bed in some respiratory distress. HEENT: Pupils equal round reactive to light. No pallor or icterus. NECK: Short thick neck, unable to appreciate JVD. CARDIOVASCULAR SYSTEM: S1-S2 regular. no S3 or S4 present. No murmur rubs or gallops. RESPIRATORY SYSTEM: Coarse bilateral breath sounds absent at the bases. ABDOMEN: Soft, nontender and nondistended. Normal bowel sounds present. EXTREMITIES: No cyanosis or clubbing. No edema. No signs of chronic venous insufficiency. SHELLFISH CHECKER: Patient is alert oriented ?3. No focal neurological deficits. Urinary Catheter Management^: Patel: Cath Placed During This Visit: yes Reason for Continuing Indwelling Catheter: Accurate Measurement of Urinary Output in Critically Ill Patients Urinary Catheter Date of Insertion: 12/23/20 Urinary Catheter Time of Insertion: 09:30 Data : 12/28/20 03:38 12/28/20 03:38 Other Labs: ABG with pH of 7.46, PCO2 45, PO2 68, FiO2 45%. Micro: Microbiology 12/22/20 12:43 Blood Culture - Final Blood Coagulase negativ staphylococc 12/22/20 11:44 Blood Culture - Final Blood NO GROWTH AFTER 5 DAYS 12/26/20 20:34 Gram Stain - Final Sputum - Expectorated Sputum 12/26/20 09:22 Blood Culture - Preliminary Blood NEGATIVE TO DATE 12/26/20 09:30 Blood Culture - Preliminary Blood NEGATIVE TO DATE A&P Assessment and plan (1) Acute respiratory failure with hypoxia: She is currently on oxygen via HFNC -likely multifactorial in setting of decompensation of heart failure with preserved ejection fraction, pneumonia (possible bacterial pneumonia with recent history of COVID-19 pneumonia) -Repeat COVID-19 PCR negative. Status: Acute (2) CHF exacerbation: Being diuresed per pulmonary and primary team. -repeat echocardiogram today Status: Acute Qualifiers: Heart failure type: diastolic Qualified Code(s): I50.33 - Acute on chronic diastolic (congestive) heart failure (3) Afib: Paroxysmal atrial fibrillation, converted back to sinus rhythm. -Metoprolol tartrate 50 mg q 8h. Continue therapeutic Lovenox. -continue amiodarone to 400 mg PO TID another day. Status: Acute Qualifiers: Atrial fibrillation type: unspecified chronic Qualified Code(s): I48.20 - Chronic atrial fibrillation, unspecified (4) Pulmonary embolism associated with COVID-19: -Currently on therapeutic Lovenox Status: Acute Additional A&P Information Pneumonia : On antibiotics as per primary team. Normocytic anemia Bilateral small pleural effusion Small pericardial effusion: Thrombocytosis: resolved Elevated D-dimer Hypomagnesemia: Replaced Elevated liver enzymes: f/u CMP in am Hypoalbuminemia Thank you for allowing me to participate in patient's care. Please feel free to call with questions or concerns. Attestations Medical Necessity Statement*: As per primary team Time Spent in Patient Care: Greater than 35 minutes (>than 50% of time spent in counselling and/or direct pt care on unit) . Coding Level of Care Code Acute [employer] Diagnoses Acute respiratory failure with hypoxia J96.01 CHF exacerbation I50.33 Heart failure type: diastolic Afib I48.20 Atrial fibrillation type: unspecified chronic Pulmonary embolism associated with COVID-19 U07.1; I26.99
--- NOTE | 2020-12-28 09:24 | USCV_ITS ---
Nano Lu Age: 75 Gender: F : 1945 Exam Date: 12/28/2020 14:44 Ordering Phys: Daisy Malik MD ([email or web address]) Technologist: Amari Alonso [place] [facility] [place]: Pericardial effusion BP: 114 / 59 HR: 71 Rhythm: Sinus Technical Quality: Good MEASUREMENTS (Male / Female) Normal Values 2D ECHO LV Diastolic Diameter PLAX 4.6 cm 4.2 - 5.9 / 3.9 - 5.3 cm LV Systolic Diameter PLAX 3.6 cm IVS Diastolic Thickness 1.5 cm 0.6 - 1.0 / 0.6 - 0.9 cm IVS Systolic Thickness 1.5 cm LVPW Diastolic Thickness 1.2 cm 0.6 - 1.0 / 0.6 - 0.9 cm LVPW Systolic Thickness 1.5 cm LV Ejection Fraction 2D Teich 39.5 % LV Ejection Fraction MOD 2C 57.7 % LV Ejection Fraction 2C AL 60.2 % FINDINGS Left Ventricle Normal left ventricle size and systolic function. Left ventricle ejection fraction estimated at 60%. No regional wall motion abnormality. Right Ventricle Normal right ventricular size and systolic function. Right Atrium Right atrium not well visualized. Left Atrium Upper normal left atrial size. Mitral Valve Thickened mitral valve. Aortic Valve Aortic valve not well visualized. Tricuspid Valve Tricuspid valve not well visualized. Pulmonic Valve Pulmonic valve not well visualized. Pericardium Small pericardial effusion. No evidence of hemodynamic compromise. Aorta Aorta not well visualized. Normal-sized inferior vena cava. CONCLUSIONS 1. This is a limited study with ultrasound enhancing agent (Optison). 2. Normal left ventricle size and systolic function. Left ventricle ejection fraction estimated at 60%. No regional wall motion abnormality. 3. Normal right ventricular size and systolic function. 4. Small pericardial effusion. No evidence of hemodynamic compromise. 5. Normal-sized inferior vena cava. 6. No significant change when compared to echocardiogram dated 12/23/2020. Daisy Malik MD (Electronically Signed) Final Date: 28 December 2020 17:37 S
[2020-12-28 10:08] LABS: Ferritin 839 ng/mL (15-150); Iron 20 ug/dL (37-145)
--- NOTE | 2020-12-28 10:08 | PC.NURSE ---
assisted up to chair for breakfast and remains there. new iv started.
[2020-12-28] MEDS: zinc gluconate 50 mg Tablet PO (10:13)
[2020-12-28] MEDS: metoprolol tartrate 50 mg Tablet PO ×2 (10:13→16:58)
[2020-12-28] MEDS: potassium chloride oral liq 20 mEq/15 mL UDC 40 MEQ PO (10:13)
[2020-12-28] MEDS: pantoprazole DR 40 mg Tablet PO ×2 (10:13→17:00)
[2020-12-28] MEDS: vancomycin 1,500 MG/300 ML PIGGYBACK 200 MG IV ×2 (10:14→22:00)
[2020-12-28] MEDS: thiamine 100 mg Tablet PO (10:45)
[2020-12-28] MEDS: sucralfate 1 gm Tablet PO ×4 (10:45→22:04)
[2020-12-28] MEDS: cholecalciferol (vitamin D3) 5,000 unit Tablet 5000 UNIT PO (11:53)
[2020-12-28 12:34] LABS: Hematocrit 32.4 % (37.0-47.0); Hemoglobin 9.6 g/dL (11.5-15.3)
--- NOTE | 2020-12-28 12:58 | P.PN_ITS ---
Subjective Subjective: Interval history: This morning patient was examined, she sitting up to the side of the bed, in a chair, she still remains on heated high flow, her appetite has improved to some degree, her weakness also has improved, no fevers, no chills, no nausea, no vomiting, her heart rates are better controlled, she continues to have good urine output Medications: Reviewed: Yes Medication Review Details: Current Medications Acetaminophen (Acetaminophen 325 Mg Tablet) 650 mg PO Q6H PRN PRN Reason: MILD PAIN Last Admin: 12/25/20 00:40 Dose: 650 mg Documented by: Albuterol Sulfate (Albuterol 8 Gm Mdi) 2 puff INHALATION Q4H.RESPIRATORY PRN PRN Reason: SHORTNESS OF BREATH Last Admin: 12/23/20 23:14 Dose: 2 puff Documented by: Albuterol/Ipratropium (Ipratropium-Albuterol 3 Ml Neb) 3 ml INHALATION Q4H PRN PRN Reason: SHORTNESS OF BREATH Last Admin: 12/28/20 08:40 Dose: 3 ml Documented by: Alprazolam (Alprazolam 0.25 Mg Tablet) 0.125 mg PO TID PRN PRN Reason: ANXIETY Last Admin: 12/26/20 04:19 Dose: 0.125 mg Documented by: Amiodarone HCl (Amiodarone 200 Mg Tablet) 400 mg PO Q8H [facility] Last Admin: 12/28/20 07:41 Dose: 400 mg Documented by: Enoxaparin Sodium 100 mg/ (Enoxaparin Sodium 30 mg) 130 mg SUBCUT Q12H [facility] Last Admin: 12/28/20 05:35 Dose: 130 mg Documented by: Furosemide (Furosemide 40 Mg Tablet) 40 mg PO BID@08,16 [facility] Last Admin: 12/28/20 07:41 Dose: 40 mg Documented by: Guaifenesin/Dextromethorphan (Guaifenesin-Dextromethorphan Udc 10 Ml) 10 ml PO Q4H PRN PRN Reason: COUGH Last Admin: 12/27/20 13:08 Dose: 10 ml Documented by: Imipenem/Cilastatin Sodium 500 (mg/ Sodium Chloride) 100 mls @ 200 mls/hr IV Q6H [facility] Last Admin: 12/28/20 07:42 Dose: 200 mls/hr Documented by: Dexmedetomidine HCl 400 mcg/ (Sodium Chloride) 104 mls @ 0 mls/hr IV .Q0M [facility]; Protocol Last Titration: 12/24/20 15:30 Dose: Infused Documented by: Diltiazem HCl 125 mg/ Sodium (Chloride) 125 mls @ 0 mls/hr IV .Q0M [facility]; Protocol Last Titration: 12/26/20 19:43 Dose: 0 mg/hr, 0 mls/hr Documented by: Vancomycin/PEG/NADA/Lysine/Water (Vancocin) 1,500 mg in 300 mls @ 200 mls/hr IV Q12H [facility] [place] Last Infusion: 12/27/20 23:05 Dose: Infused Documented by: Metoprolol Tartrate (Metoprolol Tartrate 50 Mg Tablet) 50 mg PO Q8H [facility] [place] Last Admin: 12/28/20 00:40 Dose: Not Given Documented by: Morphine Sulfate (Morphine 4 Mg/Ml Sdv 1 Ml) 1 mg IVP Q4H PRN PRN Reason: SEVERE PAIN Last Admin: 12/27/20 10:23 Dose: 1 mg Documented by: Ondansetron HCl (Ondansetron 2 Mg/Ml Sdv 2 Ml) 4 mg IVP Q6H PRN PRN Reason: NAUSEA AND VOMITING Pantoprazole Sodium (Pantoprazole Dr 40 Mg Tablet) 40 mg PO BID [facility] [place] Potassium Chloride (Potassium Chloride Oral Liq 20 Meq/15 Ml Udc) 40 meq PO DAILY [facility] Last Admin: 12/27/20 09:00 Dose: 40 meq Documented by: Sodium Chloride (Saline Nasal [place] 44ml Btl) 1 spray NASAL PRN PRN PRN Reason: DRYNESS Last Admin: 12/27/20 10:19 Dose: 1 appful Documented by: Sucralfate (Sucralfate 1 Gm Tablet) 1 gm PO AC&BEDTIME [facility] [place] Thiamine Mononitrate (Thiamine 100 Mg Tablet) 100 mg PO DAILY [facility] [place] Last Admin: 12/27/20 08:59 Dose: 100 mg Documented by: Vitamin D (Cholecalciferol (Vitamin D3) 5,000 Unit Tablet) 5,000 unit PO DAILY [facility] [place] Last Admin: 12/27/20 09:43 Dose: 5,000 unit Documented by: Zinc Gluconate (Zinc Gluconate 50 Mg Tablet) 50 mg PO DAILY [facility] [place] Last Admin: 12/27/20 08:59 Dose: 50 mg Documented by: Vitals/I&O/Wt Last Vital Signs Temp 98.7 F 12/28/20 06:55 Pulse 81 12/28/20 12:00 Resp 33 H 12/28/20 12:00 BP 117/63 12/28/20 12:00 Pulse Ox 92 12/28/20 12:00 12/27/20 12/28/20 12/28/20 22:59 06:59 14:59 Intake Total 1325 / 2625 400 / 3025 740 / 740 Output Total 2450 / 3250 750 / 4000 700 / 700 Balance -1125 / -625 -350 / -975 40 / 40 Weight last 48 hrs Weight 129.727 kg Physical Exam Const: COMMON NORMALS: no acute distress and patient oriented x3 HENMT: COMMON NORMALS: normocephalic HEAD & SCALP: normocephalic Neck/C-Spine: COMMON NORMALS: no JVD Resp: COMMON NORMALS: normal respiratory effort, No retractions, No use of accessory muscles and clear to auscultation bilaterally AUSCULTATION: clear to auscultation bilaterally Cardio: COMMON NORMALS: no JVD, regular rate, regular rhythm, S1 normal heart sound present and S2 normal heart sound present RATE: regular rate RHYTHM: regular rhythm HEART SOUNDS: S1 normal heart sound present and S2 normal heart sound present GI: COMMON NORMALS: Normal to inspection, nondistended, normoactive bowel sounds present, Soft to palpation, non-tender, No hepatosplenomegaly present, no masses and no bruits PALPATION: Yes Soft to palpation and Yes No hepatosplenomegaly present Extremity: COMMON NORMALS: capillary refill normal, no clubbing, cyanosis or edema, no calf tenderness and no pedal edema Neuro: COMMON NORMALS: patient oriented x3 Psych: COMMON NORMALS: mental status grossly normal Urinary Catheter Management^: Patel: Cath Placed During This Visit: yes Reason for Continuing Indwelling Catheter: Accurate Measurement of Urinary Output in Critically Ill Patients Urinary Catheter Date of Insertion: 12/23/20 Urinary Catheter Time of Insertion: 09:30 Data : 12/28/20 12:25 12/28/20 03:38 Micro: Microbiology 12/22/20 12:43 Blood Culture - Final Blood Coagulase negativ staphylococc 12/22/20 11:44 Blood Culture - Final Blood NO GROWTH AFTER 5 DAYS 12/26/20 20:34 Gram Stain - Final Sputum - Expectorated Sputum 12/26/20 09:22 Blood Culture - Preliminary Blood NEGATIVE TO DATE 12/26/20 09:30 Blood Culture - Preliminary Blood NEGATIVE TO DATE A&P Assessment and plan (1) Acute respiratory failure with hypoxia: Secondary to bilateral subsegmental pulmonary emboli, recent diagnosis of COVID-19 status post monoclonal antibody infusion, possible underlying pneumonia, diastolic CHF, A. fib with RVR Plan: -Continue to monitor in ICU -Currently on high flow, titrate down -Heart rates are better controlled, converted back to normal sinus rhythm on metoprolol,, amiodarone, off Cardizem drip -Continue diuresis Lasix 40 mg p.o. twice daily -Currently on vancomycin, Primaxin -Continue therapeutic Lovenox -monitor hemoglobin as hemoglobin is down to 9.6, Hemoccult stool, iron levels low at 20, thus will start Protonix 40 twice daily and Carafate - -3.4 L since admission -Repeat blood cultures, sputum cultures, urine bacterial antigens all negative so far -Monitor respiratory status closely -Full code -Lovenox for DVT prophylaxis Status: Acute (2) Pulmonary embolism associated with COVID-19: Status: Acute (3) CHF exacerbation: Status: Acute Qualifiers: Heart failure type: diastolic Qualified Code(s): I50.33 - Acute on chronic diastolic (congestive) heart failure (4) Atrial fibrillation with RVR: -Converted to normal sinus rhythm -On metoprolol 25 every 6h -Amiodarone 400 mg every 8h -Currently off Cardizem drip -Lovenox for DVT prophylaxis -Appreciate cardiology's input Status: Acute (5) Anemia: Hemoglobin 10.9, baseline is unknown Monitor hemoglobin as she is on full dose Lovenox Status: Acute Additional A&P Information 75-year-old female who was diagnosed with COVID-19 and received monoclonal antibodies mid-November who is presenting with worsening shortness of breath, fever, cough. Gram-positive bacteremia. Probably a contamination. Repeat cultures are negative. Bilateral subsegmental PE after recent COVID-19 diagnosis. Continue Lovenox full dose. Recent COVID-19. Received monoclonal antibodies. Bilateral pleural effusions. Probably very small and improved with diuresis. Continue close monitoring. Continue furosemide. Morbid obesity. CODE STATUS. Full code. The plan of care was discussed with the patient. She verbalized understanding and agreement. Attestations Medical Necessity Statement*: Patient requires hospitalization for acute respiratory failure with hypoxia, secondary to pulmonary emboli, pulmonary edema, atrial fibrillation, requiring ICU admission, critical care time spent over 45 minutes Coding Level of Care Code Acute [employer] [facility] [employer] Diagnoses Acute respiratory failure with hypoxia J96.01 Pulmonary embolism associated with COVID-19 U07.1; I26.99 CHF exacerbation I50.33 Heart failure type: diastolic Atrial fibrillation with RVR I48.91 Anemia D64.9
[2020-12-28 13:49] LABS: Oxygen Device HHF
[2020-12-28] MEDS: perflutren protein-a microsphr 0.22 mg/mL SDV 3 mL IV (15:03)
[2020-12-28] MEDS: guaiFENesin-dextromethorphan UDC 10 mL PO (15:37)
--- NOTE | 2020-12-28 17:03 | P.PN_ITS ---
Subjective Subjective: Interval history: Patient heart rate better controlled -Diuresing well -Subjective improvement in her breathing -Down to 25 L at FiO2 32% -Labs and imaging reviewed Medications: Reviewed: Yes Medication Review Details: Current Medications Acetaminophen (Acetaminophen 325 Mg Tablet) 650 mg PO Q6H PRN PRN Reason: MILD PAIN Last Admin: 12/25/20 00:40 Dose: 650 mg Documented by: Albuterol Sulfate (Albuterol 8 Gm Mdi) 2 puff INHALATION Q4H.RESPIRATORY PRN PRN Reason: SHORTNESS OF BREATH Last Admin: 12/23/20 23:14 Dose: 2 puff Documented by: Albuterol/Ipratropium (Ipratropium-Albuterol 3 Ml Neb) 3 ml INHALATION Q4H PRN PRN Reason: SHORTNESS OF BREATH Last Admin: 12/28/20 08:40 Dose: 3 ml Documented by: Alprazolam (Alprazolam 0.25 Mg Tablet) 0.125 mg PO TID PRN PRN Reason: ANXIETY Last Admin: 12/26/20 04:19 Dose: 0.125 mg Documented by: Amiodarone HCl (Amiodarone 200 Mg Tablet) 400 mg PO Q8H [facility] Last Admin: 12/28/20 07:41 Dose: 400 mg Documented by: Enoxaparin Sodium 100 mg/ (Enoxaparin Sodium 30 mg) 130 mg SUBCUT Q12H [facility] Last Admin: 12/28/20 05:35 Dose: 130 mg Documented by: Furosemide (Furosemide 40 Mg Tablet) 40 mg PO BID@08,16 [facility] Last Admin: 12/28/20 07:41 Dose: 40 mg Documented by: Guaifenesin/Dextromethorphan (Guaifenesin-Dextromethorphan Udc 10 Ml) 10 ml PO Q4H PRN PRN Reason: COUGH Last Admin: 12/27/20 13:08 Dose: 10 ml Documented by: Imipenem/Cilastatin Sodium 500 (mg/ Sodium Chloride) 100 mls @ 200 mls/hr IV Q6H [facility] Last Admin: 12/28/20 07:42 Dose: 200 mls/hr Documented by: Dexmedetomidine HCl 400 mcg/ (Sodium Chloride) 104 mls @ 0 mls/hr IV .Q0M [facility]; Protocol Last Titration: 12/24/20 15:30 Dose: Infused Documented by: Diltiazem HCl 125 mg/ Sodium (Chloride) 125 mls @ 0 mls/hr IV .Q0M [facility]; Protocol Last Titration: 12/26/20 19:43 Dose: 0 mg/hr, 0 mls/hr Documented by: Vancomycin/PEG/[place]DA/Lysine/Water (Vancocin) 1,500 mg in 300 mls @ 200 mls/hr IV Q12H [facility] Last Infusion: 12/27/20 23:05 Dose: Infused Documented by: Metoprolol Tartrate (Metoprolol Tartrate 50 Mg Tablet) 50 mg PO Q8H [facility] Last Admin: 12/28/20 00:40 Dose: Not Given Documented by: Morphine Sulfate (Morphine 4 Mg/Ml Sdv 1 Ml) 1 mg IVP Q4H PRN PRN Reason: SEVERE PAIN Last Admin: 12/27/20 10:23 Dose: 1 mg Documented by: Ondansetron HCl (Ondansetron 2 Mg/Ml Sdv 2 Ml) 4 mg IVP Q6H PRN PRN Reason: NAUSEA AND VOMITING Pantoprazole Sodium (Pantoprazole Dr 40 Mg Tablet) 40 mg PO BID [facility] Potassium Chloride (Potassium Chloride Oral Liq 20 Meq/15 Ml Udc) 40 meq PO DAILY [facility] Last Admin: 12/27/20 09:00 Dose: 40 meq Documented by: Sodium Chloride (Saline Nasal [place] 44ml Btl) 1 spray NASAL PRN PRN PRN Reason: DRYNESS Last Admin: 12/27/20 10:19 Dose: 1 appful Documented by: Sucralfate (Sucralfate 1 Gm Tablet) 1 gm PO AC&BEDTIME [facility] Thiamine Mononitrate (Thiamine 100 Mg Tablet) 100 mg PO DAILY [facility] Last Admin: 12/27/20 08:59 Dose: 100 mg Documented by: Vitamin D (Cholecalciferol (Vitamin D3) 5,000 Unit Tablet) 5,000 unit PO DAILY [facility] Last Admin: 12/27/20 09:43 Dose: 5,000 unit Documented by: Zinc Gluconate (Zinc Gluconate 50 Mg Tablet) 50 mg PO DAILY [facility] Last Admin: 12/27/20 08:59 Dose: 50 mg Documented by: Vitals/I&O/Wt Last Vital Signs Temp 98.7 F 12/28/20 06:55 Pulse 72 12/28/20 15:40 Resp 20 H 12/28/20 15:40 BP 117/63 12/28/20 12:00 Pulse Ox 92 12/28/20 15:40 12/28/20 12/28/20 12/28/20 06:59 14:59 22:59 Intake Total 400 / 3025 740 / 740 100 / 840 Output Total 750 / 4000 700 / 700 Balance -350 / -975 40 / 40 100 / 140 Weight last 48 hrs Weight 286 lb Physical Exam Narrative: EXAM NARRATIVE: General: alert, in mild respiratory distress HEENT: conj clear, EOMI, PERRL, mmm, Neck: supple, no meningismus Heme: no cervical LAP Pulmonary: Improving bilateral breath sounds with bibasilar crackles still present Cardiovascular: rrr, nl s1s2, no mrg Abdomen: soft, nt, nd, no r/g, bs+ Extremities: pulses +, 1+ pedal edema, no c/c : no CVA tenderness Skin: intact, no rash MSK: no back or neck pain Neurologic: grossly intact Urinary Catheter Management^: Patel: Cath Placed During This Visit: yes Reason for Continuing Indwelling Catheter: Accurate Measurement of Urinary Output in Critically Ill Patients Urinary Catheter Date of Insertion: 12/23/20 Urinary Catheter Time of Insertion: 09:30 Data : 12/28/20 12:25 12/28/20 03:38 Micro: Microbiology 12/26/20 20:34 Gram Stain - Final Sputum - Expectorated Sputum Sputum Culture - Preliminary 12/22/20 12:43 Blood Culture - Final Blood Coagulase negativ staphylococc 12/22/20 11:44 Blood Culture - Final Blood NO GROWTH AFTER 5 DAYS A&P Assessment and plan (1) Acute respiratory failure with hypoxia: Status: Acute (2) Pulmonary embolism associated with COVID-19: Status: Acute (3) Afib: Status: Acute Qualifiers: Atrial fibrillation type: unspecified chronic Qualified Code(s): I48.20 - Chronic atrial fibrillation, unspecified # Acute hypoxic respiratory failure due to bilateral PE and patient with recent COVID-19 infection last month #New onset A. fib with RVR #Bilateral pleural effusions likely due to reduced cardiac function in view of A. fib RVR versus pneumonia -Currently patient is requiring 32% FiO2 on 25 L high flow nasal cannula -can start titrating down as patient tolerates -ABG 7.4 /% -Overall net - 3.3 L since admission -we will change to Lasix 40 mg daily; -Held Diamox due to worsening LFTs -Significantly reduced bilateral pleural effusions -CTPA 12/22/2020: On admission: Small bilateral lower lobe pulmonary embolus extending from proximal lobar branches to the segmental branches. -Atrial fibrillation with rate control-converted back to sinus rhythm. Currently on metoprolol 50 every 8 and amiodarone 400 mg p.o. 3 times daily. Ca rdiology following -Currently on Lovenox for PE and A. fib -Echo 12/23/2020: Reported as technically very difficult study with normal LV size and systolic function with EF 70%. Dilated IVC. Recommended repeat echo with contrast once patient heart rate is better controlled. -Broaden antibiotics to vancomycin, imipenem and doxycycline to cover atypicals; complete antibiotics 7 days and discontinue. Recommendations conveyed to RN, hospitalist covering the patient Attestations Medical Necessity Statement*: Acute respiratory failure with hypoxia secondary to subsegmental pulmonary emboli, pulmonary edema due to A. fib RVR requiring ICU close monitoring Time Spent in Patient Care: Greater than 35 minutes (>than 50% of time spent in counselling and/or direct pt care on unit) . 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
[2020-12-29] VITALS (100 sets, daily range): BP systolic 91–129; BP diastolic 44–83; PULSE 62–77; RESP 15–42; TEMP 36.8–37; O2SAT 87–96
[2020-12-29 00:45] LABS: Hematocrit 31.7 % (37.0-47.0); Hemoglobin 9.3 g/dL (11.5-15.3)
[2020-12-29] MEDS: metoprolol tartrate 50 mg Tablet PO ×3 (01:58→16:05)
[2020-12-29 05:09] LABS: Basophils # 0.1 10^3/uL (0.0-0.1); Basophils % 0.4 %; Eosinophils # 0.3 10^3/uL (0.0-0.8); Eosinophils % 1.8 %; Hematocrit 32.2 % (37.0-47.0); Hemoglobin 9.6 g/dL (11.5-15.3); Lymphocytes # 2.4 10^3/uL (0.8-4.8); Lymphocytes % 15.6 %; Mean Corpuscular HGB Conc 29.8 g/dL (30.0-36.0); Mean Corpuscular Hemoglobin 27.4 pg (28.0-34.0); Mean Corpuscular Volume 91.7 fL (81-99); Mean Platelet Volume 9.9 fL (7.4-10.4); Monocytes # 1.4 10^3/uL (0.2-0.9); Monocytes % 8.9 %; Neutrophils # 11.02 10^3/uL (1.8-7.7); Neutrophils % 72.4 %; Nucleated Red Blood Cells % 0 %; Platelet Count 421 10^3/cmm (130-400); Red Blood Count 3.51 10^6/uL (4.1-5.3); Red Cell Distribution Width 14.1 % (12.1-15.1); White Blood Count 15.2 10^3/uL (4.0-10.0)
[2020-12-29 05:35] LABS: Alanine Aminotransferase 31 U/L (0-33); Albumin Level 2.5 g/dL (3.5-5.2); Alkaline Phosphatase 77 IU/L (35-105); Anion Gap 10.6 (5-19); Aspartate Amino Transferase 30 U/L (0-32); Blood Urea Nitrogen 19 mg/dL (8-23); C Reactive Protein 81.1 mg/L (0.0-4.9); Calcium 8.5 mg/dL (8.5-10.5); Carbon Dioxide 28 mmol/L (22-29); Chloride 103 mmol/L (98-107); Globulin 3.4 g/dL (1.3-4.6); Glucose 122 mg/dL (65-115); Magnesium 1.8 mg/dL (1.7-2.3); Osmolality Calculated 290 mOsm/kg (285-295); Phosphorus 3.2 mg/dL (2.5-4.5); Potassium 3.6 mmol/L (3.5-5.1); Sodium 138 mmol/L (136-145); Total Bilirubin 0.4 mg/dL (0.15-1.2); Total Protein 5.9 g/dL (6.6-8.7)
[2020-12-29 05:54] LABS: ABG PCO2 41.9 mmHg (35-45); ABG PH Result 7.46 (7.35-7.45); Arterial Blood Gas Hematocrit 29.9 % (37-47); Base Excess ABG 5.6 mmol/L (-2.0-2.0); Blood Gas Allen Test Pos; Blood Gas Operator Identificat JB; Blood Gas Sample Site Radial, left; Blood Gas Sample Type Arterial; Oxygen Device HAG; PO2 ABG 69.8 mmHg (80.0-100.0)
[2020-12-29 06:01] LABS: NT Pro B Type Natriuretic Pept 480 pg/mL (0-450); Procalcitonin 0.15 ng/mL (0-0.5)
--- NOTE | 2020-12-29 07:00 | XR_ITS ---
WS: [id number] Exam: XR chest 1V portable [id number] Date/Time of Exam: 12/29/2020 5:08 AM Reason For Exam: sob Comparison 12/27/2020 There is cardiac enlargement with bibasal pleural effusions and infiltrates. Effusion on the left has improved but has increased on the right. Heart size is unchanged. No pneumothorax. Monitoring leads superimpose the chest. XR/XR chest 1V portable [id number] IMPRESSION: 1. Cardiac enlargement with pulmonary vascular congestion and bibasal pleural e ffusions suggesting CHF. Increasing right-sided pleural effusion. Effusion on t he left has decreased. No other changes.
[2020-12-29] MEDS: amiodarone 200 mg Tablet 400 MG PO ×3 (07:44→23:09)
[2020-12-29] MEDS: sucralfate 1 gm Tablet PO ×4 (07:45→20:13)
[2020-12-29] MEDS: thiamine 100 mg Tablet PO (08:02)
[2020-12-29] MEDS: zinc gluconate 50 mg Tablet PO (08:02)
[2020-12-29] MEDS: FUROsemide 40 mg Tablet PO ×2 (08:02→17:52)
[2020-12-29] MEDS: potassium chloride oral liq 20 mEq/15 mL UDC 40 MEQ PO (08:03)
[2020-12-29] MEDS: pantoprazole DR 40 mg Tablet PO ×2 (08:03→17:52)
[2020-12-29] MEDS: cholecalciferol (vitamin D3) 5,000 unit Tablet 5000 UNIT PO (08:04)
[2020-12-29 09:17] LABS: Vancomycin Trough 20.8 ug/mL (10-15)
--- NOTE | 2020-12-29 11:01 | P.PN_ITS ---
Subjective Subjective: Interval history: Patient was examined this morning, she is in bed, tells me yesterday that she sat in a chair for a long period of time, she felt a bit winded yesterday, she feels a bit short of breath this morning, but overall is doing better, remains on high flow, we are working on weaning her to nasal cannula Medications: Reviewed: Yes Medication Review Details: Current Medications Acetaminophen (Acetaminophen 325 Mg Tablet) 650 mg PO Q6H PRN PRN Reason: MILD PAIN Last Admin: 12/25/20 00:40 Dose: 650 mg Documented by: Albuterol Sulfate (Albuterol 8 Gm Mdi) 2 puff INHALATION Q4H.RESPIRATORY PRN PRN Reason: SHORTNESS OF BREATH Last Admin: 12/23/20 23:14 Dose: 2 puff Documented by: Albuterol/Ipratropium (Ipratropium-Albuterol 3 Ml Neb) 3 ml INHALATION Q4H PRN PRN Reason: SHORTNESS OF BREATH Last Admin: 12/28/20 08:40 Dose: 3 ml Documented by: Alprazolam (Alprazolam 0.25 Mg Tablet) 0.125 mg PO TID PRN PRN Reason: ANXIETY Last Admin: 12/26/20 04:19 Dose: 0.125 mg Documented by: Amiodarone HCl (Amiodarone 200 Mg Tablet) 400 mg PO Q8H [facility] Last Admin: 12/28/20 07:41 Dose: 400 mg Documented by: Enoxaparin Sodium 100 mg/ (Enoxaparin Sodium 30 mg) 130 mg SUBCUT Q12H [facility] Last Admin: 12/28/20 05:35 Dose: 130 mg Documented by: Furosemide (Furosemide 40 Mg Tablet) 40 mg PO BID@08,16 [facility] Last Admin: 12/28/20 07:41 Dose: 40 mg Documented by: Guaifenesin/Dextromethorphan (Guaifenesin-Dextromethorphan Udc 10 Ml) 10 ml PO Q4H PRN PRN Reason: COUGH Last Admin: 12/27/20 13:08 Dose: 10 ml Documented by: Imipenem/Cilastatin Sodium 500 (mg/ Sodium Chloride) 100 mls @ 200 mls/hr IV Q6H [facility] Last Admin: 12/28/20 07:42 Dose: 200 mls/hr Documented by: Dexmedetomidine HCl 400 mcg/ (Sodium Chloride) 104 mls @ 0 mls/hr IV .Q0M [facility]; Protocol Last Titration: 12/24/20 15:30 Dose: Infused Documented by: Diltiazem HCl 125 mg/ Sodium (Chloride) 125 mls @ 0 mls/hr IV .Q0M [facility]; Protocol Last Titration: 12/26/20 19:43 Dose: 0 mg/hr, 0 mls/hr Documented by: Vancomycin/PEG/[place]/Lysine/Water (Vancocin) 1,500 mg in 300 mls @ 200 mls/hr IV Q12H [facility] Last Infusion: 12/27/20 23:05 Dose: Infused Documented by: Metoprolol Tartrate (Metoprolol Tartrate 50 Mg Tablet) 50 mg PO Q8H [facility] Last Admin: 12/28/20 00:40 Dose: Not Given Documented by: Morphine Sulfate (Morphine 4 Mg/Ml Sdv 1 Ml) 1 mg IVP Q4H PRN PRN Reason: SEVERE PAIN Last Admin: 12/27/20 10:23 Dose: 1 mg Documented by: Ondansetron HCl (Ondansetron 2 Mg/Ml Sdv 2 Ml) 4 mg IVP Q6H PRN PRN Reason: NAUSEA AND VOMITING Pantoprazole Sodium (Pantoprazole Dr 40 Mg Tablet) 40 mg PO BID [facility] Potassium Chloride (Potassium Chloride Oral Liq 20 Meq/15 Ml Udc) 40 meq PO DAILY [facility] Last Admin: 12/27/20 09:00 Dose: 40 meq Documented by: Sodium Chloride (Saline Nasal [place] 44ml Btl) 1 spray NASAL PRN PRN PRN Reason: DRYNESS Last Admin: 12/27/20 10:19 Dose: 1 appful Documented by: Sucralfate (Sucralfate 1 Gm Tablet) 1 gm PO AC&BEDTIME [facility] Thiamine Mononitrate (Thiamine 100 Mg Tablet) 100 mg PO DAILY [facility] Last Admin: 12/27/20 08:59 Dose: 100 mg Documented by: Vitamin D (Cholecalciferol (Vitamin D3) 5,000 Unit Tablet) 5,000 unit PO DAILY [facility] Last Admin: 12/27/20 09:43 Dose: 5,000 unit Documented by: Zinc Gluconate (Zinc Gluconate 50 Mg Tablet) 50 mg PO DAILY [facility] Last Admin: 12/27/20 08:59 Dose: 50 mg Documented by: Vitals/I&O/Wt Last Vital Signs Temp 98.2 F 12/29/20 08:00 Pulse 64 12/29/20 10:00 Resp 37 H 12/29/20 10:00 BP 125/83 12/29/20 09:00 Pulse Ox 96 12/29/20 10:00 12/28/20 12/29/20 12/29/20 22:59 06:59 14:59 Intake Total 825 / 1565 850 / 2415 350 / 350 Output Total 1075 / 1775 700 / 2475 Balance -250 / -210 150 / -60 350 / 350 Weight last 48 hrs Weight 128.82 kg Weight 129.274 kg Physical Exam Const: COMMON NORMALS: no acute distress and patient oriented x3 HENMT: COMMON NORMALS: normocephalic HEAD & SCALP: normocephalic Neck/C-Spine: COMMON NORMALS: no JVD Resp: COMMON NORMALS: normal respiratory effort, No retractions, No use of accessory muscles and clear to auscultation bilaterally AUSCULTATION: clear to auscultation bilaterally Cardio: COMMON NORMALS: no JVD, regular rate, regular rhythm, S1 normal heart sound present and S2 normal heart sound present RATE: regular rate RHYTHM: regular rhythm HEART SOUNDS: S1 normal heart sound present and S2 normal heart sound present GI: COMMON NORMALS: Normal to inspection, nondistended, normoactive bowel sounds present, Soft to palpation, non-tender, No hepatosplenomegaly present, no masses and no bruits PALPATION: Yes Soft to palpation and Yes No hepatosplenomegaly present Extremity: COMMON NORMALS: capillary refill normal, no clubbing, cyanosis or edema, no calf tenderness and no pedal edema Neuro: COMMON NORMALS: patient oriented x3 Psych: COMMON NORMALS: mental status grossly normal Urinary Catheter Management^: Patel: Cath Placed During This Visit: yes Reason for Continuing Indwelling Catheter: Accurate Measurement of Urinary Output in Critically Ill Patients Urinary Catheter Date of Insertion: 12/23/20 Urinary Catheter Time of Insertion: 09:30 Data : 12/29/20 04:31 12/29/20 04:31 Micro: Microbiology 12/26/20 20:34 Gram Stain - Final Sputum - Expectorated Sputum Sputum Culture - Final 12/23/20 17:05 Blood Culture - Final Blood NO GROWTH AFTER 5 DAYS 12/23/20 17:00 Blood Culture - Final Blood NO GROWTH AFTER 5 DAYS A&P Assessment and plan (1) Acute respiratory failure with hypoxia: Secondary to bilateral subsegmental pulmonary emboli, recent diagnosis of COVID-19 status post monoclonal antibody infusion, possible underlying pneumonia, diastolic CHF, A. fib with RVR Plan: -Continue to monitor in ICU, likely de-escalate tomorrow based on titration of high flow -Currently on high flow, titrate down -Heart rates are better controlled, converted back to normal sinus rhythm on metoprolol,, amiodarone, off Cardizem drip -Continue diuresis Lasix 40 mg p.o. twice daily -Currently on vancomycin, Primaxin -Continue therapeutic Lovenox -monitor hemoglobin as hemoglobin is down to 9.6, Hemoccult stool, iron levels low at 20, thus will start Protonix 40 twice daily and Carafate - -3.2 L since admission -Repeat blood cultures, sputum cultures, urine bacterial antigens all negative so far -Monitor respiratory status closely -Full code -Lovenox for DVT prophylaxis -Likely will discharge home with home health care if she can come off high flow Status: Acute (2) Pulmonary embolism associated with COVID-19: Status: Acute (3) CHF exacerbation: Status: Acute Qualifiers: Heart failure type: diastolic Qualified Code(s): I50.33 - Acute on chronic diastolic (congestive) heart failure (4) Atrial fibrillation with RVR: -Converted to normal sinus rhythm -On metoprolol 25 every 6h -Amiodarone 400 mg every 8h -Currently off Cardizem drip -Lovenox for DVT prophylaxis -Appreciate cardiology's input Status: Acute (5) Anemia: Hemoglobin 10.9, baseline is unknown Monitor hemoglobin as she is on full dose Lovenox Status: Acute Additional A&P Information 75-year-old female who was diagnosed with COVID-19 and received monoclonal antibodies mid-November who is presenting with worsening shortness of breath, fever, cough. Gram-positive bacteremia. Probably a contamination. Repeat cultures are negative. Bilateral subsegmental PE after recent COVID-19 diagnosis. Continue Lovenox full dose. Recent COVID-19. Received monoclonal antibodies. Bilateral pleural effusions. Probably very small and improved with diuresis. Continue close monitoring. Continue furosemide. Morbid obesity. CODE STATUS. Full code. The plan of care was discussed with the patient. She verbalized understanding and agreement. 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
[2020-12-29] MEDS: vancomycin 1,250 MG/250 ML PIGGYBACK 200 MG IV ×2 (11:03→23:30)
--- NOTE | 2020-12-29 12:09 | P.PN_ITS ---
Subjective Subjective: Interval history: -Clinically improving -Less shortness of breath and heart rate well controlled -On 32% FiO2 and 25 L high flow -Labs and imaging reviewed Medications: Reviewed: Yes Medication Review Details: Current Medications Acetaminophen (Acetaminophen 325 Mg Tablet) 650 mg PO Q6H PRN PRN Reason: MILD PAIN Last Admin: 12/25/20 00:40 Dose: 650 mg Documented by: Albuterol Sulfate (Albuterol 8 Gm Mdi) 2 puff INHALATION Q4H.RESPIRATORY PRN PRN Reason: SHORTNESS OF BREATH Last Admin: 12/23/20 23:14 Dose: 2 puff Documented by: Albuterol/Ipratropium (Ipratropium-Albuterol 3 Ml Neb) 3 ml INHALATION Q4H PRN PRN Reason: SHORTNESS OF BREATH Last Admin: 12/28/20 08:40 Dose: 3 ml Documented by: Alprazolam (Alprazolam 0.25 Mg Tablet) 0.125 mg PO TID PRN PRN Reason: ANXIETY Last Admin: 12/26/20 04:19 Dose: 0.125 mg Documented by: Amiodarone HCl (Amiodarone 200 Mg Tablet) 400 mg PO Q8H [facility] Last Admin: 12/28/20 07:41 Dose: 400 mg Documented by: Enoxaparin Sodium 100 mg/ (Enoxaparin Sodium 30 mg) 130 mg SUBCUT Q12H [facility] Last Admin: 12/28/20 05:35 Dose: 130 mg Documented by: Furosemide (Furosemide 40 Mg Tablet) 40 mg PO BID@08,16 [facility] Last Admin: 12/28/20 07:41 Dose: 40 mg Documented by: Guaifenesin/Dextromethorphan (Guaifenesin-Dextromethorphan Udc 10 Ml) 10 ml PO Q4H PRN PRN Reason: COUGH Last Admin: 12/27/20 13:08 Dose: 10 ml Documented by: Imipenem/Cilastatin Sodium 500 (mg/ Sodium Chloride) 100 mls @ 200 mls/hr IV Q6H [facility] Last Admin: 12/28/20 07:42 Dose: 200 mls/hr Documented by: Dexmedetomidine HCl 400 mcg/ (Sodium Chloride) 104 mls @ 0 mls/hr IV .Q0M [facility]; Protocol Last Titration: 12/24/20 15:30 Dose: Infused Documented by: Diltiazem HCl 125 mg/ Sodium (Chloride) 125 mls @ 0 mls/hr IV .Q0M [facility]; Protocol Last Titration: 12/26/20 19:43 Dose: 0 mg/hr, 0 mls/hr Documented by: Vancomycin/PEG/[place]/Lysine/Water (Vancocin) 1,500 mg in 300 mls @ 200 mls/hr IV Q12H [facility] Last Infusion: 12/27/20 23:05 Dose: Infused Documented by: Metoprolol Tartrate (Metoprolol Tartrate 50 Mg Tablet) 50 mg PO Q8H [facility] Last Admin: 12/28/20 00:40 Dose: Not Given Documented by: Morphine Sulfate (Morphine 4 Mg/Ml Sdv 1 Ml) 1 mg IVP Q4H PRN PRN Reason: SEVERE PAIN Last Admin: 12/27/20 10:23 Dose: 1 mg Documented by: Ondansetron HCl (Ondansetron 2 Mg/Ml Sdv 2 Ml) 4 mg IVP Q6H PRN PRN Reason: NAUSEA AND VOMITING Pantoprazole Sodium (Pantoprazole Dr 40 Mg Tablet) 40 mg PO BID [facility] Potassium Chloride (Potassium Chloride Oral Liq 20 Meq/15 Ml Udc) 40 meq PO DAILY [facility] Last Admin: 12/27/20 09:00 Dose: 40 meq Documented by: Sodium Chloride (Saline Nasal [place] 44ml Btl) 1 spray NASAL PRN PRN PRN Reason: DRYNESS Last Admin: 12/27/20 10:19 Dose: 1 appful Documented by: Sucralfate (Sucralfate 1 Gm Tablet) 1 gm PO AC&BEDTIME [facility] Thiamine Mononitrate (Thiamine 100 Mg Tablet) 100 mg PO DAILY [facility] Last Admin: 12/27/20 08:59 Dose: 100 mg Documented by: Vitamin D (Cholecalciferol (Vitamin D3) 5,000 Unit Tablet) 5,000 unit PO DAILY [facility] Last Admin: 12/27/20 09:43 Dose: 5,000 unit Documented by: Zinc Gluconate (Zinc Gluconate 50 Mg Tablet) 50 mg PO DAILY [facility] Last Admin: 12/27/20 08:59 Dose: 50 mg Documented by: Vitals/I&O/Wt Last Vital Signs Temp 98.2 F 12/29/20 08:00 Pulse 64 12/29/20 10:00 Resp 37 H 12/29/20 10:00 BP 125/83 12/29/20 09:00 Pulse Ox 96 12/29/20 10:00 12/28/20 12/29/20 12/29/20 22:59 06:59 14:59 Intake Total 825 / 1565 850 / 2415 350 / 350 Output Total 1075 / 1775 700 / 2475 Balance -250 / -210 150 / -60 350 / 350 Weight last 48 hrs Weight 284 lb Weight 285 lb Physical Exam Narrative: EXAM NARRATIVE: General: alert, in mild respiratory distress HEENT: conj clear, EOMI, PERRL, mmm, Neck: supple, no meningismus Heme: no cervical LAP Pulmonary: Improving bilateral breath sounds with bibasilar crackles still present Cardiovascular: rrr, nl s1s2, no mrg Abdomen: soft, nt, nd, no r/g, bs+ Extremities: pulses +, 1+ pedal edema, no c/c : no CVA tenderness Skin: intact, no rash MSK: no back or neck pain Neurologic: grossly intact Urinary Catheter Management^: Patel: Cath Placed During This Visit: yes Reason for Continuing Indwelling Catheter: Accurate Measurement of Urinary Output in Critically Ill Patients Urinary Catheter Date of Insertion: 12/23/20 Urinary Catheter Time of Insertion: 09:30 Data : 12/29/20 04:31 12/29/20 04:31 Micro: Microbiology 12/26/20 20:34 Gram Stain - Final Sputum - Expectorated Sputum Sputum Culture - Final 12/23/20 17:05 Blood Culture - Final Blood NO GROWTH AFTER 5 DAYS 12/23/20 17:00 Blood Culture - Final Blood NO GROWTH AFTER 5 DAYS A&P Assessment and plan (1) Acute respiratory failure with hypoxia: Status: Acute (2) Pulmonary embolism associated with COVID-19: Status: Acute (3) Afib: Status: Acute Qualifiers: Atrial fibrillation type: unspecified chronic Qualified Code(s): I48.20 - Chronic atrial fibrillation, unspecified # Acute hypoxic respiratory failure due to bilateral PE and patient with recent COVID-19 infection last month #New onset A. fib with RVR #Bilateral pleural effusions likely due to reduced cardiac function in view of A. fib RVR versus pneumonia -ABG 7.4 6/41/69/30/97% on 32% FiO2 on 25 L high flow nasal cannula -can start titrating down as patient tolerates -Overall net - 3.3 L since admission -Lasix 40 mg twice daily; Held Diamox and LFTs normalized ; - can try 1 dose Diamox 250 mg p.o. if patient goes into alkalosis -Significantly reduced bilateral pleural effusions -CTPA 12/22/2020: On admission: Small bilateral lower lobe pulmonary embolus extending from proximal lobar branches to the segmental branches. -Atrial fibrillation with rate control-converted back to sinus rhythm. Currently on metoprolol 50 every 8 and amiodarone 400 mg p.o. 3 times daily. Cardiology following -Currently on Lovenox for PE and A. fib -Echo 12/23/2020: Reported as technically very difficult study with normal LV size and systolic function with EF 70%. Dilated IVC. Recommended repeat echo with contrast once patient heart rate is better controlled. -Broaden antibiotics to vancomycin, imipenem and doxycycline to cover atypicals; complete antibiotics 7 days and discontinue. Recommendations conveyed to RN, hospitalist covering the patient Attestations Medical Necessity Statement*: Acute hypoxic respiratory failure due to chetan ateral subsegmental PE and CHF exacerbation in patient with A. fib RVR. Patient needs close input output monitoring and hemodynamic monitoring while titrating down her oxygen requirements. Time Spent in Patient Care: Greater than 35 minutes (>than 50% of time spent in counselling and/or direct pt care on unit) . Critical Care Time: Critical Care Time (min): 45 Coding Level of Care Code Established Pt Acute Director Of Cloud Services for [facility] Fwd Patient Type Established History Comprehensive Exam Comprehensive Medical Decision Making High Complexity Diagnoses Acute respiratory failure with hypoxia J96.01 Pulmonary embolism associated with COVID-19 U07.1; I26.99 Afib I48.20 Atrial fibrillation type: unspecified chronic Time Spent (min) 45
[2020-12-29] MEDS: guaiFENesin-dextromethorphan UDC 10 mL PO (15:13)
[2020-12-29] MEDS: benzonatate 100 mg Capsule PO (16:50)
--- NOTE | 2020-12-29 17:11 | PM.PN ---
Subjective Subjective: Interval history: She feels better, Now on O2 2L via [place] Medications: Reviewed: Yes Vitals/I&O/Wt Last Vital Signs Temp 98.5 F 12/29/20 16:00 Pulse 72 12/29/20 16:00 Resp 17 12/29/20 16:00 BP 121/72 12/29/20 16:00 Pulse Ox 94 12/29/20 16:00 12/29/20 12/29/20 12/29/20 06:59 14:59 22:59 Intake Total 850 / 2415 1100 / 1100 100 / 1200 Output Total 700 / 2475 1300 / 1300 Balance 150 / -60 1100 / 1100 -1200 / -100 Weight last 48 hrs Weight 284 lb Weight 285 lb Physical Exam Narrative: EXAM NARRATIVE: GENERAL: Obese woman lying in bed in some respiratory distress. HEENT: Pupils equal round reactive to light. No pallor or icterus. NECK: Short thick neck, unable to appreciate JVD. CARDIOVASCULAR SYSTEM: S1-S2 regular. no S3 or S4 present. No murmur rubs or gallops. RESPIRATORY SYSTEM: Coarse bilateral breath sounds absent at the bases. ABDOMEN: Soft, nontender and nondistended. Normal bowel sounds present. EXTREMITIES: No cyanosis or clubbing. No edema. No signs of chronic venous insufficiency. SUPERVISOR IN CIRCUIT TESTING: Patient is alert oriented ?3. No focal neurological deficits. Urinary Catheter Management^: Patel: Cath Placed During This Visit: yes Reason for Continuing Indwelling Catheter: Accurate Measurement of Urinary Output in Critically Ill Patients Urinary Catheter Date of Insertion: 12/23/20 Urinary Catheter Time of Insertion: 09:30 Data : 12/29/20 04:31 12/29/20 04:31 Micro: Microbiology 12/26/20 20:34 Gram Stain - Final Sputum - Expectorated Sputum Sputum Culture - Final 12/23/20 17:05 Blood Culture - Final Blood NO GROWTH AFTER 5 DAYS 12/23/20 17:00 Blood Culture - Final Blood NO GROWTH AFTER 5 DAYS A&P Assessment and plan (1) Acute respiratory failure with hypoxia: She is currently on oxygen via HFNC -likely multifactorial in setting of decompensation of heart failure with preserved ejection fraction, pneumonia (possible bacterial pneumonia with recent history of COVID-19 pneumonia) -Repeat COVID-19 PCR negative. Status: Acute (2) CHF exacerbation: Being diuresed per pulmonary and primary team. Status: Acute Qualifiers: Heart failure type: diastolic Qualified Code(s): I50.33 - Acute on chronic diastolic (congestive) heart failure (3) Afib: Paroxysmal atrial fibrillation, converted back to sinus rhythm. -Metoprolol tartrate 50 mg q 8h. Continue therapeutic Lovenox. -change to amiodarone 400 BIDtomorrow. Status: Acute Qualifiers: Atrial fibrillation type: unspecified chronic Qualified Code(s): I48.20 - Chronic atrial fibrillation, unspecified (4) Pulmonary embolism associated with COVID-19: -Currently on therapeutic Lovenox Status: Acute Additional A&P Information Pneumonia : On antibiotics as per primary team. Normocytic anemia Bilateral small pleural effusion Small pericardial effusion: Thrombocytosis: resolved Elevated D-dimer Hypomagnesemia: Replaced Elevated liver enzymes: f/u CMP in am Hypoalbuminemia Thank you for allowing me to participate in patient's care. Please feel free to call with questions or concerns. Attestations Medical Necessity Statement*: As per primary team Time Spent in Patient Care: 16 - 35 minutes (>than 50% of time spent in counselling and/or direct pt care on unit). Coding Level of Care Code Acute Rose Grader for Real Fwrichard Diagnoses Acute respiratory failure with hypoxia J96.01 CHF exacerbation I50.33 Heart failure type: diastolic Afib I48.20 Atrial fibrillation type: unspecified chronic Pulmonary embolism associated with COVID-19 U07.1; I26.99
[2020-12-30] VITALS (23 sets, daily range): BP systolic 99–141; BP diastolic 48–79; PULSE 63–78; RESP 17–39; TEMP 36.7–37.1; O2SAT 93–96
[2020-12-30] MEDS: metoprolol tartrate 50 mg Tablet PO ×2 (01:01→09:46)
[2020-12-30 04:38] LABS: Basophils # 0.1 10^3/uL (0.0-0.1); Basophils % 0.4 %; Eosinophils # 0.2 10^3/uL (0.0-0.8); Eosinophils % 1.5 %; Hematocrit 33.2 % (37.0-47.0); Hemoglobin 9.9 g/dL (11.5-15.3); Lymphocytes # 2.2 10^3/uL (0.8-4.8); Lymphocytes % 13.9 %; Mean Corpuscular HGB Conc 29.8 g/dL (30.0-36.0); Mean Corpuscular Hemoglobin 27.5 pg (28.0-34.0); Mean Corpuscular Volume 92.2 fL (81-99); Monocytes # 1.5 10^3/uL (0.2-0.9); Monocytes % 9.7 %; Neutrophils % 73.7 %; Nucleated Red Blood Cells % 0 %; Platelet Count 450 10^3/cmm (130-400); Red Cell Distribution Width 13.9 % (12.1-15.1); White Blood Count 15.8 10^3/uL (4.0-10.0)
[2020-12-30 04:51] LABS: ABG PCO2 46.1 mmHg (35-45); ABG PH Result 7.44 (7.35-7.45); Arterial Blood Gas Hematocrit 31.9 % (37-47); Base Excess ABG 6.1 mmol/L (-2.0-2.0); Blood Gas Sample Type Arterial; HCO3 ABG 31.1 mmol/L (22-26); PO2 ABG 70.2 mmHg (80.0-100.0)
[2020-12-30 04:52] LABS: Blood Gas Operator Identificat HARKR; Blood Gas Sample Site Brachial, right; Oxygen Device NC
[2020-12-30 05:04] LABS: Alanine Aminotransferase 29 U/L (0-33); Albumin Level 2.7 g/dL (3.5-5.2); Alkaline Phosphatase 87 IU/L (35-105); Anion Gap 12.5 (5-19); Aspartate Amino Transferase 25 U/L (0-32); Blood Urea Nitrogen 15 mg/dL (8-23); C Reactive Protein 74.4 mg/L (0.0-4.9); Calcium 8.7 mg/dL (8.5-10.5); Carbon Dioxide 30 mmol/L (22-29); Chloride 101 mmol/L (98-107); Globulin 3.6 g/dL (1.3-4.6); Glucose 134 mg/dL (65-115); Magnesium 1.8 mg/dL (1.7-2.3); Osmolality Calculated 293 mOsm/kg (285-295); Phosphorus 3.3 mg/dL (2.5-4.5); Potassium 3.5 mmol/L (3.5-5.1); Sodium 140 mmol/L (136-145); Total Bilirubin 0.4 mg/dL (0.15-1.2); Total Protein 6.3 g/dL (6.6-8.7)
[2020-12-30] MEDS: FUROsemide 40 mg Tablet PO (06:01)
[2020-12-30 06:03] LABS: NT Pro B Type Natriuretic Pept 379 pg/mL (0-450); Procalcitonin 0.13 ng/mL (0-0.5)
--- NOTE | 2020-12-30 07:00 | XR_ITS ---
WS: [id number] Exam: XR chest 1V portable [id number] Date/Time of Exam: 12/30/2020 5:09 AM Reason For Exam: sob Comparison 12/29/2020. Bibasal infiltrates and pleural effusions show little change since prior study. The heart is enlarged but unchanged in size. Pulmonary vascularity is increased. XR/XR chest 1V portable [id number] IMPRESSION: 1. Chest radiograph showing very little change since last study.
[2020-12-30] MEDS: sucralfate 1 gm Tablet PO ×4 (07:59→21:13)
[2020-12-30] MEDS: amiodarone 200 mg Tablet 400 MG PO ×2 (07:59→19:56)
[2020-12-30] MEDS: thiamine 100 mg Tablet PO (09:46)
[2020-12-30] MEDS: zinc gluconate 50 mg Tablet PO (09:46)
[2020-12-30] MEDS: pantoprazole DR 40 mg Tablet PO ×2 (09:46→18:16)
[2020-12-30] MEDS: potassium chloride oral liq 20 mEq/15 mL UDC 60 MEQ PO (09:46)
[2020-12-30] MEDS: cholecalciferol (vitamin D3) 5,000 unit Tablet 5000 UNIT PO (09:48)
--- NOTE | 2020-12-30 10:15 | PC.CHAP ---
Pastoral Care Encounter/Spiritual Assessment Type of Contact [] Declined physical therapy aide visit [] Patient/Family/Request visit [] Outpatient visit [] Follow-up visit [] Physician referral [] Code/Alert [x] Routine visit [] Staff referral [] Actively dying [] Patient sleeping [] Family support [] [] Out of room [] Palliative care [] [] Receiving care in room [] Pre-surgical visit [] Trauma [] Long length of stay [x] ICU visit [] Other: Relational/Emotional Strength [] Patient feels connected with others/family/visitors/staff [] Distress [] Loneliness/isolation [] Abandonment Spirituality of Patient [x] Person of Tonya [] Attends Spiritism of their Tonya [] Believes in Prayer [] Reads Bible or Hoahaoism materials [] There are Spiritual issues to be addressed Search Planner Interventions [x] Prayer [x] Active listening [x] Non-anxious presence [x] Spiritual/emotional support [] Crisis/trauma care [] Spiritual counseling [] Bereavement support [] Provided bereavement packet [] Provided Bible/devotional materials [] Provided toy/stuffed animal, coloring book to patient or family member [] Provided Communion [] Anointing/[place] [] Salvation [x] Completed spiritual assessment [] Other: Impact on Illness or Injury [] Angry [] Fearful [] Anxious [] Often cries [] Exhaustion [] Unable to work [] Unable to attend yazidi [] Unable to walk/stand [] Unable to read [] Unable to drive [] Unable to eat/drink [] Unable to sleep [] Unable to be with family [] Patient intubated [] Other: Summary patient setting up in chair... Time spent with patient 10 min
--- NOTE | 2020-12-30 10:54 | P.PN_ITS ---
Subjective Subjective: Interval history: Patient is sitting out of bed to chair and breathing comfortably on 2 L nasal cannula Denied any new complaints Medications: Reviewed: Yes Medication Review Details: Current Medications Acetaminophen (Acetaminophen 325 Mg Tablet) 650 mg PO Q6H PRN PRN Reason: MILD PAIN Last Admin: 12/25/20 00:40 Dose: 650 mg Documented by: Albuterol Sulfate (Albuterol 8 Gm Mdi) 2 puff INHALATION Q4H.RESPIRATORY PRN PRN Reason: SHORTNESS OF BREATH Last Admin: 12/23/20 23:14 Dose: 2 puff Documented by: Albuterol/Ipratropium (Ipratropium-Albuterol 3 Ml Neb) 3 ml INHALATION Q4H PRN PRN Reason: SHORTNESS OF BREATH Last Admin: 12/28/20 08:40 Dose: 3 ml Documented by: Alprazolam (Alprazolam 0.25 Mg Tablet) 0.125 mg PO TID PRN PRN Reason: ANXIETY Last Admin: 12/26/20 04:19 Dose: 0.125 mg Documented by: Amiodarone HCl (Amiodarone 200 Mg Tablet) 400 mg PO Q8H [facility] Last Admin: 12/28/20 07:41 Dose: 400 mg Documented by: Enoxaparin Sodium 100 mg/ (Enoxaparin Sodium 30 mg) 130 mg SUBCUT Q12H [facility] Last Admin: 12/28/20 05:35 Dose: 130 mg Documented by: Furosemide (Furosemide 40 Mg Tablet) 40 mg PO BID@08,16 [facility] Last Admin: 12/28/20 07:41 Dose: 40 mg Documented by: Guaifenesin/Dextromethorphan (Guaifenesin-Dextromethorphan Udc 10 Ml) 10 ml PO Q4H PRN PRN Reason: COUGH Last Admin: 12/27/20 13:08 Dose: 10 ml Documented by: Imipenem/Cilastatin Sodium 500 (mg/ Sodium Chloride) 100 mls @ 200 mls/hr IV Q6H [facility] Last Admin: 12/28/20 07:42 Dose: 200 mls/hr Documented by: Dexmedetomidine HCl 400 mcg/ (Sodium Chloride) 104 mls @ 0 mls/hr IV .Q0M [facility] DE JESUS; Protocol Last Titration: 12/24/20 15:30 Dose: Infused Documented by: Diltiazem HCl 125 mg/ Sodium (Chloride) 125 mls @ 0 mls/hr IV .Q0M [facility]; Protocol Last Titration: 12/26/20 19:43 Dose: 0 mg/hr, 0 mls/hr Documented by: Vancomycin/PEG/NADA/Lysine/Water (Vancocin) 1,500 mg in 300 mls @ 200 mls/hr IV Q12H [facility] Last Infusion: 12/27/20 23:05 Dose: Infused Documented by: Metoprolol Tartrate (Metoprolol Tartrate 50 Mg Tablet) 50 mg PO Q8H [facility] Last Admin: 12/28/20 00:40 Dose: Not Given Documented by: Morphine Sulfate (Morphine 4 Mg/Ml Sdv 1 Ml) 1 mg IVP Q4H PRN PRN Reason: SEVERE PAIN Last Admin: 12/27/20 10:23 Dose: 1 mg Documented by: Ondansetron HCl (Ondansetron 2 Mg/Ml Sdv 2 Ml) 4 mg IVP Q6H PRN PRN Reason: NAUSEA AND VOMITING Pantoprazole Sodium (Pantoprazole Dr 40 Mg Tablet) 40 mg PO BID [facility] Potassium Chloride (Potassium Chloride Oral Liq 20 Meq/15 Ml Udc) 40 meq PO DAILY [facility] Last Admin: 12/27/20 09:00 Dose: 40 meq Documented by: Sodium Chloride (Saline Nasal [place] 44ml Btl) 1 spray NASAL PRN PRN PRN Reason: DRYNESS Last Admin: 12/27/20 10:19 Dose: 1 appful Documented by: Sucralfate (Sucralfate 1 Gm Tablet) 1 gm PO AC&BEDTIME [facility] Thiamine Mononitrate (Thiamine 100 Mg Tablet) 100 mg PO DAILY [facility] Last Admin: 12/27/20 08:59 Dose: 100 mg Documented by: Vitamin D (Cholecalciferol (Vitamin D3) 5,000 Unit Tablet) 5,000 unit PO DAILY [facility] Last Admin: 12/27/20 09:43 Dose: 5,000 unit Documented by: Zinc Gluconate (Zinc Gluconate 50 Mg Tablet) 50 mg PO DAILY [facility] Last Admin: 12/27/20 08:59 Dose: 50 mg Documented by: Vitals/I&O/Wt Last Vital Signs Temp 98.3 F 12/30/20 02:00 Pulse 78 12/30/20 10:00 Resp 22 H 12/30/20 10:00 BP 111/60 12/30/20 10:00 Pulse Ox 95 12/30/20 10:00 12/29/20 12/30/20 12/30/20 22:59 06:59 14:59 Intake Total 320 / 1420 838 / 2258 120 / 120 Output Total 2550 / 2550 1550 / 4100 1800 / 1800 Balance -2230 / -1130 -712 / -1842 -1680 / -1680 Weight last 48 hrs Weight 284 lb Weight 284 lb Weight 285 lb Physical Exam Narrative: EXAM NARRATIVE: General: Obese elderly female sitting comfortably in chair. HEENT: conj clear, EOMI, PERRL, mmm, Neck: supple, no meningismus Heme: no cervical LAP Pulmonary: Improving bilateral breath sounds with mild bibasilar crackles still present Cardiovascular: rrr, nl s1s2, no mrg Abdomen: soft, nt, nd, no r/g, bs+ Extremities: pulses +, 1+ pedal edema, no c/c : no CVA tenderness Skin: intact, no rash MSK: no back or neck pain Neurologic: grossly intact Urinary Catheter Management^: Patel: Cath Placed During This Visit: yes Reason for Continuing Indwelling Catheter: Accurate Measurement of Urinary Output in Critically Ill Patients Urinary Catheter Date of Insertion: 12/23/20 Urinary Catheter Time of Insertion: 09:30 Data : 12/30/20 03:48 12/30/20 03:48 Micro: Microbiology 12/30/20 08:45 Occult Blood (FIT) - Final Stool 12/26/20 20:34 Gram Stain - Final Sputum - Expectorated Sputum Sputum Culture - Final A&P Assessment and plan (1) Acute respiratory failure with hypoxia: Status: Acute (2) Pulmonary embolism associated with COVID-19: Status: Acute (3) Afib: Status: Acute Qualifiers: Atrial fibrillation type: unspecified chronic Qualified Code(s): I48.20 - Chronic atrial fibrillation, unspecified # Acute hypoxic respiratory failure due to bilateral PE and patient with recent COVID-19 infection last month #New onset A. fib with RVR #Bilateral pleural effusions likely due to reduced cardiac function in view of A. fib RVR versus pneumonia -ABG 7.4/46/70/31/86% on 2 L nasal cannula-can start titrating down as patient tolerates -Chest x-ray today bibasilar infiltrates and pleural effusions on lateral change since prior study. Heart is enlarged but unchanged in sign. Pulmonary vascularity is increased. -Encourage incentive spirometry and BiPAP at nighttime -Overall net -7 L since admission -We will decrease Lasix to 40 mg once daily -Significantly reduced bilateral pleural effusions -CTPA 12/22/2020: On admission: Small bilateral lower lobe pulmonary embolus extending from proximal lobar branches to the segmental branches. -Atrial fibrillation with rate control-converted back to sinus rhythm. Currently on metoprolol 50 every 8 and amiodarone 400 mg p.o. 3 times daily. Cardiology following -Currently on Lovenox for PE and A. fib -Echo 12/23/2020: Reported as technically very difficult study with normal LV size and systolic function with EF 70%. Dilated IVC. Recommended repeat echo with contrast once patient heart rate is better controlled. -Broaden antibiotics to vancomycin, imipenem and doxycycline to cover atypicals; complete antibiotics 7 days and discontinue. Recommendations conveyed to RN, hospitalist covering the patient Attestations Medical Necessity Statement*: Acute hypoxic respiratory failure due to bilateral PE and pleural effusions and patient with A. fib RVR-improving. Consider transferring to medical floor. Time Spent in Patient Care: Greater than 35 minutes (>than 50% of time spent in counselling and/or direct pt care on unit) . Critical Care Time: Critical Care Time (min): 45 Coding Level of Care Code Established Pt Acute Paint Grinder for g Fwd Patient Type Established History Comprehensive Exam Comprehensive Medical Decision Making High Complexity Diagnoses Acute respiratory failure with hypoxia J96.01 Pulmonary embolism associated with COVID-19 U07.1; I26.99 Afib I48.20 Atrial fibrillation type: unspecified chronic Time Spent (min) 45
[2020-12-30] MEDS: vancomycin 1,250 MG/250 ML PIGGYBACK 200 MG IV (11:36)
--- NOTE | 2020-12-30 11:39 | P.PN_ITS ---
Subjective Subjective: Interval history: She is doing better. On Oxygen via [place]. 0No events on telemetry. Medications: Reviewed: Yes Medication Review Details: Current Medications Acetaminophen (Acetaminophen 325 Mg Tablet) 650 mg PO Q6H PRN PRN Reason: MILD PAIN Last Admin: 12/25/20 00:40 Dose: 650 mg Documented by: Albuterol Sulfate (Albuterol 8 Gm Mdi) 2 puff INHALATION Q4H.RESPIRATORY PRN PRN Reason: SHORTNESS OF BREATH Last Admin: 12/23/20 23:14 Dose: 2 puff Documented by: Albuterol/Ipratropium (Ipratropium-Albuterol 3 Ml Neb) 3 ml INHALATION Q4H PRN PRN Reason: SHORTNESS OF BREATH Last Admin: 12/28/20 19:49 Dose: 3 ml Documented by: Alprazolam (Alprazolam 0.25 Mg Tablet) 0.125 mg PO TID PRN PRN Reason: ANXIETY Last Admin: 12/26/20 04:19 Dose: 0.125 mg Documented by: Amiodarone HCl (Amiodarone 200 Mg Tablet) 400 mg PO Q8H [facility] Last Admin: 12/30/20 07:59 Dose: 400 mg Documented by: Benzonatate (Benzonatate 100 Mg Capsule) 100 mg PO TID PRN PRN Reason: COUGH Last Admin: 12/29/20 16:50 Dose: 100 mg Documented by: Enoxaparin Sodium 100 mg/ (Enoxaparin Sodium 30 mg) 130 mg SUBCUT Q12H [facility] Last Admin: 12/30/20 06:01 Dose: 130 mg Documented by: Furosemide (Furosemide 40 Mg Tablet) 40 mg PO DAILY [facility] Guaifenesin/Dextromethorphan (Guaifenesin-Dextromethorphan Udc 10 Ml) 10 ml PO Q4H PRN PRN Reason: COUGH Last Admin: 12/29/20 15:13 Dose: 10 ml Documented by: Imipenem/Cilastatin Sodium 500 (mg/ Sodium Chloride) 100 mls @ 200 mls/hr IV Q6H [facility] Last Admin: 12/30/20 07:58 Dose: 200 mls/hr Documented by: Vancomycin/PEG/NADA/Lysine/Water (Vancocin) 1,250 mg in 250 mls @ 200 mls/hr IV Q12H [facility] Last Admin: 12/30/20 11:36 Dose: 200 mls/hr Documented by: Metoprolol Tartrate (Metoprolol Tartrate 50 Mg Tablet) 50 mg PO Q8H [facility] Last Admin: 12/30/20 09:46 Dose: 50 mg Documented by: Morphine Sulfate (Morphine 4 Mg/Ml Sdv 1 Ml) 1 mg IVP Q4H PRN PRN Reason: SEVERE PAIN Last Admin: 12/27/20 10:23 Dose: 1 mg Documented by: Ondansetron HCl (Ondansetron 2 Mg/Ml Sdv 2 Ml) 4 mg IVP Q6H PRN PRN Reason: NAUSEA AND VOMITING Pantoprazole Sodium (Pantoprazole Dr 40 Mg Tablet) 40 mg PO BID [facility] Last Admin: 12/30/20 09:46 Dose: 40 mg Documented by: Potassium Chloride (Potassium Chloride Oral Liq 20 Meq/15 Ml Udc) 60 meq PO DAILY [facility] Last Admin: 12/30/20 09:46 Dose: 60 meq Documented by: Sodium Chloride (Saline Nasal [place] 44ml Btl) 1 spray NASAL PRN PRN PRN Reason: DRYNESS Last Admin: 12/27/20 10:19 Dose: 1 appful Documented by: Sucralfate (Sucralfate 1 Gm Tablet) 1 gm PO AC&BEDTIME [facility] Last Admin: 12/30/20 11:36 Dose: 1 gm Documented by: Thiamine Mononitrate (Thiamine 100 Mg Tablet) 100 mg PO DAILY [facility] Last Admin: 12/30/20 09:46 Dose: 100 mg Documented by: Vitamin D (Cholecalciferol (Vitamin D3) 5,000 Unit Tablet) 5,000 unit PO DAILY [facility] Last Admin: 12/30/20 09:48 Dose: 5,000 unit Documented by: Zinc Gluconate (Zinc Gluconate 50 Mg Tablet) 50 mg PO DAILY [facility] Last Admin: 12/30/20 09:46 Dose: 50 mg Documented by: Vitals/I&O/Wt Last Vital Signs Temp 98.3 F 12/30/20 02:00 Pulse 78 12/30/20 10:00 Resp 22 H 12/30/20 10:00 BP 111/60 12/30/20 10:00 Pulse Ox 95 12/30/20 10:00 12/29/20 12/30/20 12/30/20 22:59 06:59 14:59 Intake Total 320 / 1420 838 / 2258 120 / 120 Output Total 2550 / 2550 1550 / 4100 1800 / 1800 Balance -2230 / -1130 -712 / -1842 -1680 / -1680 Weight last 48 hrs Weight 284 lb Weight 284 lb Weight 285 lb Physical Exam Narrative: EXAM NARRATIVE: GENERAL: Obese woman lying in bed in some respiratory distress. HEENT: Pupils equal round reactive to light. No pallor or icterus. NECK: Short thick neck, unable to appreciate JVD. CARDIOVASCULAR SYSTEM: S1-S2 regular. no S3 or S4 present. No murmur rubs or gallops. RESPIRATORY SYSTEM: Coarse bilateral breath sounds absent at the bases. ABDOMEN: Soft, nontender and nondistended. Normal bowel sounds present. EXTREMITIES: No cyanosis or clubbing. No edema. No signs of chronic venous insufficiency. ETHANOL OPERATOR: Patient is alert oriented ?3. No focal neurological deficits. Urinary Catheter Management^: Patel: Cath Placed During This Visit: yes Reason for Continuing Indwelling Catheter: Accurate Measurement of Urinary Output in Critically Ill Patients Urinary Catheter Date of Insertion: 12/23/20 Urinary Catheter Time of Insertion: 09:30 Data : 12/30/20 03:48 12/30/20 03:48 Micro: Microbiology 12/30/20 08:45 Occult Blood (FIT) - Final Stool 12/26/20 20:34 Gram Stain - Final Sputum - Expectorated Sputum Sputum Culture - Final A&P Assessment and plan (1) Acute respiratory failure with hypoxia: She is currently on oxygen via [place] -likely multifactorial in setting of decompensation of heart failure with preserved ejection fraction, pneumonia (possible bacterial pneumonia with recent history of COVID-19 pneumonia) -Repeat COVID-19 PCR negative. Status: Acute (2) CHF exacerbation: LOS -7L, Being diuresed per pulmonary and primary team. Status: Acute Qualifiers: Heart failure type: diastolic Qualified Code(s): I50.33 - Acute on chronic diastolic (congestive) heart failure (3) Afib: Paroxysmal atrial fibrillation, converted back to sinus rhythm. -Metoprolol tartrate 75 mg BID. May decrease to 50 mg BID, if BP is a concern -May change to Eliquis 5 mg BID. -change to amiodarone 400 BID for 3 days then 200 mg BID x 1 week and then 200 mg daily . -Patient will be seen as needed. Please feel free to call with questions or concerns Status: Acute Qualifiers: Atrial fibrillation type: unspecified chronic Qualified Code(s): I48.20 - Chronic atrial fibrillation, unspecified (4) Pulmonary embolism associated with COVID-19: -Currently on therapeutic Lovenox Status: Acute Additional A&P Information Pneumonia : On antibiotics as per primary team. Normocytic anemia Bilateral small pleural effusion Small pericardial effusion: unchanged on f/u echo Thrombocytosis: resolved Elevated D-dimer Hypomagnesemia: Replaced Elevated liver enzymes: resolved Hypoalbuminemia Thank you for allowing me to participate in patient's care. Please feel free to call with questions or concerns. Attestations Medical Necessity Statement*: As per primary team Time Spent in Patient Care: 16 - 35 minutes (>than 50% of time spent in counselling and/or direct pt care on unit) . Coding Level of Care Code Acute Illusionist for Real Lennon Diagnoses Acute respiratory failure with hypoxia J96.01 CHF exacerbation I50.33 Heart failure type: diastolic Afib I48.20 Atrial fibrillation type: unspecified chronic Pulmonary embolism associated with COVID-19 U07.1; I26.99
--- NOTE | 2020-12-30 11:41 | PM.PN ---
Subjective Subjective: Interval history: Patient is sitting out of bed to chair and breathing comfortably on 2 L nasal cannula Denied any new complaints Medications: Reviewed: Yes Medication Review Details: Current Medications Acetaminophen (Acetaminophen 325 Mg Tablet) 650 mg PO Q6H PRN PRN Reason: MILD PAIN Last Admin: 12/25/20 00:40 Dose: 650 mg Documented by: Albuterol Sulfate (Albuterol 8 Gm Mdi) 2 puff INHALATION Q4H.RESPIRATORY PRN PRN Reason: SHORTNESS OF BREATH Last Admin: 12/23/20 23:14 Dose: 2 puff Documented by: Albuterol/Ipratropium (Ipratropium-Albuterol 3 Ml Neb) 3 ml INHALATION Q4H PRN PRN Reason: SHORTNESS OF BREATH Last Admin: 12/28/20 08:40 Dose: 3 ml Documented by: Alprazolam (Alprazolam 0.25 Mg Tablet) 0.125 mg PO TID PRN PRN Reason: ANXIETY Last Admin: 12/26/20 04:19 Dose: 0.125 mg Documented by: Amiodarone HCl (Amiodarone 200 Mg Tablet) 400 mg PO Q8H [facility] DE JES[facility] Last Admin: 12/28/20 07:41 Dose: 400 mg Documented by: Enoxaparin Sodium 100 mg/ (Enoxaparin Sodium 30 mg) 130 mg SUBCUT Q12H [facility] Last Admin: 12/28/20 05:35 Dose: 130 mg Documented by: Furosemide (Furosemide 40 Mg Tablet) 40 mg PO BID@08,16 [facility] Last Admin: 12/28/20 07:41 Dose: 40 mg Documented by: Guaifenesin/Dextromethorphan (Guaifenesin-Dextromethorphan Udc 10 Ml) 10 ml PO Q4H PRN PRN Reason: COUGH Last Admin: 12/27/20 13:08 Dose: 10 ml Documented by: Imipenem/Cilastatin Sodium 500 (mg/ Sodium Chloride) 100 mls @ 200 mls/hr IV Q6H [facility] Last Admin: 12/28/20 07:42 Dose: 200 mls/hr Documented by: Dexmedetomidine HCl 400 mcg/ (Sodium Chloride) 104 mls @ 0 mls/hr IV .Q0M [facility] DE JESUS; Protocol Last Titration: 12/24/20 15:30 Dose: Infused Documented by: Diltiazem HCl 125 mg/ Sodium (Chloride) 125 mls @ 0 mls/hr IV .Q0M [facility]; Protocol Last Titration: 12/26/20 19:43 Dose: 0 mg/hr, 0 mls/hr Documented by: Vancomycin/PEG/NADA/Lysine/Water (Vancocin) 1,500 mg in 300 mls @ 200 mls/hr IV Q12H [facility] Last Infusion: 12/27/20 23:05 Dose: Infused Documented by: Metoprolol Tartrate (Metoprolol Tartrate 50 Mg Tablet) 50 mg PO Q8H [facility] Last Admin: 12/28/20 00:40 Dose: Not Given Documented by: Morphine Sulfate (Morphine 4 Mg/Ml Sdv 1 Ml) 1 mg IVP Q4H PRN PRN Reason: SEVERE PAIN Last Admin: 12/27/20 10:23 Dose: 1 mg Documented by: Ondansetron HCl (Ondansetron 2 Mg/Ml Sdv 2 Ml) 4 mg IVP Q6H PRN PRN Reason: NAUSEA AND VOMITING Pantoprazole Sodium (Pantoprazole Dr 40 Mg Tablet) 40 mg PO BID [facility] Potassium Chloride (Potassium Chloride Oral Liq 20 Meq/15 Ml Udc) 40 meq PO DAILY [facility] Last Admin: 12/27/20 09:00 Dose: 40 meq Documented by: Sodium Chloride (Saline Nasal [place] 44ml Btl) 1 spray NASAL PRN PRN PRN Reason: DRYNESS Last Admin: 12/27/20 10:19 Dose: 1 appful Documented by: Sucralfate (Sucralfate 1 Gm Tablet) 1 gm PO AC&BEDTIME [facility] Thiamine Mononitrate (Thiamine 100 Mg Tablet) 100 mg PO DAILY [facility] Last Admin: 12/27/20 08:59 Dose: 100 mg Documented by: Vitamin D (Cholecalciferol (Vitamin D3) 5,000 Unit Tablet) 5,000 unit PO DAILY [facility] Last Admin: 12/27/20 09:43 Dose: 5,000 unit Documented by: Zinc Gluconate (Zinc Gluconate 50 Mg Tablet) 50 mg PO DAILY [facility] Last Admin: 12/27/20 08:59 Dose: 50 mg Documented by: Vitals/I&O/Wt Last Vital Signs Temp 98.3 F 12/30/20 02:00 Pulse 78 12/30/20 10:00 Resp 22 H 12/30/20 10:00 BP 111/60 12/30/20 10:00 Pulse Ox 95 12/30/20 10:00 12/29/20 12/30/20 12/30/20 22:59 06:59 14:59 Intake Total 320 / 1420 838 / 2258 120 / 120 Output Total 2550 / 2550 1550 / 4100 1800 / 1800 Balance -2230 / -1130 -712 / -1842 -1680 / -1680 Weight last 48 hrs Weight 128.82 kg Weight 128.82 kg Weight 129.274 kg Physical Exam Const: COMMON NORMALS: no acute distress and patient oriented x3 HENMT: COMMON NORMALS: normocephalic HEAD & SCALP: normocephalic Neck/C-Spine: COMMON NORMALS: no JVD Resp: COMMON NORMALS: normal respiratory effort, No retractions, No use of accessory muscles and clear to auscultation bilaterally AUSCULTATION: clear to auscultation bilaterally Cardio: COMMON NORMALS: no JVD, regular rate, regular rhythm, S1 normal heart sound present and S2 normal heart sound present RATE: regular rate RHYTHM: regular rhythm HEART SOUNDS: S1 normal heart sound present and S2 normal heart sound present GI: COMMON NORMALS: Normal to inspection, nondistended, normoactive bowel sounds present, Soft to palpation, non-tender, No hepatosplenomegaly present, no masses and no bruits PALPATION: Yes Soft to palpation and Yes No hepatosplenomegaly present Extremity: COMMON NORMALS: capillary refill normal, no clubbing, cyanosis or edema, no calf tenderness and no pedal edema Neuro: COMMON NORMALS: patient oriented x3 Psych: COMMON NORMALS: mental status grossly normal Urinary Catheter Management^: Patel: Cath Placed During This Visit: yes Reason for Continuing Indwelling Catheter: Accurate Measurement of Urinary Output in Critically Ill Patients Urinary Catheter Date of Insertion: 12/23/20 Urinary Catheter Time of Insertion: 09:30 Data : 12/30/20 03:48 12/30/20 03:48 Micro: Microbiology 12/30/20 08:45 Occult Blood (FIT) - Final Stool 12/26/20 20:34 Gram Stain - Final Sputum - Expectorated Sputum Sputum Culture - Final A&P Assessment and plan (1) Acute respiratory failure with hypoxia: Secondary to bilateral subsegmental pulmonary emboli, recent diagnosis of COVID-19 status post monoclonal antibody infusion, possible underlying pneumonia, diastolic CHF, A. fib with RVR Plan: -Moved to general medical floors -Currently on 2 L -Heart rates are better controlled, converted back to normal sinus rhythm on metoprolol,, amiodarone, off Cardizem drip -Continue diuresis Lasix 40 mg daily -Currently on vancomycin, Primaxin, de-escalate after 7 days of treatment -Continue therapeutic Lovenox -monitor hemoglobin as hemoglobin is down to 9.6, Hemoccult stool, iron levels low at 20, thus will start Protonix 40 twice daily and Carafate - -7 L since admission -Repeat blood cultures, sputum cultures, urine bacterial antigens all negative so far -Monitor respiratory status closely -Full code -Lovenox for DVT prophylaxis -Likely will discharge home with home health care in the next 24 hours Status: Acute (2) Pulmonary embolism associated with COVID-19: Status: Acute (3) CHF exacerbation: Status: Acute Qualifiers: Heart failure type: diastolic Qualified Code(s): I50.33 - Acute on chronic diastolic (congestive) heart failure (4) Atrial fibrillation with RVR: -Converted to normal sinus rhythm -On metoprolol 25 every 6h -Amiodarone 400 mg every 8h -Currently off Cardizem drip -Lovenox for DVT prophylaxis -Appreciate cardiology's input Status: Acute (5) Anemia: Hemoglobin 10.9, baseline is unknown Monitor hemoglobin as she is on full dose Lovenox Status: Acute Additional A&P Information 75-year-old female who was diagnosed with COVID-19 and received monoclonal antibodies mid-November who is presenting with worsening shortness of breath, fever, cough. Gram-positive bacteremia. Probably a contamination. Repeat cultures are negative. Bilateral subsegmental PE after recent COVID-19 diagnosis. Continue Lovenox full dose. Recent COVID-19. Received monoclonal antibodies. Bilateral pleural effusions. Probably very small and improved with diuresis. Continue close monitoring. Continue furosemide. Morbid obesity. CODE STATUS. Full code. The plan of care was discussed with the patient. She verbalized understanding and agreement. Plan for today, move out of the ICU, de-escalate Lasix therapy, de-escalate antibiotic therapy, hopefully discharge the next 24 hours Attestations Medical Necessity Statement*: Patient requires hospitalization for acute respiratory failure sec to pulmonary edema, fluid overload, pneumonia, critical care time spent over 45 minutes Coding Level of Care Code Acute [employer] for g Fwd Diagnoses Acute respiratory failure with hypoxia J96.01 Pulmonary embolism associated with COVID-19 U07.1; I26.99 CHF exacerbation I50.33 Heart failure type: diastolic Atrial fibrillation with RVR I48.91 Anemia D64.9
--- NOTE | 2020-12-30 13:30 | PC.NURSE ---
Pt complains of IV burning. Removed. Tip intact. New IV started in right outer FA. One attempt. Pt tolerated well. Vancomycin will resume.
--- NOTE | 2020-12-30 14:40 | PC.NURSE ---
Report called. Informed nurse that Vanc still running. Imipenem-cilastatin pulled and mixed and will be ready to administer upon arrival to [facility]. Once on MS, I had to locate IV pump to complete Vanc. Informed charge nurse that imipenem-cilastatin ready to administer. Indicated understanding.
[2020-12-30] MEDS: metoprolol tartrate 50 mg Tablet 75 MG PO (21:14)
[2020-12-30 23:44] LABS: Vancomycin Trough 17.9 ug/mL (10-15)
[2020-12-31] VITALS (8 sets, daily range): BP systolic 104–130; BP diastolic 54–72; PULSE 67–84; RESP 17–20; TEMP 36.6–38.1; O2SAT 92–97
[2020-12-31] MEDS: vancomycin 1,250 MG/250 ML PIGGYBACK 200 MG IV ×3 (00:51→23:45)
[2020-12-31 06:03] LABS: Basophils % 0.2 %; Eosinophils # 0.1 10^3/uL (0.0-0.8); Eosinophils % 0.8 %; Hematocrit 33.2 % (37.0-47.0); Lymphocytes # 2.1 10^3/uL (0.8-4.8); Lymphocytes % 13.9 %; Mean Corpuscular HGB Conc 30.1 g/dL (30.0-36.0); Mean Corpuscular Hemoglobin 27.5 pg (28.0-34.0); Mean Corpuscular Volume 91.5 fL (81-99); Mean Platelet Volume 10.6 fL (7.4-10.4); Monocytes # 1.7 10^3/uL (0.2-0.9); Monocytes % 11.3 %; Neutrophils # 11.02 10^3/uL (1.8-7.7); Neutrophils % 72.9 %; Nucleated Red Blood Cells % 0 %; Platelet Count 406 10^3/cmm (130-400); Red Blood Count 3.63 10^6/uL (4.1-5.3); Red Cell Distribution Width 13.5 % (12.1-15.1); White Blood Count 15.1 10^3/uL (4.0-10.0)
[2020-12-31 06:36] LABS: NT Pro B Type Natriuretic Pept 223 pg/mL (0-450); Procalcitonin 0.12 ng/mL (0-0.5)
[2020-12-31] MEDS: sucralfate 1 gm Tablet PO ×3 (06:42→20:28)
[2020-12-31] MEDS: amiodarone 200 mg Tablet 400 MG PO ×2 (06:42→18:06)
[2020-12-31 06:47] LABS: Alanine Aminotransferase 24 U/L (0-33); Albumin Level 2.5 g/dL (3.5-5.2); Alkaline Phosphatase 76 IU/L (35-105); Anion Gap 11.5 (5-19); Aspartate Amino Transferase 18 U/L (0-32); Blood Urea Nitrogen 14 mg/dL (8-23); C Reactive Protein 72.4 mg/L (0.0-4.9); Calcium 8.8 mg/dL (8.5-10.5); Carbon Dioxide 30 mmol/L (22-29); Chloride 99 mmol/L (98-107); Globulin 3.4 g/dL (1.3-4.6); Glucose 101 mg/dL (65-115); Magnesium 1.8 mg/dL (1.7-2.3); Osmolality Calculated 285 mOsm/kg (285-295); Phosphorus 3.7 mg/dL (2.5-4.5); Potassium 3.5 mmol/L (3.5-5.1); Sodium 137 mmol/L (136-145); Total Bilirubin 0.4 mg/dL (0.15-1.2); Total Protein 5.9 g/dL (6.6-8.7)
--- NOTE | 2020-12-31 07:00 | XRR_ITS ---
PROCEDURE INFORMATION: Exam: XR Chest Exam date and time: 12/31/2020 7:42 AM Age: 75 years old Clinical indication: Shortness of breath; Additional info: SOB TECHNIQUE: Imaging protocol: XR of the chest Views: 1 view. COMPARISON: CR XR chest 1V portable [id number] 12/30/2020 5:19 AM FINDINGS: Lungs: There are bibasilar opacities greater on the left side which are consistent with bibasilar consolidation and atelectasis with pleural effusion. The lung apices are clear. Pleural spaces: Unremarkable. No pleural effusion. No pneumothorax. Heart/Mediastinum: The cardiac silhouette is enlarged but unchanged. Bones/joints: Unremarkable. XR/XR chest 1V portable [id number] IMPRESSION: 1. Stable cardiomegaly. 2. No significant change in the bibasilar consolidation atelectasis and pleural effusion.
--- NOTE | 2020-12-31 07:45 | PC.NURSE ---
Report to Ashwin NAM at this time.
[2020-12-31] MEDS: FUROsemide 40 mg Tablet PO (09:27)
[2020-12-31] MEDS: cholecalciferol (vitamin D3) 5,000 unit Tablet 5000 UNIT PO (09:27)
[2020-12-31] MEDS: zinc gluconate 50 mg Tablet PO (09:27)
[2020-12-31] MEDS: pantoprazole DR 40 mg Tablet PO ×2 (09:27→18:00)
[2020-12-31] MEDS: metoprolol tartrate 50 mg Tablet 75 MG PO ×2 (09:28→20:29)
[2020-12-31] MEDS: thiamine 100 mg Tablet PO (09:30)
--- NOTE | 2020-12-31 09:55 | PC.SOCIAL ---
IMM Update Pg.2 of IMM updated and reviewed with patient who verbalized understanding. Copy provided.
--- NOTE | 2020-12-31 10:38 | P.PN_ITS ---
Subjective Subjective: Interval history: This morning patient was examined, she is on 3 L, she tells me that she is breathing better, but she did not get any sleep overnight, no fevers, no chills, no nausea, no vomiting, no chest pain Medications: Reviewed: Yes Medication Review Details: Current Medications Acetaminophen (Acetaminophen 325 Mg Tablet) 650 mg PO Q6H PRN PRN Reason: MILD PAIN Last Admin: 12/25/20 00:40 Dose: 650 mg Documented by: Albuterol Sulfate (Albuterol 8 Gm Mdi) 2 puff INHALATION Q4H.RESPIRATORY PRN PRN Reason: SHORTNESS OF BREATH Last Admin: 12/23/20 23:14 Dose: 2 puff Documented by: Albuterol/Ipratropium (Ipratropium-Albuterol 3 Ml Neb) 3 ml INHALATION Q4H PRN PRN Reason: SHORTNESS OF BREATH Last Admin: 12/28/20 08:40 Dose: 3 ml Documented by: Alprazolam (Alprazolam 0.25 Mg Tablet) 0.125 mg PO TID PRN PRN Reason: ANXIETY Last Admin: 12/26/20 04:19 Dose: 0.125 mg Documented by: Amiodarone HCl (Amiodarone 200 Mg Tablet) 400 mg PO Q8H [facility] JESUS Last Admin: 12/28/20 07:41 Dose: 400 mg Documented by: Enoxaparin Sodium 100 mg/ (Enoxaparin Sodium 30 mg) 130 mg SUBCUT Q12H [facility] Last Admin: 12/28/20 05:35 Dose: 130 mg Documented by: Furosemide (Furosemide 40 Mg Tablet) 40 mg PO BID@08,16 [facility] Last Admin: 12/28/20 07:41 Dose: 40 mg Documented by: Guaifenesin/Dextromethorphan (Guaifenesin-Dextromethorphan Udc 10 Ml) 10 ml PO Q4H PRN PRN Reason: COUGH Last Admin: 12/27/20 13:08 Dose: 10 ml Documented by: Imipenem/Cilastatin Sodium 500 (mg/ Sodium Chloride) 100 mls @ 200 mls/hr IV Q6H [facility] DE JESUS Last Admin: 12/28/20 07:42 Dose: 200 mls/hr Documented by: Dexmedetomidine HCl 400 mcg/ (Sodium Chloride) 104 mls @ 0 mls/hr IV .Q0M [facility] DE JESUS; Protocol Last Titration: 12/24/20 15:30 Dose: Infused Documented by: Diltiazem HCl 125 mg/ Sodium (Chloride) 125 mls @ 0 mls/hr IV .Q0M [facility]; Protocol Last Titration: 12/26/20 19:43 Dose: 0 mg/hr, 0 mls/hr Documented by: Vancomycin/PEG/NADA/Lysine/Water (Vancocin) 1,500 mg in 300 mls @ 200 mls/hr IV Q12H [facility] Last Infusion: 12/27/20 23:05 Dose: Infused Documented by: Metoprolol Tartrate (Metoprolol Tartrate 50 Mg Tablet) 50 mg PO Q8H [facility] Last Admin: 12/28/20 00:40 Dose: Not Given Documented by: Morphine Sulfate (Morphine 4 Mg/Ml Sdv 1 Ml) 1 mg IVP Q4H PRN PRN Reason: SEVERE PAIN Last Admin: 12/27/20 10:23 Dose: 1 mg Documented by: Ondansetron HCl (Ondansetron 2 Mg/Ml Sdv 2 Ml) 4 mg IVP Q6H PRN PRN Reason: NAUSEA AND VOMITING Pantoprazole Sodium (Pantoprazole Dr 40 Mg Tablet) 40 mg PO BID [facility] Potassium Chloride (Potassium Chloride Oral Liq 20 Meq/15 Ml Udc) 40 meq PO DAILY [facility] Last Admin: 12/27/20 09:00 Dose: 40 meq Documented by: Sodium Chloride (Saline Nasal [place] 44ml Btl) 1 spray NASAL PRN PRN PRN Reason: DRYNESS Last Admin: 12/27/20 10:19 Dose: 1 appful Documented by: Sucralfate (Sucralfate 1 Gm Tablet) 1 gm PO AC&BEDTIME [facility] Thiamine Mononitrate (Thiamine 100 Mg Tablet) 100 mg PO DAILY [facility] Last Admin: 12/27/20 08:59 Dose: 100 mg Documented by: Vitamin D (Cholecalciferol (Vitamin D3) 5,000 Unit Tablet) 5,000 unit PO DAILY [facility] Last Admin: 12/27/20 09:43 Dose: 5,000 unit Documented by: Zinc Gluconate (Zinc Gluconate 50 Mg Tablet) 50 mg PO DAILY [facility] Last Admin: 12/27/20 08:59 Dose: 50 mg Documented by: Vitals/I&O/Wt Last Vital Signs Temp 97.9 F 12/31/20 08:00 Pulse 76 12/31/20 08:38 Resp 18 12/31/20 08:38 BP 126/67 12/31/20 08:00 Pulse Ox 94 12/31/20 08:38 12/30/20 12/31/20 12/31/20 22:59 06:59 14:59 Intake Total 470 / 690 350 / 1040 100 / 100 Balance 470 / -1110 350 / -760 100 / 100 Weight last 48 hrs Weight 128.956 kg Weight 128.82 kg Physical Exam Const: COMMON NORMALS: no acute distress and patient oriented x3 HENMT: COMMON NORMALS: normocephalic HEAD & SCALP: normocephalic Neck/C-Spine: COMMON NORMALS: no JVD Resp: COMMON NORMALS: normal respiratory effort, No retractions, No use of accessory muscles and clear to auscultation bilaterally AUSCULTATION: clear to auscultation bilaterally Cardio: COMMON NORMALS: no JVD, regular rate, regular rhythm, S1 normal heart sound present and S2 normal heart sound present RATE: regular rate RHYTHM: regular rhythm HEART SOUNDS: S1 normal heart sound present and S2 normal heart sound present GI: COMMON NORMALS: Normal to inspection, nondistended, normoactive bowel sounds present, Soft to palpation, non-tender, No hepatosplenomegaly present, no masses and no bruits PALPATION: Yes Soft to palpation and Yes No hepatosplenomegaly present Extremity: COMMON NORMALS: capillary refill normal, no clubbing, cyanosis or edema, no calf tenderness and no pedal edema Neuro: COMMON NORMALS: patient oriented x3 Psych: COMMON NORMALS: mental status grossly normal Urinary Catheter Management^: Patel: Cath Placed During This Visit: yes Reason for Continuing Indwelling Catheter: Accurate Measurement of Urinary Output in Critically Ill Patients Urinary Catheter Date of Insertion: 12/23/20 Urinary Catheter Time of Insertion: 09:30 Data : 12/31/20 04:32 12/31/20 04:32 Micro: Microbiology 12/26/20 09:22 Blood Culture - Final Blood NO GROWTH AFTER 5 DAYS 12/26/20 09:30 Blood Culture - Final Blood NO GROWTH AFTER 5 DAYS 12/30/20 08:45 Occult Blood (FIT) - Final Stool A&P Assessment and plan (1) Acute respiratory failure with hypoxia: Secondary to bilateral subsegmental pulmonary emboli, recent diagnosis of COVID-19 status post monoclonal antibody infusion, possible underlying pneumonia, diastolic CHF, A. fib with RVR Plan: -Currently on general medical floors -Currently on 3 L -Heart rates are better controlled, converted back to normal sinus rhythm on metoprolol,, amiodarone, off Cardizem drip -Continue diuresis Lasix 40 mg daily -Currently on vancomycin, Primaxin -Patient has a persistent right pleural effusion, not enough to tap, has been diuresed over 6 L, but persists, concerns for possible infectious versus loculated, too small to tap for now, continue antibiotics -Continue therapeutic Lovenox -monitor hemoglobin as hemoglobin is down to 10, Hemoccult stool, iron levels low at 20, thus will start Protonix 40 twice daily and Carafate and iron - -6 L since admission -Repeat blood cultures, sputum cultures, urine bacterial antigens all negative so far -Monitor respiratory status closely -Full code -Lovenox for DVT prophylaxis -Likely discharge home in the next 48 hours Status: Acute (2) Pulmonary embolism associated with COVID-19: Status: Acute (3) CHF exacerbation: Status: Acute Qualifiers: Heart failure type: diastolic Qualified Code(s): I50.33 - Acute on chronic diastolic (congestive) heart failure (4) Atrial fibrillation with RVR: -Converted to normal sinus rhythm -On metoprolol 25 every 6h -Amiodarone 400 mg every 8h -Currently off Cardizem drip -Lovenox for DVT prophylaxis -Appreciate cardiology's input Status: Acute (5) Anemia: Hemoglobin 10.9, baseline is unknown Monitor hemoglobin as she is on full dose Lovenox Status: Acute (6) Pleural effusion, right: Status: Acute Additional A&P Information 75-year-old female who was diagnosed with COVID-19 and received monoclonal antibodies mid-November who is presenting with worsening shortness of breath, fever, cough. Gram-positive bacteremia. Probably a contamination. Repeat cultures are negative. Bilateral subsegmental PE after recent COVID-19 diagnosis. Continue Lovenox full dose. Recent COVID-19. Received monoclonal antibodies. Persistent right pleural effusion Morbid obesity. CODE STATUS. Full code. The plan of care was discussed with the patient. She verbalized understanding and agreement. Plan for today, PT OT, encourage up out of bed, continue antibiotic therapy continue Lasix, monitor right pleural effusion, hopefully improves Attestations Medical Necessity Statement*: Patient requires hospitalization for acute respi ratory failure secondary to pneumonia, A. fib, CHF, pulmonary edema, right pleural effusion Coding Level of Care Code Acute [employer] Feeder for g Fwd Diagnoses Acute respiratory failure with hypoxia J96.01 Pulmonary embolism associated with COVID-19 U07.1; I26.99 CHF exacerbation I50.33 Heart failure type: diastolic Atrial fibrillation with RVR I48.91 Anemia D64.9 Pleural effusion, right J90
[2020-12-31] MEDS: ALPRAZolam 0.25 mg Tablet 0.125 MG PO (20:34)
[2020-12-31] MEDS: acetaminophen 325 mg Tablet 650 MG PO (22:56)
[2021-01-01] VITALS (8 sets, daily range): BP systolic 90–133; BP diastolic 57–74; PULSE 63–78; RESP 17–18; TEMP 35.9–36.6; O2SAT 94–96
[2021-01-01 06:29] LABS: Basophils # 0.1 10^3/uL (0.0-0.1); Basophils % 0.3 %; Eosinophils # 0.1 10^3/uL (0.0-0.8); Eosinophils % 0.8 %; Hematocrit 32.2 % (37.0-47.0); Hemoglobin 9.7 g/dL (11.5-15.3); Lymphocytes # 2.6 10^3/uL (0.8-4.8); Lymphocytes % 16.8 %; Mean Corpuscular HGB Conc 30.1 g/dL (30.0-36.0); Mean Corpuscular Hemoglobin 27.3 pg (28.0-34.0); Mean Corpuscular Volume 90.7 fL (81-99); Monocytes # 1.7 10^3/uL (0.2-0.9); Monocytes % 11.2 %; Neutrophils # 10.76 10^3/uL (1.8-7.7); Neutrophils % 70.2 %; Nucleated Red Blood Cells % 0 %; Platelet Count 435 10^3/cmm (130-400); Red Blood Count 3.55 10^6/uL (4.1-5.3); Red Cell Distribution Width 13.6 % (12.1-15.1); White Blood Count 15.3 10^3/uL (4.0-10.0)
[2021-01-01] MEDS: sucralfate 1 gm Tablet PO (06:30)
[2021-01-01] MEDS: amiodarone 200 mg Tablet 400 MG PO (06:30)
--- NOTE | 2021-01-01 07:00 | XRR_ITS ---
PROCEDURE INFORMATION: Exam: XR Chest Exam date and time: 01/01/2021 8:03 AM Age: 75 years old Clinical indication: Shortness of breath; Additional info: SOB TECHNIQUE: Imaging protocol: XR of the chest Views: 1 view. COMPARISON: CR (CHEST, ) 12/31/2020 7:32 AM FINDINGS: Lungs: Mild patchy airspace opacities (atelectasis and/or consolidation) at the right lung base, similar to prior study. Large area of airspace opacity (atelectasis and/or consolidation) at the left lung base, similar to prior study. Pulmonary vasculature within normal limits. Pleural spaces: No visible pneumothorax. Small right pleural effusion, similar to prior study. Moderate left pleural effusion, similar to prior study. Heart/Mediastinum: Heart size within normal limits. Bones/joints: No emergent findings identified. XR/XR chest 1V portable [id number] IMPRESSION: 1. Mild patchy airspace opacities (atelectasis and/or consolidation) at the right lung base, similar to prior study. 2. Large area of airspace opacity (atelectasis and/or consolidation) at the left lung base, similar to prior study. 3. Small right pleural effusion, similar to prior study. 4. Moderate left pleural effusion, similar to prior study.
[2021-01-01 07:11] LABS: NT Pro B Type Natriuretic Pept 343 pg/mL (0-450); Procalcitonin 0.11 ng/mL (0-0.5)
--- NOTE | 2021-01-01 07:20 | PC.NURSE ---
Bedside report to Mars NAM at this time.
[2021-01-01 07:22] LABS: Alanine Aminotransferase 26 U/L (0-33); Albumin Level 2.4 g/dL (3.5-5.2); Alkaline Phosphatase 75 IU/L (35-105); Anion Gap 10.5 (5-19); Aspartate Amino Transferase 20 U/L (0-32); Blood Urea Nitrogen 14 mg/dL (8-23); C Reactive Protein 84.7 mg/L (0.0-4.9); Calcium 8.5 mg/dL (8.5-10.5); Carbon Dioxide 29 mmol/L (22-29); Chloride 103 mmol/L (98-107); Globulin 3.3 g/dL (1.3-4.6); Glucose 113 mg/dL (65-115); Magnesium 1.8 mg/dL (1.7-2.3); Osmolality Calculated 289 mOsm/kg (285-295); Phosphorus 3.6 mg/dL (2.5-4.5); Potassium 3.5 mmol/L (3.5-5.1); Sodium 139 mmol/L (136-145); Total Bilirubin 0.3 mg/dL (0.15-1.2); Total Protein 5.7 g/dL (6.6-8.7)
[2021-01-01] MEDS: ipratropium-albuterol 3 mL Neb INHALATION (07:46)
[2021-01-01] MEDS: potassium chloride oral liq 20 mEq/15 mL UDC 60 MEQ PO (08:12)
[2021-01-01] MEDS: FUROsemide 40 mg Tablet PO (08:13)
[2021-01-01] MEDS: zinc gluconate 50 mg Tablet PO (08:13)
[2021-01-01] MEDS: cholecalciferol (vitamin D3) 5,000 unit Tablet 5000 UNIT PO (08:13)
[2021-01-01] MEDS: metoprolol tartrate 50 mg Tablet 75 MG PO (08:14)
[2021-01-01] MEDS: thiamine 100 mg Tablet PO (08:15)
[2021-01-01] MEDS: pantoprazole DR 40 mg Tablet PO (08:15)
--- NOTE | 2021-01-01 10:27 | CTR_ITS ---
PROCEDURE INFORMATION: Exam: CT Chest Without Contrast; Diagnostic Exam date and time: 01/01/2021 11:23 AM Age: 75 years old Clinical indication: Condition or disease; Lung condition and disease; Patient HX: Post covid pleural effusion; Additional info: R leural effusion, R/O loclulation TECHNIQUE: Imaging protocol: Diagnostic computed tomography of the chest without contrast. Radiation optimization: All CT scans at this facility use at least one of these dose optimization techniques: automated exposure control; mA and/or kV adjustment per patient size (includes targeted exams where dose is matched to clinical indication); or iterative reconstruction. COMPARISON: CT angio chest PE protcl [id number] 12/22/2020 1:55 PM RADIATION DOSE METRICS: Total DLP (mGy-cm): 942.23 FINDINGS: Lungs: Multiple benign calcified granulomas are present in the lungs. There is bibasilar atelectasis specially in the lower lobes. This is similar to the previous CT scan from 12/22/2020. Pleural spaces: Small bilateral pleural effusions are present. There is no pneumothorax. There is stable mild dilatation of the right pulmonary artery. Heart: The heart is not enlarged. There is a small pericardial effusion. There is calcification of the coronary arteries. Aorta: There is atherosclerotic calcification of the aorta but there is no aneurysm. Lymph nodes: There are multiple benign calcified lymph nodes in the mediastinum and pulmonary eben. Spleen: Tiny benign calcified granulomas are present in the spleen. Adrenal glands: There is a 2.8 cm benign adenoma in the right adrenal gland. Bones/joints: Chronic degenerative changes are present in the spine with joint space narrowing sclerosis and osteophytes. Soft tissues: Unremarkable. CT/CT chest wo con [id number] IMPRESSION: 1. Bilateral small pleural effusions. 2. Bilateral lower lobe atelectasis. 3. Small pericardial effusion. 4. Benign calcified granulomas disease. 5. Benign 2.8 cm right adrenal adenoma. 6. No significant change since the previous CT scan from 12/22/2020. COMMENTS: Consistent with the [employer]'s Incidental Findings Committee white paper (J Am Kaylee Radiol 2017): For any incidental adrenal lesion greater than 1 cm but less than 4 cm classified in this report as benign, likely benign, or containing fat (including classification as an adenoma or myelolipoma), no follow-up imaging is recommended per consensus recommendations based on imaging criteria. Further lab evaluation could be pursued if warranted based on clinical findings. Radiation Dose CTDIVOL = (mGy): DLP = 942.23 (mGy-cm)
[2021-01-01] MEDS: sodium chloride 0.9% 500 ML 999 ML IV (12:18)
--- NOTE | 2021-01-01 13:29 | PC.NURSE ---
PT OFF UNIT TO CT.
--- NOTE | 2021-01-01 14:42 | PM.DCS ---
Discharge Providers Date of Admission: 12/22/20 14:37 Date of Discharge: January 01, 2021 Attending Provider at Admission: Baljinder Sales Attending Provider at Discharge: Irving Rodriguez MD Primary Care Provider: GISSELLE Bonilla Diagnoses at Discharge Discharge Diagnosis (1) Acute respiratory failure with hypoxia: Status: Acute (2) Pulmonary embolism associated with COVID-19: Status: Acute (3) CHF exacerbation: Status: Acute Qualifiers: Heart failure type: diastolic Qualified Code(s): I50.33 - Acute on chronic diastolic (congestive) heart failure (4) Atrial fibrillation with RVR: Status: Acute (5) Anemia: Status: Acute (6) Pleural effusion, right: Status: Acute Reason for Visit Reason for Visit: COVID SYMPTOMS, SOB, FEVER Hospital Course Hospital Course This is a 75-year-old female with a past medical history of COVID-19 diagnosed back in November, status post bam infusion, who presents to [facility] due to worsening shortness of breath, fevers, productive cough, generalized weakness Patient was admitted to [facility] intensive care unit for acute hypoxic respiratory failure secondary to bilateral pulmonary subsegmental pulmonary emboli, underlying pneumonia, bilateral pleural effusions, pulmonary edema, diastolic CHF, atrial fibrillation with rapid ventricular response For acute hypoxic respiratory failure, she was admitted to the ICU, received therapeutic for pneumonia Lovenox, broad-spectrum antibiotic therapy, heart rate control for atrial fibrillation, diuretic therapy, pulmonary was consulted, cardiology was consulted, she was kept on high flow in the ICU for a couple of days, transitioned down to nasal cannula, moved to the general medical floors, ambulating without significant symptomatology. On 01/01/2021, patient was adamant about going home, discharged home on 2 L nasal cannula, albuterol, Tessalon Perles, with close follow-up with pulmonary and cardiology as outpatient. For patient's bilateral pulmonary emboli, she was treated with Lovenox as inpatient, no signs of acute bleeding, but her hemoglobin did downtrend to 9.7 on discharge. I have discharged her on Eliquis DVT PE dosing, Protonix and Carafate, recheck CBC in 1 week with primary care provider office, follow-up with general surgery in 1 to 2 months for consideration of EGD. Patient was advised that if she were to have bloody or black stools, hematemesis or hemoptysis come to the emergency room. For patient's pulmonary edema, bilateral pleural effusions, she received diuretic therapy as inpatient, diuresed over 24 L, she is -4 L since admission. Discharged on Lasix 40 mg daily, potassium 40 mEq daily, follow-up with cardiology in 1 to 2 weeks. Patient had concerns for recurrent right-sided pleural effusion, concerns for loculated pleural effusion, she was kept on broad-spectrum antibiotic therapy throughout her hospital admission, remained afebrile, white blood cell count on discharge was 15.3, inflammatory markers were trending downwards, as patient was adamant about going home on 01/01/2021, repeat CT chest was performed to better delineate this right-sided pleural effusion. CT of the chest showed bilateral small pleural effusions, bilateral lower lobe atelectasis, small pericardial effusion. I have advised patient to continue Augmentin and doxycycline for 7 remaining days. Follow-up with pulmonary in 1 to 2 weeks. If she were to have recurrent fever or shortness of breath chest discomfort come back to emergency room. For patient's A. fib with RVR, she has been discharged on metoprolol 50 mg twice daily, and amiodarone weaning dose 200 twice daily for 1 week followed by 200 mg once daily. Eliquis as above. Patient's blood pressures were soft on the day of discharge, thus I have reduced her metoprolol dose down to 50 mg twice daily. For anemia, hemoglobin 9.7 on discharge, follow-up with general surgery in 1 month for EGD, discharged on Protonix, Carafate, with instructions to monitor for bleeding. Physical Exam Const: COMMON NORMALS: no acute distress and patient oriented x3 HENMT: COMMON NORMALS: normocephalic HEAD & SCALP: normocephalic Neck/C-Spine: COMMON NORMALS: no JVD Resp: COMMON NORMALS: normal respiratory effort, No retractions, No use of accessory muscles and clear to auscultation bilaterally AUSCULTATION: clear to auscultation bilaterally Cardio: COMMON NORMALS: no JVD, regular rate, regular rhythm, S1 normal heart sound present and S2 normal heart sound present RATE: regular rate RHYTHM: regular rhythm HEART SOUNDS: S1 normal heart sound present and S2 normal heart sound present GI: COMMON NORMALS: Normal to inspection, nondistended, normoactive bowel sounds present, Soft to palpation, non-tender, No hepatosplenomegaly present, no masses and no bruits PALPATION: Yes Soft to palpation and Yes No hepatosplenomegaly present Extremity: COMMON NORMALS: capillary refill normal, no clubbing, cyanosis or edema, no calf tenderness and no pedal edema Neuro: COMMON NORMALS: patient oriented x3 Psych: COMMON NORMALS: mental status grossly normal Urinary Catheter Management^: Patel: Cath Placed During This Visit: yes Reason for Continuing Indwelling Catheter: Accurate Measurement of Urinary Output in Critically Ill Patients Urinary Catheter Date of Insertion: 12/23/20 Urinary Catheter Time of Insertion: 09:30 Discharge Data Data Completed and Pending: Completed Studies During Hospitalization Category Date Time Status CT angio chest PE protcl [id number] Stat Cat Scan 12/22/20 11:[address] chest wo con 7 [id number] Stat Cat Scan 01/01/21 10:27 Completed XR chest 1V christi ble [id number] Routine Exams 12/23/20 06:00 Completed XR chest 1V christi ble [id number] Routine Exams 12/25/20 06:52 Completed XR chest 1V christi ble [id number] Routine Exams 12/26/20 06:00 Completed XR chest 1V christi ble [id number] Routine Exams 12/27/20 07:00 Completed XR chest 1V christi ble [id number] Routine Exams 12/29/20 07:00 Completed XR chest 1V christi ble [id number] Routine Exams 12/30/20 07:00 Completed XR chest 1V christi ble [id number] Routine Exams 12/31/20 07:00 Completed XR chest 1V christi ble [id number] Routine Exams 01/01/21 07:00 Completed XR chest 1V christi ble [id number] Stat Exams 12/24/20 12:28 Completed CV echo complete* [id number] Routine Ultrasound 12/23/20 06:00 Completed CV echo lmt wo/w contras [id number] Rout ine Ultrasound 12/28/20 09:24 Completed [place] chest [id number] Ro utine Ultrasound 12/23/20 10:55 Completed US venous duplex lower extremity bi lat [CV venous Ultrasound 12/23/20 08:50 [place] [id number] 0] Routine US/CV paperwork R outine Ultrasound 12/28/20 Completed Pending at discharge Category Date Time Status Arterial Blood Ga s W/O Coox AM LABS Lab 01/01/21 04:00 Ordered Labs from last 24 hours 01/01/21 01/01/21 06:05 06:05 WBC 15.3 H RBC 3.55 L Hgb 9.7 L Hct 32.2 L MCV 90.7 MCH 27.3 L MCHC 30.1 RDW 13.6 Plt Count 435 H MPV 10.0 Neut % (Auto) 70.2 Lymph % (Auto) 16.8 [place] % (Auto) 11.2 Eos % (Auto) 0.8 Baso % (Auto) 0.3 Neut # (Auto) 10.76 H Lymph # (Auto) 2.6 [place] # (Auto) 1.7 H Eos # (Auto) 0.1 Baso # (Auto) 0.1 Nucleated RBC % (a uto) 0 Nucleated RBCs # 0.0 Sodium 139 Potassium 3.5 Chloride 103 Carbon Dioxide 29 Anion Gap 10.5 BUN 14 Creatinine 0.5 GFR Calculation Not Reportable Glucose 113 Calculated Osmolal ity 289 Calcium 8.5 Phosphorus 3.6 Magnesium 1.8 Total Bilirubin 0.3 AST 20 ALT 26 Alkaline Phosphata se 75 C-Reactive Protein 84.7 H NT-Pro-B Natriuret Pep 343 Total Protein 5.7 L Albumin 2.4 L Globulin 3.3 Procalcitonin 0.11 Vitals: Last Vital Signs Temp 97.0 F L 01/01/21 11:30 Pulse 67 01/01/21 11:30 Resp 17 01/01/21 11:30 BP 126/70 01/01/21 13:30 Pulse Ox 96 01/01/21 11:30 Discharge Plan Discharge Patient Disposition: Home Condition: Stable Prescriptions: New albuterol sulfate 90 mcg/actuation HFA aerosol inhaler 2 puff inhalation Q4H.RESPIRATORY PRN (Reason: Shortness Of Breath) Qty: 8.5 RF: 0 Pacerone 200 mg Tablet See Rx Instructions .ROUTE .COMPLEX Qty: 37 RF: 0 furosemide 40 mg Tablet 40 mg PO DAILY 30 Days Qty: 30 RF: 0 potassium chloride 20 mEq/15 mL Liquid 40 meq PO DAILY 30 Days Qty: 1200 RF: 0 benzonatate 100 mg Capsule 100 mg PO TID PRN (Reason: Cough) 30 Days Qty: 30 RF: 0 pantoprazole 40 mg Tablet,Delayed Release (Dr/Ec) 40 mg PO BID 30 Days Qty: 60 RF: 0 metoprolol tartrate 50 mg Tablet 50 mg PO BID@0900,2100 30 Days Qty: 60 RF: 0 cholecalciferol (vitamin D3) 125 mcg (5,000 unit) Tablet 5,000 unit PO DAILY 30 Days Qty: 30 RF: 0 Augmentin 875-125 mg tablet 1 tab PO BID 7 Days Qty: 14 RF: 0 doxycycline hyclate 100 mg tablet 100 mg PO BID 7 Days Qty: 14 RF: 0 sucralfate 1 gram Tablet 1 g PO AC&BEDTIME 30 Days Qty: 60 RF: 0 Eliquis DVT-PE Treat 30D Start 5 mg (74 tabs) tablets,dose pack See Rx Instructions .ROUTE .COMPLEX Qty: 74 RF: 0 Discontinued ibuprofen 200 mg capsule 200 mg PO Q6H PRN (Reason: Muscle Pain) RF: 0 Discharge Orders: Discharge Order (Routine); Ordered 01/01/21 Ordered By: Irving Rodriguez Other Ambulatory Orders: Complete Blood Count w/Auto (Routine) Timeframe: 1 Week Location: Determined by Patient Ordered By: Irving Rodriguez DME: Oxygen (Order) Location: None Selected Ordered By: Irving Rodriguez Referrals: Yayo Cross MD [Physician] - 2 weeks (Call the office first thing Saturday morning to schedule as appointment for 2 weeks.) Brandon Salinas MD [Physician] - 2 months (neeed for egd. Call the office first thing Saturday morning to schedule as appointment for 2 months.) Daisy Malik MD [Physician] - 2 weeks (Call the office first thing Saturday morning to schedule as appointment for 2 weeks.) Winifred Bach FNP [Primary Care Provider] - 1 week (Call the office first thing Saturday morning to schedule an appontment for 1 week) Discharge Diet: Cardiac Discharge Activity: Resume usual activity Patient Instructions: Apixaban (By mouth), Atrial Fibrillation (DC), Pulmonary Embolism (DC) Activity Restrictions/Additional Instructions: -For your pulmonary emboli I have discharged you on Eliquis -Please monitor for bloody or black stools, if so go to the emergency room -Follow-up with primary care provider in 1 week for recheck CBC, lung check -Follow-up with cardiology in 2 weeks for atrial fibrillation -For atrial fibrillation you have been discharged on amiodarone and metoprolol -If you feel lightheaded or dizzy please come back to emergency room -For your pneumonia have discharged you on Augmentin and doxycycline -Please follow-up with Dr. Krause in 1 to 2 weeks, if you have fevers, chills, worsening shortness of breath come back to emergency room Discharge Attestations Time Spent in Discharge Care*: greater than 30 min Quality Metrics Clinical Quality Measures During this hospital stay, did patient experience: None Coding Level of Care Code Acute Anatomy Professor for g Fwd Diagnoses Acute respiratory failure with hypoxia J96.01 Pulmonary embolism associated with COVID-19 U07.1; I26.99 CHF exacerbation I50.33 Heart failure type: diastolic Atrial fibrillation with RVR I48.91 Anemia D64.9 Pleural effusion, right J90
== END 2021-01-01 16:00 | disposition home or self-care (01) | DRG 189 ==
LOC: ER 11:18 → ICU 16:59 → MEDSURG 12-30 14:59
PROVIDERS: Admitting Provider Internal Medicine; Emergency Provider Family Medicine; PCP Nurse Practitioner Family; Visit Provider Family Medicine
DX: J96.01 Acute respiratory failure with hypoxia (principal); I26.94 Multiple subsegmental thrombotic pulmonary emboli without acute cor pulmonale; J18.9 Pneumonia, unspecified organism; I50.33 Acute on chronic diastolic (congestive) heart failure; I48.20 Chronic atrial fibrillation, unspecified; I31.3 Pericardial effusion (noninflammatory); Z86.16 Personal history of COVID-19; E66.01 Morbid (severe) obesity due to excess calories; Z99.81 Dependence on supplemental oxygen; D64.9 Anemia, unspecified; D47.3 Essential (hemorrhagic) thrombocythemia; E83.42 Hypomagnesemia
CPT/HCPCS: 32555; 36415; 36600; 51702; 71045; 71250; 71275; 76604; 80053; 80069; 80202; 82274; 82550; 82728; 82803; 83036; 83540; 83605; 83735; 83880; 84100; 84145; 84484; 85014; 85018; 85025; 85045; 85378; 85610; 85730; 86140; 86403; 87040; 87070; 87205; 87635; 87641; 93005; 93306; 93970; 94640; 94660; 94664; 96365; 96366; 96367; 96372; 96375; 97110; 97116; 97162; 97165; 97530; 97535; 99291; C8924; J0696; J0743; J1644; J1650; J1940; J1956; J2270; J3370; J3475; J3480; J3490; J3535; J7040; P9047; Q9956; Q9967

== ENCOUNTER 2021-01-24 11:00 | Outpatient (CLI) | payer MEDICARE, OTHER, SELFPAY | END 2021-01-24 11:01 | disposition home or self-care (01) | LOC: SLEEP 01-26 13:06 | PROVIDERS: PCP Nurse Practitioner Family; Visit Provider Internal Medicine Critical Care Medicine | DX: R06.02 Shortness of breath (principal) | CPT/HCPCS: 94762 ==

== ENCOUNTER 2021-01-26 13:07 | Outpatient (CLI) | payer MEDICARE, OTHER, SELFPAY ==
--- NOTE | 2021-01-26 13:16 | USCV_ITS ---
Nano Lu Age: 75 Gender: F : 1945 Exam Date: 01/26/2021 13:37 Ordering Phys: Winifred Bach LABORER [employer] Technologist: Yani Chase Exam Location: [facility]_ Indication: LOCALIZED EDEMA PROCEDURES: Venous duplex imaging was performed in only the right lower extremity. The following venous structures were evaluated: common femoral vein, profunda vein, proximal portion of the greater saphenous vein, superficial femoral vein, and the popliteal vein. In addition, the posterior tibial and peroneal trunk were evaluated. FINDINGS: Normal 2-D Doppler and augmentation and compressibility throughout the lower extremity venous structures. Additional imaging through the proximal calf veins also reveals no thrombus. Limited evaluation of the greater saphenous vein is patent with no thrombus.. Echolucent areas are noted in the subcutaneous tissue on the right side CONCLUSIONS No evidence of DVT in the above-mentioned identifiable veins. Features of fluid retention/edema in the right lower extremity Dr Brendan Whitman MD [facility] (Electronically Signed) Final Date: 27 January 2021 19:19 S
== END 2021-01-26 13:08 | disposition home or self-care (01) ==
PROVIDERS: PCP Nurse Practitioner Family; Visit Provider Nurse Practitioner Family
DX: R60.0 Localized edema (principal)
CPT/HCPCS: 93971

== ENCOUNTER → 2021-10-12 15:10 | Outpatient (BNVA) | payer MEDICARE, OTHER, SELFPAY | PROVIDERS: PCP Nurse Practitioner Family; Referring Provider Nurse Practitioner Family; Visit Provider Obstetrics & Gynecology | DX: N95.0 Postmenopausal bleeding (principal); D25.1 Intramural leiomyoma of uterus | CPT/HCPCS: 76830 ==

== ENCOUNTER → 2022-02-26 10:22 | Outpatient (BNVA) | payer MEDICARE, OTHER, SELFPAY | PROVIDERS: PCP Nurse Practitioner Family; Visit Provider Internal Medicine Cardiovascular Disease | DX: I50.32 Chronic diastolic (congestive) heart failure (principal); I48.0 Paroxysmal atrial fibrillation; Z51.81 Encounter for therapeutic drug level monitoring; Z79.899 Other long term (current) drug therapy; I31.3 Pericardial effusion (noninflammatory); Z87.891 Personal history of nicotine dependence; D64.9 Anemia, unspecified; I44.0 Atrioventricular block, first degree | CPT/HCPCS: 80053; 85025; 93005; 99214 ==

== ENCOUNTER → 2022-08-07 09:35 | Outpatient (BNVA) | payer MEDICARE, OTHER, SELFPAY | PROVIDERS: PCP Nurse Practitioner Family; Referring Provider Nurse Practitioner Family; Visit Provider Physician Assistant | DX: M48.062 Spinal stenosis, lumbar region with neurogenic claudication (principal); M47.816 Spondylosis without myelopathy or radiculopathy, lumbar region; M51.37 Other intervertebral disc degeneration, lumbosacral region; F40.240 Claustrophobia | CPT/HCPCS: 72110; 99203; 99204 ==

== ENCOUNTER → 2022-09-11 08:25 | Outpatient (BNVA) | payer MEDICARE, OTHER, SELFPAY | PROVIDERS: PCP Nurse Practitioner Family; Visit Provider Otolaryngology | DX: H60.543 Acute eczematoid otitis externa, bilateral (principal); Z87.891 Personal history of nicotine dependence | CPT/HCPCS: 99203 ==

== ENCOUNTER 2022-09-26 08:33 | Outpatient (CLI) | payer MEDICARE, OTHER, SELFPAY ==
--- NOTE | 2022-09-26 08:45 | MR_ITS ---
WS: [id number] MRI LUMBAR SPINE NONCONTRAST TECHNIQUE: Sagittal T1, T2 and STIR imaging. Axial T1 and T2 imaging. CLINICAL INFORMATION: lower back pain COMPARISON: None. FINDINGS: Mild lumbar curve. No acute compression. No high-grade central canal stenosis. L1-L2: Mild annular bulging. Slight effacement of ventral thecal sac. Mild facet arthropathy. Spinal canal and foramen are patent. L2-L3: Annular bulging with effacement of ventral thecal sac. Mild facet arthropathy. Small RIGHT for aminal protrusion with mild RIGHT foraminal narrowing. LEFT foramen is patent. L3-L4: Mild disc bulging with moderate to severe central canal stenosis. Impingement traversing L4 ne rve roots LEFT greater than RIGHT. Moderate facet arthropathy. Mild RIGHT and no LEFT foraminal narro wing. L4-L5: Mild annular bulging. Advanced facet arthropathy. LEFT eccentric disc bulging with mild LEFT f oraminal narrowing and slight contact of the far exiting LEFT L4 nerve root. RIGHT foramen is patent. Moderate facet arthropathy. L5-S1: Mild disc bulging with impingement traversing RIGHT greater than LEFT S1 nerve roots. Moderate facet arthropathy ligamentum flavum hypertrophy. Mild bilateral foraminal narrowing. RIGHT adrenal lesion likely adenoma measuring 3.7 CM. Partially visualized peripelvic renal cysts. Visualized pelvic bony structures: Sclerotic low signal lesion LEFT ilium unchanged since 2008. Paravertebral soft tissues: Normal. MR/MR lumbar spine wo con* [id number] IMPRESSION: 1. Mild lumbar curve. No acute compression. 2. Moderate to severe central canal stenosis L3-L4 with impingement on the tra versing L4 nerve roots bilaterally LEFT greater than RIGHT. 3. Mild central canal stenosis L1-L2 and moderate central canal stenosis L2-L3 . 4. Disc bulging L5-S1 impinges the traversing RIGHT S1 nerve root with moderat e central canal stenosis. 5. Small RIGHT foraminal protrusion L2-L3 slightly contacts the exiting RIGHT L2 nerve root. 6. Mild RIGHT L3-L4 foraminal narrowing. 7. Far LEFT disc bulging L4-L5 slightly contacts the far exiting LEFT L4 nerve root. 8. Advanced facet arthropathy L5-S1.
== END 2022-09-26 08:34 | disposition home or self-care (01) ==
PROVIDERS: PCP Nurse Practitioner Family; Visit Provider Physician Assistant
DX: M48.061 Spinal stenosis, lumbar region without neurogenic claudication (principal); M51.26 Other intervertebral disc displacement, lumbar region; M47.897 Other spondylosis, lumbosacral region
CPT/HCPCS: 72148

== ENCOUNTER → 2022-10-11 12:38 | Outpatient (BNVA) | payer MEDICARE, OTHER, SELFPAY | PROVIDERS: PCP Nurse Practitioner Family; Visit Provider Physician Assistant | DX: M48.062 Spinal stenosis, lumbar region with neurogenic claudication (principal); M51.37 Other intervertebral disc degeneration, lumbosacral region; D36.9 Benign neoplasm, unspecified site | CPT/HCPCS: 99213 ==

== ENCOUNTER → 2022-10-22 10:48 | Outpatient (BNVA) | payer MEDICARE, OTHER, SELFPAY | PROVIDERS: PCP Nurse Practitioner Family; Visit Provider Anesthesiology Pain Medicine | DX: M48.062 Spinal stenosis, lumbar region with neurogenic claudication (principal); M47.816 Spondylosis without myelopathy or radiculopathy, lumbar region; M48.061 Spinal stenosis, lumbar region without neurogenic claudication; M62.830 Muscle spasm of back | CPT/HCPCS: 99214 ==

== ENCOUNTER → 2023-09-06 09:30 | Outpatient (BNVA) | payer MEDICARE, OTHER, SELFPAY | PROVIDERS: PCP Nurse Practitioner Family; Visit Provider Internal Medicine Cardiovascular Disease | DX: I50.32 Chronic diastolic (congestive) heart failure (principal); I48.0 Paroxysmal atrial fibrillation; Z51.81 Encounter for therapeutic drug level monitoring; Z79.899 Other long term (current) drug therapy | CPT/HCPCS: 99214 ==

== ENCOUNTER → 2024-02-28 08:41 | Outpatient (BNVA) | payer MEDICARE, OTHER, SELFPAY | PROVIDERS: PCP Nurse Practitioner Family; Visit Provider Internal Medicine Cardiovascular Disease | DX: I50.32 Chronic diastolic (congestive) heart failure (principal); I48.0 Paroxysmal atrial fibrillation; Z86.16 Personal history of COVID-19; Z86.711 Personal history of pulmonary embolism; Z87.891 Personal history of nicotine dependence; Z79.01 Long term (current) use of anticoagulants | CPT/HCPCS: 99214 ==

== ENCOUNTER → 2024-09-25 10:07 | Outpatient (BNVA) | payer MEDICARE, OTHER, SELFPAY | PROVIDERS: PCP Nurse Practitioner Family; Visit Provider Nurse Practitioner Family | DX: I48.0 Paroxysmal atrial fibrillation (principal); Z51.81 Encounter for therapeutic drug level monitoring; Z79.899 Other long term (current) drug therapy; I50.32 Chronic diastolic (congestive) heart failure; Z79.01 Long term (current) use of anticoagulants; Z86.711 Personal history of pulmonary embolism | CPT/HCPCS: 99214 ==

== ENCOUNTER 2025-05-13 10:28 | Emergency (ER) | payer MEDICARE, OTHER, SELFPAY ==
--- OUTSIDE RECORDS SUMMARY | 2025-05-13 10:32 | XMS_ITS | Encounter Summary ---
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 Name Role Phone Unavailable Primary Care Provider Unavailabl e Encounter Details Date Type Department Care Team (Latest Contact Info) Description 09/08/2004 Outpatient Historical [facility] [address] [place] [id number] Jaylan Burdick MD [address] [place] [address] TRIGEMINAL NEURALGIA (Primary Dx) Social History Tobacco Use Types Packs/Day Years Used Date Smoking Tobacco: Never Assessed Comments Unknown Sex and Gender Information Value Date Recorded Sex Assigned at Not on file 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
--- OUTSIDE RECORDS SUMMARY | 2025-05-13 10:32 | XMS_ITS | Clinical Summary ---
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
[2025-05-13 10:43] VITALS: BP 141/53; PULSE 83; RESP 16; TEMP 37.1; O2SAT 93; BMI 46.6
[2025-05-13 11:21] VITALS: RESP 19
[2025-05-13] MEDS: ondansetron 2 mg/ML SDV 2 mL 8 MG IVP (11:21)
[2025-05-13] MEDS: morphine 4 mg/mL SDV 1 mL IVP (11:21)
[2025-05-13 11:26] LABS: Hematocrit 40.8 % (36-47); Hemoglobin 12.60 g/dL (11.27-16.99); Mean Corpuscular HGB Conc 30.9 g/dL (30-55); Mean Corpuscular Hemoglobin 29.2 pg (27-33); Mean Corpuscular Volume 94.7 fl (85-98); Nucleated Red Blood Cells % 0 %; Platelet Count 272 10^3/cmm (157-399); Red Blood Count 4.31 10^6/uL (3.85-5.65); White Blood Count 14.50 10^3/uL (3.29-11.43)
[2025-05-13 11:42] LABS: Lactic Sepsis W/Reflex 2.2 mmol/L (0.5-2.2)
[2025-05-13 11:43] LABS: Troponin(5th) Baseline 12 ng/L (0-10)
[2025-05-13 11:52] LABS: Alanine Aminotransferase 317 U/L (0-33); Albumin Level 3.8 g/dL (3.5-5.2); Alkaline Phosphatase 150 U/L (35-105); Aspartate Amino Transferase 397 U/L (0-32); Blood Urea Nitrogen 14 mg/dL (8-23); Calcium 8.9 mg/dL (8.5-10.5); Carbon Dioxide 22 mmol/L (22-29); Chloride 100 mmol/L (98-107); Creatinine Clr Calc Pharmacy 79.2548; Globulin 2.4 g/dL (1.3-4.6); Glucose 194 mg/dL (65-115); Lipase 47 U/L (13-60); Osmolality Calculated 290 mOsm/kg (285-295); Sodium 137 mmol/L (136-145); Total Protein 6.2 g/dL (6.6-8.7)
[2025-05-13 12:01] LABS: Glucose Urine UA Negative (Normal); Nitrate Urine Positive (Negative); Specific Gravity, Urine 1.020 (1.005-1.030)
[2025-05-13 12:03] LABS: Anion Gap 19.0 (5-19); Potassium 4.0 mmol/L (3.5-5.1)
[2025-05-13 12:04] LABS: Add Urine Microscopic? YES
--- NOTE | 2025-05-13 12:05 | ECG_ITS ---
[facility] Test Date: 2025-05-13 Pat Name: Nano Lu Department: Room: Gender: Female Charge Coordinator: : 1945 Requested By: Jenny Garcia Order Number: [id number] Rebel MD: Brendan Whitman M.D. Measurements Intervals [place] Rate: 85 P: 65 [place]: 245 QRS: 62 QRSD: 110 T: -86 QT: 365 QTc: 436 Interpretive Statements SINUS RHYTHM WITH FIRST DEGREE AV BLOCK MODERATE T-WAVE ABNORMALITY, CONSIDER ANTEROLATERAL ISCHEMIA [-0.1+ mV T-WAVE IN V3-V6] MODERATE T-WAVE ABNORMALITY, CONSIDER INFERIOR ISCHEMIA [-0.1+ mV T-WAVE IN II/aVF] Compared to ECG 12/25/2020 09:30:38 First degree AV block now present T-wave abnormality now present Possible ischemia now present Electronically Signed On 05-14-2025 15:22:08 CDT by Brendan Whitman M.D. [email or web address]
--- NOTE | 2025-05-13 12:16 | US_ITS ---
WS: [id number] Exam: US abdomen limited [id number] Date/Time of Exam: 05/13/2025 12:56 PM Reason For Exam: ruq pain, elevated liver enzymes. liver and gb please Multiple stones in the gallbladder with probable sludge. Mild gallbladder wall edema. The common bile duct is dilated and measures 1 cm in greatest diameter. Prominent RIGHT renal collecting system is noted. This represents either hydronephrosis or parapelvic renal cysts. 1.7 cm hypoechoic nodule seen just under the surface of the LEFT lobe of the liver. Appearance is nonspecific. Mild hepatomegaly. Hepatic steatosis. The abdominal aorta and IVC were unremarkable. RIGHT kidney measures 13.7 x 6.5 x 5.5 cm. RIGHT renal cortex measures 1.2 cm in greatest thickness. US/US abdomen limited [id number] IMPRESSION: 1. Hepatomegaly and hepatic steatosis. 2. Dilated common bile duct measuring 1 cm in greatest diameter. The possibilit y of choledocholithiasis should be considered. 3. Multiple gallstones as well as sludge in the gallbladder. Probable mild gall bladder wall edema which may indicate early acute cholecystitis. 4. Probable multiple right renal parapelvic cysts. Hydronephrosis is felt to be less likely. 5. 1.7 cm hypoechoic nodule involving the LEFT hepatic lobe. The appearance is nonspecific but probably benign. Repeat ultrasound in 6 months suggested to sunil ntify any change. These findings were discussed by phone with Dr. Schmitt, the attending ER rachel luis at 2:50 p.m. 05/13/2025
--- NOTE | 2025-05-13 12:17 | ED_ITS ---
HPI - Abdominal Pain 2 General: Chief Complaint: Abdominal Pain Stated Complaint: abd pain Time Seen by Provider: 05/13/25 10:42 History of Present Illness: 79-year-old female with a history of obe sity, chronic pain syndrome, atrial fibrillation and a PE when she had COVID and chronic anticoagulation on Eliquis who presents emergency room with right upper quadrant pain, nausea and vomiting that started last night about 10 PM. No diarrhea. She had some chills but no known fevers. She is afebrile on presentation with normal vital signs. She has had no abdominal surgeries in the past. No chest pain. No altered mental status. Related Data Home Medications ?Medication ?Instructions ?Recorded ?Confirmed oxybutynin chloride 5 mg tablet 5 mg PO BID 08/31/21 0 05/13/25 cholecalciferol (vitamin D3) 125 125 mcg PO DAILY 07/2505/13/25 mcg (5,000 unit) capsule montelukast 10 mg tablet 10 mg PO DAILY 03/30/2505/04 (Singulair) acetaminophen 500 mg tablet 500 mg PO Q6H PRN Fever Or Pain 05/13/25 05/13/25 (Tylenol Extra Strength) ascorbic acid (vitamin C) 500 mg 1,000 mg PO DAILY 08/2805/13/25 tablet (Vitamin C) ibuprofen 200 mg tablet (Advil) 800 mg PO Q6H PRN Feve r Or Pain 05/13/25 05/13/25 Previous Rx's ?Medication ?Instructions ?Recorded apixaban 5 mg tablet (Eliquis) 5 mg PO BID #60 tabs furosemide 20 mg tablet 20 mg PO DAILY #90 tabs 09/05 12/28 metoprolol tartrate 25 mg tablet 12.5 mg (1/2 x 25 mg) PO BID #90 09/25/24 tabs Allergies Allergy/AdvReac Type Severity Reaction Status Date / Time codeine AdvReac ADR-Headach Verified 03/30/25 14:38 e Review of Systems 2 Narrative: Constitutional symptoms: Negative except as documented in HPI. Skin symptoms: Negative except as documented in HPI. Eye symptoms: Negative except as documented in HPI. ENMT symptoms: Negative except as documented in HPI. Respiratory symptoms: Negative except as documented in HPI. Cardiovascular symptoms: Negative except as documented in HPI. Gastrointestinal symptoms: Negative except as documented in HPI. Genitourinary symptoms: Negative except as documented in HPI. Musculoskeletal symptoms: Negative except as documented in HPI. Neurologic symptoms: Negative except as documented in HPI. Psychiatric symptoms: Negative except as documented in HPI. Endocrine symptoms: Negative except as documented in HPI. PFSH ED 2 PFSH: Medical History (Updated 05/13/25 @ 15:13 by Jenny Schmitt MD) [facility] (current) use of opiate analgesic Pain management contract signed Atrial fibrillation CHF (congestive heart failure), NYHA class III History of ankle fracture Surgical History History of D&C 05/09/2018 Hx of bilateral cataract extraction insertion of intracocular lens History of back surgery Hx of carpal tunnel repair Hx of knee surgery Family History Mother Congestive heart failure (CHF) Cancer colon cancer Diabetes Thyroid disease Stroke Son Diabetes Denies family history of Clotting disorder Hyperlipidemia Chronic kidney disease (CKD) Bleeding disorder Hypertension Social History Smoking and tobacco/nicotine status: former use of tobacco/nicotine Quit status (tobacco/nicotine): has quit using Year quit tobacco: 1977 Former quit date comment: Hx of 0.5 PPD x 10 Years Second hand smoke exposure: No Alcohol intake: never Substance/Drug Use: never Lives independently: Yes Household members: children Marital status: / Current occupational status: retired Do you think of yourself as: Straight/Heterosexual Current gender identity: Female Physical Exam 2 Narrative: EXAM NARRATIVE: General: Alert, no acute distress. Skin: Warm, dry. Head: Normocephalic, atraumatic. Neck: Supple, trachea midline. Eye: Extraocular movements are intact. Ears, nose, mouth and throat: Tacky oral mucosa Cardiovascular: Regular, Normal peripheral perfusion. Respiratory: Lungs are clear to auscultation, respirations are non-labored, breath sounds are equal, Symmetrical chest wall expansion. Gastrointestinal: Soft, moderate right upper quadrant tenderness to palpation, Non distended Musculoskeletal: Normal ROM, no deformity. Neurological: Alert and oriented, No focal neurological deficit observed. Psychiatric: Cooperative, appropriate mood & affect. Course 2 Vital Signs: Vital signs: Vital Signs Temperature 98.7 F 05/13/25 10:43 Pulse Rate 81 05/13/25 14:31 Respiratory Rate 16 05/13/25 14:31 Blood Pressure 142/64 05/13/25 14:31 Pulse Oximetry 95 05/13/25 14:31 Oxygen Delivery Me thod Room Air 05/13/25 14:31 MDM - Abdominal Pain Medical Decision Making Differential diagnosis for patient presenting with right upper quadrant abdominal pain including but not limited to and based on the above HPI, review of systems and physical exam: Cholelithiasis or cholecystitis. Hepatitis. Diverticulitis. Constipation. Ureterolithiasis. Urinary tract infection. Appendicitis. colitis. small bowel obstruction. crohn's flare. pancreatitis. gastritis. peptic ulcer. Aortic disection. Workup including imaging and lab work replaced based on the above differential, history and exam to evaluate differential diagnosis EKG: Time 12:06 AM. Rate 86. Normal sinus rhythm, nonspecific ST and T wave abnormalities, no ectopy, normal [place] & QRS intervals, This was reviewed and interpreted by myself the ER physician at 12:10 AM Lab Review: Laboratory results were reviewed and interpreted by myself the emergency room physician. Moderate leukocytosis with white count of 14,000. No anemia. No renal failure. Urinalysis is positive for urinary tract infection with nitrate positive, 21-50 reds and 21-50 whites with an excessive amount of bacteria. Ultrasound right upper quadrant: 8 mm obstructing stone lodged in the common bile duct. Multiple stones in gallbladder. Mild gallbladder wall thickening and probable mild edema of the gallbladder ward. Probably acute early cholecystitis. Mild intrahepatic ductal dilatation. Bilateral parapelvic renal cysts. Bilateral renal atrophy. Additional findings below. This was reviewed and interpreted by myself the emergency room physician. I also reviewed the radiology report. CT of the abdomen pelvis with contrast: I ordered this to further liver evaluate the abdomen as there is concern for kidney stones. She has hematuria so I felt the complete evaluation was necessary. CT scan is much the same as ultrasound. There were renal cysts but no kidney stones. Other findings below. This was reviewed and interpreted by myself the emergency room physician. I also reviewed the radiology report. I reviewed the patient's medical record. Reexamination: Patient has remained stable. Pain was improved some with morphine. Nausea has improved some with Zofran. No altered mental status. No focal motor deficits. We discussed transfer for need for gastroenterology and she agrees. Consultation: I spoke with Dr. Riki Alvarez who is with the hospitalist service at [facility] They currently do have both general surgery and gastroenterology on-call. He is excepted the patient in transfer. Assessment and plan: Choledocholithiasis Cholelithiasis Acute cholecystitis Urinary tract infection Transaminitis Hyperbilirubinemia ?IV Zosyn, 2 L normal saline bolus, IV morphine and IV Zofran. ?Transfer necessary for gastroenterology for possible ERCP. ?Patient has some mild leukocytosis but no elevation in her lactate and her vitals have remained normal so I do not think she is septic. She did receive 2 L normal saline which should be 30 mL/kg based on her ideal body weight. -I discussed the patient with the accepting physician on-call. - Discussed findings and plan with patient. Answered any questions. - All laboratory values were reviewed and interpreted personally by myself, the ER physician - All imaging was reviewed and interpreted personally by myself, the ER physician. - Evaluation and treatment of this problem were appropriate in the emergency setting Lab Data 05/13/25 11:18 05/13/25 11:18 Labs/Radiology: Radiology Impressions Abdomen Ultrasound 05/13/25 12:16 IMPRESSION: 1. Hepatomegaly and hepatic steatosis. 2. Dilated common bile duct measuring 1 cm in greatest diameter. The possibility of choledocholithiasis should be considered. 3. Multiple gallstones as well as sludge in the gallbladder. Probable mild gallbladder wall edema which may indicate early acute cholecystitis. 4. Probable multiple right renal parapelvic cysts. Hydronephrosis is felt to be less likely. 5. 1.7 cm hypoechoic nodule involving the LEFT hepatic lobe. The appearance is nonspecific but probably benign. Repeat ultrasound in 6 months suggested to identify any change. These findings were discussed by phone with Dr. Schmitt, the attending ER physician at 2:50 p.m. 05/13/2025 Abdomen/Pelvis CT 05/13/25 13:10 IMPRESSION: 1. 8 mm obstructing stone lodged in the common bile duct. Multiple stones in the gallbladder. Mild gallbladder wall thickening and probable mild edema of the gallbladder ward. Probable early acute cholecystitis. Mild intrahepatic ductal dilatation. 2. Bilateral parapelvic renal cysts are identified. Bilateral renal atrophy. 3. RIGHT adrenal lesion which may be a myolipoma or adenoma. 4. Mild colonic diverticulosis. Additional minor findings as above. Laboratory Results WBC 14.50 10^3/uL (3.29-11.43) H 05/13/25 11:18 RBC 4.31 10^6/uL (3.85-5.65) 05/13/25 11:18 Hgb 12.60 g/dL (11.27-16.99) 05/13/25 11:18 Hct 40.8 % (36-47) 05/13/25 11:18 MCV 94.7 fl (85-98) 05/13/25 11:18 MCH 29.2 pg (27-33) 05/13/25 11:18 MCHC 30.9 g/dL (30-55) 05/13/25 11:18 RDW 14.5 % (12.1-15.1) 05/13/25 11:18 Plt Count 272 10^3/cmm (157-399) 05/13/25 11:18 MPV 9.8 fL (7.4-10.4) 05/13/25 11:18 Neut % (Auto) 90.3 % 05/13/25 11:18 Lymph % (Auto) 2.3 % 05/13/25 11:18 [place] % (Auto) 6.4 % 05/13/25 11:18 Eos % (Auto) 0.0 % 05/13/25 11:18 Baso % (Auto) 0.3 % 05/13/25 11:18 Neut # (Auto) 13.09 10^3/uL (1.8-7.7) H 05/13/25 11:18 Lymph # (Auto) 0.3 10^3/uL (0.8-4.8) L 05/13/25 11:18 [place] # (Auto) 0.9 10^3/uL (0.2-0.9) 05/13/25 11:18 Eos # (Auto) 0.0 10^3/uL (0.0-0.8) 05/13/25 11:18 Baso # (Auto) 0.0 10^3/uL (0.0-0.1) 05/13/25 11:18 Nucleated RBC % (auto) 0 % 05/13/25 11:18 Nucleated RBCs # 0.0 /100WBC 05/13/25 11:18 Sodium 137 mmol/L (136-145) 05/13/25 11:18 Potassium 4.0 mmol/L (3.5-5.1) 05/13/25 11:18 Chloride 100 mmol/L (98-107) 05/13/25 11:18 Carbon Dioxide 22 mmol/L (22-29) 05/13/25 11:18 Anion Gap 19.0 (5-19) 05/13/25 11:18 BUN 14 mg/dL (8-23) 05/13/25 11:18 Creatinine 0.8 mg/dL (0.5-0.9) 05/13/25 11:18 GFR Calculation Not Reportable 05/13/25 11:18 Glucose 194 mg/dL (65-115) H 05/13/25 11:18 Calculated Osmolality 290 mOsm/kg (285-295) 05/13/25 11:18 Lactic Acid 2.2 mmol/L (0.5-2.2) 05/13/25 11:18 Lactic Acid (Sepsis) 1.8 mmol/L (0.5-2.2) 05/13/25 14:27 Calcium 8.9 mg/dL (8.5-10.5) 05/13/25 11:18 Total Bilirubin 3.2 mg/dL (0.15-1.2) H 05/13/25 11:18 AST 397 U/L (0-32) H 05/13/25 11:18 ALT 317 U/L (0-33) H 05/13/25 11:18 Alkaline Phosphatase 150 U/L (35-105) H 05/13/25 11:18 Troponin T Baseline 12 ng/L (0-10) H 05/13/25 11:18 Troponin T 120 Minute 12.55 ng/L (0-10) H 05/13/25 12:54 Delta Troponin T 0.55 ABS# (0-10) 05/13/25 12:54 C-Reactive Protein 43.4 mg/L (0.0-4.9) H 05/13/25 11:18 Total Protein 6.2 g/dL (6.6-8.7) L 05/13/25 11:18 Albumin 3.8 g/dL (3.5-5.2) 05/13/25 11:18 Globulin 2.4 g/dL (1.3-4.6) 05/13/25 11:18 Lipase 47 U/L (13-60) 05/13/25 11:18 Urine Color Dark yellow (Yellow) A 05/13/25 11:50 Urine Appearance Cloudy (CLEAR) A 05/13/25 11:50 Urine pH 6.0 (5-7) 05/13/25 11:50 Ur Specific [place] 1.020 (1.005-1.030) 05/13/25 11:50 Urine Protein Trace (Negative) A 05/13/25 11:50 Urine Glucose (UA) Negative (Normal) 05/13/25 11:50 Urine Ketones Trace (Negative) 05/13/25 11:50 Urine Blood 2+ (Negative) A 05/13/25 11:50 Urine Nitrate Positive (Negative) A 05/13/25 11:50 Urine Bilirubin 1+ (Negative) H 05/13/25 11:50 Urine Urobilinogen 2.0 mg/dL (Negative) H 05/13/25 11:50 Ur Leukocyte Esterase 2+ (Negative) A 05/13/25 11:50 Urine RBC 21-50 /hpf (0-2) H 05/13/25 11:50 Urine WBC 21-50 /hpf (0-5) H 05/13/25 11:50 Ur Squamous Epith Cells 0-5 /hpf (0-5) 05/13/25 11:50 Amorphous Sediment Not Reportable 05/13/25 11:50 Urine Bacteria Exceeds /hpf (NONE) 05/13/25 11:50 Hyaline Casts 2.58 /lpf 05/13/25 11:50 All radiology interpretation(s) finalized by discharge Discharge Plan Discharge Patient Disposition: Xfer Short-Term Hosp Clinical Impression: Choledocholithiasis, Cholelithiasis, Acute cholecystitis, Transaminitis, Hyperbilirubinemia, Urinary tract infection Condition: Stable Referrals: Isreal,RODRICK VitaleP [Primary Care Provider, Nurse Practitioner] Print Language: Nigerien Coding Level of Care Code ED 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
[2025-05-13 13:09] LABS: Reflex Lactate Order REFLEX LACTIC ORDERD
--- NOTE | 2025-05-13 13:10 | CT_ITS ---
WS: [id number] Exam: CT abdomen pelvis w con* [id number] Date/Time of Exam: 05/13/2025 1:17 PM Reason For Exam: Abdominal pain DLP: 1262.[address] scans at [facility] use at least one of these dose optimization techniques: automated exposure control; mA and/or kV adjustment per patient size (includes targeted exams where dose is matched to clinical indication); or iterative reconstruction. Dependent changes in the lower lung zones. The heart is enlarged. There is mild dilatation of the intrahepatic ducts. There are stones in the gallbladder. No gallbladder wall edema or pericholecystic fluid. There is dilatation of the common bile duct with probable stone lodged in the duct. The spleen and stomach are unremarkable. Small hiatal hernia. The pancreas is unremarkable. The abdominal aorta is normal in contour. The IVC is patent. 4 x 3 cm mass in the RIGHT adrenal gland. Normal LEFT adrenal gland. No lymphadenopathy. No free air. There are multiple bilateral renal parapelvic cysts noted. Small bowel loops are normal in caliber. Normal appendix visualized. Diverticulosis of the lower desce nding and sigmoid colon. No sign of acute diverticulitis. In the pelvis there was no mass or lymphadenopathy. Urinary bladder is intact. Small amount air in the lower uterine segment. No destructive bone lesions. Tiny periumbilical fat filled hernia. CT/CT abdomen pelvis w con* [id number] IMPRESSION: 1. 8 mm obstructing stone lodged in the common bile duct. Multiple stones in th e gallbladder. Mild gallbladder wall thickening and probable mild edema of the gallbladder ward. Probable early acute cholecystitis. Mild intrahepatic ductal dilatation. 2. Bilateral parapelvic renal cysts are identified. Bilateral renal atrophy. 3. RIGHT adrenal lesion which may be a myolipoma or adenoma. 4. Mild colonic diverticulosis. Additional minor findings as above.
[2025-05-13] MEDS: iohexol 350 mg/mL 500 mL Btl (per mL) IV (13:24)
[2025-05-13 13:44] LABS: Troponin 5 2HR 12.55 ng/L (0-10); Troponin 5 2HR Delta 0.55 ABS# (0-10)
--- NOTE | 2025-05-13 13:50 | PC.PHAR ---
Patient states she is still taking Eliquis and first said she gets it at [facility] [place] ,when I told her I spoke to the Pharmacy and they didn't have a current fill date she said she got it mail ordered. Only Current medications [facility] has on file is a singular 10mg , 04/22/25 and a Oxybutin Chloride 5mg 02/24/2590days.
[2025-05-13 14:31] VITALS: BP 142/64; PULSE 81; RESP 16; O2SAT 95
[2025-05-13 14:48] LABS: Lactic Acid level (Lactate) 1.8 mmol/L (0.5-2.2)
[2025-05-13] MEDS: piperacillin-tazobactam 4.5 GM in sodium chloride 0.9% (plus) 50 ML IV (15:59)
[2025-05-14 01:19] LABS: Bacteroides fragilis Not Detected (NOT DETECT); CTX-M Not Detected (NOT DETECT); Citrobacter Not Detected (NOT DETECT); Cronobacter sakazakii Not Detected (NOT DETECT); Enterobacter non cloacae Not Detected (NOT DETECT); Fusobacterium necrophorum Not Detected (NOT DETECT); Fusobacterium nucleatum Not Detected (NOT DETECT); IMP Resistance Gene Not Detected (NOT DETECT); KPC Resistance Gene Not Detected (NOT DETECT); Klebsiella pneumoniae group Not Detected (NOT DETECT); Morganella morganii Not Detected (NOT DETECT); NDM Resistance Gene Not Detected (NOT DETECT); OXA Resistance Gene Not Detected (NOT DETECT); Pan Candida Not Detected (NOT DETECT); Pan Gram-Positive Not Detected (NOT DETECT); Proteus mirabilis Not Detected (NOT DETECT); Serratia Not Detected (NOT DETECT); Serratia marcescens Not Detected (NOT DETECT); Stenotrophomonas maltophilia Not Detected (NOT DETECT); VIM Resistance Gene Not Detected (NOT DETECT)
--- NOTE | 2025-05-14 01:36 | PC.NURSE ---
This nurse took a critical lab on this patient. Pt was sent over the [facility] in [place]. this nurse spoke to Sara Rajan RN who is in care of pt. This nurse gave her lab result. Pt results will be faxed over to [facility] at [facility].
== END 2025-05-13 16:58 | disposition short-term general hospital (02) ==
PROVIDERS: Family Medicine; Emergency Provider Emergency Medicine; PCP Nurse Practitioner Family
DX: K80.40 Calculus of bile duct with cholecystitis, unspecified, without obstruction (principal); R74.01 Elevation of levels of liver transaminase levels; E80.6 Other disorders of bilirubin metabolism; N39.0 Urinary tract infection, site not specified; Z87.891 Personal history of nicotine dependence; I50.9 Heart failure, unspecified
CPT/HCPCS: 36415; 74177; 76705; 80053; 81001; 83605; 83690; 84484; 85025; 86140; 87040; 87077; 87086; 87150; 87186; 87205; 93005; 96365; 96375; 99285; J2270; J2405; J2543; J7030